=== PATIENT | female | born 1965 | race Caucasian/White ===

== ENCOUNTER 2016-10-30 08:57 | Emergency (ER) | payer OTHER ==
[~2016-10-30] VITALS: Ht 162.6 cm; Wt 91.0 kg
[~2016-10-30 08:57] MED LIST: AMT24 PO; AMT50 PO; ASPI81TA28 PO; ATOR-22 PO; BISA10SU38 PR; CHOL20007 PO; CLON0.5T3 PO; CYCL10TA6 PO; DICY20TA10 PO; ESOM20CA PO; GABA-113 PO; METF-384 PO; PANT40TA PO; POLY335025 PO; PROM25TA9 PO; QUET1TAB34 PO; SENN-65 PO; SNQ/25 PO; ZNTT/150 PO; ZOLP5TAB6 PO
[2016-10-30 09:05] VITALS: TEMP 36.6; Ht 162.6 cm; Wt 91.0 kg
[2016-10-30] MEDS ORDERED: OXYCODONE/ACETAMINOPHEN 5-325 TAB PO ONE (10:00)
--- NOTE | 2016-10-30 10:46 | EMERGENCY ROOM VISIT NOTE ---
History First contact with patient: 09:12 Chief Complaint: ANKLE PAIN Stated Complaint: L ANKLE,HIP PAIN History of Present Illness The patient is a 51 year old female who presents to the Emergency Room with complaints of left leg pain. The patient states that 1.5 months ago she fell down the steps. The patient states she saw her family doctor and had an x-ray of the ankle which was negative. The patient states she has also seen her lead carpenter. She states she has an MRI possibly of her ankle scheduled. The patient states that the pain is in the left ankle and feels a somewhat radiates to the hip. She states that it is knifelike and she rates her discomfort a 6/ 10. She states she had a hematoma to the left anterior lower extremity but that has markedly improved. She denies any low back pain. She denies any loss of bowel or bladder control. She denies any saddle anesthesia. She denies any weakness in the lower extremities. She denies any abdominal pain, nausea or vomiting. Review of Systems A 10 system review of systems was completed with positives and pertinent negatives listed in the HPI. Past Medical/Surgical History Medical Problems: (1) Anxiety disorder (2) Colonoscopy (3) Exploratory laparotomy (4) History of - hysterectomy (5) History of seizure Social History Smoking Status: Never Smoker Alcohol Use: none Drug Use: none Marital Status: Housing Status: lives with family Current/Historical Medications Scheduled Amitriptyline Hcl (Elavil), 100 MG PO HS Aspirin (Aspirin Ec), 81 MG PO DAILY Atorvastatin (Lipitor), 20 MG PO DAILY Cholecalciferol (Vitamin D3), 2,000 UNITS PO DAILY Doxepin (Sinequan), 25 MG PO HS Gabapentin (Neurontin), 300 MG PO TID Lubiprostone (Amitiza), 24 MCG PO BID Metformin Hcl (Glucophage), 1,000 MG PO BIDM Methylprednisolone (Medrol Dosepak), 1 PKT PO UD Pantoprazole (Protonix), 40 MG PO DAILY Quetiapine Fumarate (Seroquel), 100 MG PO AM & AFTERNOON Ranitidine (Zantac), 150 MG PO BID Scheduled PRN Clonazepam (Klonopin), 1 MG PO TID PRN for Anxiety Cyclobenzaprine Hcl (Flexeril), 10 MG PO BID PRN for SPASMS Dicyclomine Hcl (Dicyclomine Hcl), 20 MG PO BID PRN for ABD PAIN Oxycodone Ir (Roxicodone Ir), 1-2 TAB PO Q4H PRN for Pain Polyethylene Glycol 3350 (Miralax), 1 SCOOPS PO DIRECTED PRN for Constipation Promethazine Hcl (Phenergan), 25 MG PO Q8 PRN for Nausea Senna/Docusate Sod (Senokot S), 2 TAB PO BID PRN for Constipation Zolpidem Tartrate (Zolpidem Tartrate), 5 MG PO HS PRN for Sleep Allergies Coded Allergies: Metoclopramide (Verified Allergy, Intermediate, "NEURO COMPLICATIONS", 10/30) Ondansetron (Unverified Allergy, Unknown, HEART RACES, 10/30/16) Penicillins (Verified Allergy, Unknown, UNKNOWN, 10/30/16) Erythromycin (Verified Adverse Reaction, Unknown, NAUSEA, 10/30/16) Physical Exam Vital Signs Date Time Temp Pulse Resp B/P Pulse Ox O2 Delivery O2 Flow Rate FiO2 10/30/16 14:44 84 18 143/104 97 10/30/16 13:54 87 20 132/101 97 Room Air 10/30/16 12:00 86 18 145/111 98 Room Air 10/30/16 10:45 83 16 125/88 97 Room Air 10/30/16 09:05 36.6 89 18 142/91 97 Room Air Physical Exam VITALS: Vitals are noted on the nurse's note and reviewed by myself. Vital signs stable. GENERAL: This 51-year-old female, in no acute distress, nondiaphoretic, well- developed well-nourished. SKIN: There is a very small hematoma to the left anterior tib-fib. There is no tenting of the skin. Capillary reflex less than 2 seconds. HEAD: Normocephalic atraumatic. EARS: The external ears are normal in appearance EYES: Pupils equal round and reactive to light and accommodation. Conjunctivae without injection, sclerae without icterus. Extraocular movements intact. NOSE: Patent, turbinates without inflammation or discharge. MOUTH: Mucous membranes moist. Tonsils are not enlarged. Pharynx without erythema or exudate. Uvula midline. Airway patent. Tongue does not deviate. NECK: Supple without nuchal rigidity. No lymphadenopathy. No thyromegaly. Cervical spine is nontender. No JVD. HEART: Regular rate and rhythm without murmurs gallops or rubs. LUNGS: Clear to auscultation bilaterally without wheezes, rales or rhonchi. No retractions or accessory muscle use. ABDOMEN: Positive bowel sounds x 4. Soft, nontender, without masses or organomegaly. MUSCULOSKELETAL: No muscle atrophy, erythema, or edema noted. Full range of motion in all extremities. There is mild tenderness to palpation to the left hip. There is tenderness to palpation to the lateral aspect of the left ankle. Normal gait. Strength 5/5 throughout. NEURO: Patient was alert and oriented to person place and time. No focal neurological deficits. Medical Decision & Procedures ER Provider Diagnostic Interpretation: [~ rep ct add3]] MRI OF LUMBAR SPINE WITHOUT IV CONTRAST CLINICAL HISTORY: Low back pain. Left leg pain. Fracture suggested by x-ray. COMPARISON STUDY: Radiographs of lumbar spine dated 10/30/2016. TECHNIQUE: MRI of lumbar spine is performed utilizing various T1 and T2-weighted sequences in the axial and sagittal planes. IV contrast was not administered for this examination. FINDINGS: Lumbar spine: Vertebral body height and alignment are maintained throughout the lumbar spine. There is no MRI evidence of fracture. There is straightening of the lumbar lordosis. Marrow signal intensity is slightly heterogeneous. Small anterior osteophytes are noted throughout. Chronic degenerative endplate change is identified at L2-L3. The transverse and spinous processes are intact. No spondylolysis is seen. Minimal degenerative endplate edema is present at L5-S1. Intervertebral discs: There is mild degenerative disc desiccation throughout the lumbar spine. Loss of height is seen at L2-L3 and L5-S1. Spinal cord: The visualized spinal cord is normal in morphology and signal intensity. Conus medullaris terminates at the T12-L1 interspace. The nerve roots of the cauda equina are normal in morphology. L1-L2: Unremarkable. L2-L3: There is broad-based posterior disc bulge with annular fissure. There is no significant acquired compromise of the central canal at this level. The neural foramina are patent. L3-L4: Unremarkable. L4-L5: Minimal facet arthropathy is of no consequence. The central canal and neural foramina are widely patent. L5-S1: There is a disc herniation eccentric to the left. There is a superiorly extruded disc fragment on the left which measures up to 1.7 cm. This narrows the left aspect of the central canal where there is a minimum AP diameter of 4.5 mm. This impinges on the exiting left L5 and the transiting left sided sacral nerve roots. There is moderate subarticular stenosis on the left. Facet arthropathy is of no consequence. The neural foramina are patent. Sacrum: Visualized sacrum is normal in morphology and signal intensity. Soft tissues: The paraspinous soft tissues are normal as visualized. Partially imaged retroperitoneal structures are grossly normal but incompletely assessed. IMPRESSION: 1. There is no MRI evidence of fracture as clinically queried. 2. There is a disc herniation eccentric to the left at L5-S1 with a large superiorly extruded fragment. This impinges on the exiting left L5 and the transiting left-sided sacral nerve roots. 3. Mild spondylotic change at the remaining lumbar levels as above. See discussion for detailed level by level analysis. LEFT ANKLE 3 VIEWS CLINICAL HISTORY: Fall with left ankle pain. FINDINGS: 3 views of the left ankle are obtained. No prior studies are available for comparison at the time of dictation. The skeletal structures are well mineralized. No fracture is seen. The ankle mortise is intact. There is no ankle joint effusion. The overlying soft tissues are within normal limits. IMPRESSION: No acute bony abnormality is seen in the left ankle. LEFT FEMUR 3 VIEWS CLINICAL HISTORY: Fall with left leg pain. FINDINGS: AP, frog-leg, and lateral views of the left femur are obtained. No prior studies are available for comparison at the time of dictation. The skeletal structures are well mineralized. No left femoral fracture is seen. The visualized left hemipelvis appears intact. Mild sclerotic change is present in the left sacroiliac joint. The hip and knee joints appear preserved. The overlying soft tissues are within normal limits. A large phlebolith is noted in the pelvis. IMPRESSION: There is no radiographic evidence of left femoral fracture. L-SPINE MIN 4 VIEWS ROUTINE CLINICAL HISTORY: Fall. COMPARISON: Lumbar spine radiographs April 29, 2011. FINDINGS: There is slight loss of height of the superior endplate of L3. This is new since exam of April 29, 2011. Otherwise, vertebral body heights are maintained. There is no definite acute fracture. Mild multilevel degenerative disc disease and facet arthrosis is present. Sacroiliac joints are intact. IMPRESSION: 1. Mild loss of height of the superior endplate of L3. This is age indeterminate although favor a chronic finding. 2. Mild multilevel degenerative disc disease and facet arthrosis of the lumbar spine. PELVIS 1 OR 2 VIEW ROUTINE CLINICAL HISTORY: Fall. COMPARISON STUDY: CT of the abdomen and pelvis January 07, 2013. FINDINGS: The sacroiliac joints and symphysis pubis are intact. There is no acute fracture within the pelvis or the hips. Hip joint spaces are preserved. There is mild osteophytosis of the hips. A left pelvic calcification represents a phlebolith. IMPRESSION: No acute fracture within the pelvis or hips. Medications Administered Medications (Trade) Dose Ordered Sig/Yenny Route Start Time Stop Time Status Last Admin Dose Admin Oxycodone/ Acetaminophen (Percocet 5-325mg Tab) 1 tab NOW ONCE PO 10/30/16 10:00 10/30/16 10:01 DC 10/30/16 10:44 1 TAB Morphine Sulfate (MoRPHine SULFATE INJ) 4 mg NOW STAT IM 10/30/16 14:01 10/30/16 14:02 DC 10/30/16 14:12 4 MG ED Course The patient was seen and examined. Previous visits were reviewed. The patient is afebrile. She is nontoxic in appearance. She was initially given 1 oral Percocet. The patient complains of left leg and ankle pain after falling nearly 2 months ago. She has been evaluated by her family doctor and lead carpenter. X-rays did not reveal any significant abnormality. There was a question of a possible compression fracture at L3. The patient's symptoms seemed more likely to represent lumbar radiculopathy. She has a burning pain radiates down the lateral aspect of her left leg. However, she denies any true back pain. She has not had any loss of bowel or bladder control, saddle anesthesia, numbness, tingling or weakness in the lower extremities. I did obtain an MRI of the lumbar spine which reveals a herniated lumbar disc. I discussed the case with Dr. Desir. He recommends Toradol, gabapentin, prednisone and pain medication. He can follow the patient in the office. The patient stated that Toradol does not help her. She states she is already on gabapentin 300 mg 3 times a day for diabetic neuropathy. She did accept the Medrol Dosepak and pain medication. She should return to the emergency Department with any worsening symptoms. Otherwise, she should contact Dr. Desir's office to schedule a follow-up appointment for further evaluation and management. The case was discussed with who agrees with the assessment and treatment plan. Medical Decision DIFFERENTIAL DIAGNOSIS: Lumbar strain, degenerative disc disease, spondylolisthesis, herniated disc, spinal stenosis, osteoporosis, fracture, cauda equina syndrome, neoplasm, infection, inflammatory arthritis, extremity fracture, contusion, sprain, among others. [place] Drug Monitoring Program Search Results: patient reviewed within database, no issues identified Impression Primary Impression: Herniated lumbar intervertebral disc Additional Impression: Back pain with radiation Departure Information Dispostion Home / Self-Care Condition GOOD Prescriptions Oxycodone Ir (Roxicodone Ir) 5 Mg Tab 1-2 TAB PO Q4H Y for Pain, #36 TAB For Initial Treatment Prov: Yuni Chavez PA-C 10/30/16 Methylprednisolone (MEDROL DOSEPAK) 4 Mg Socrates 1 PKT PO UD, #1 PKT Prov: Yuni Chavez PA-C 10/30/16 Referrals Fatou Dailey M.D. (PCP) Behzad Desir, DO Patient Instructions ED Disk Intervertebral Herniated, My [facility] Additional Instructions Motrin 600 mg every 6-8 hours for moderate pain Continue your gabapentin Oxy IR 1-2 tablets every 4-6 hrs as needed for worse pain. No driving or alcohol use with Oxy IR. Contact Dr. Desir's office to schedule a follow-up appointment for further evaluation and management; [phone] Return with any fevers, worsening symptoms, loss of bowel or bladder control, numbness in the groin or generalized worsening symptoms Problem Qualifiers
--- NOTE | 2016-10-30 10:52 | DIAGNOSTIC IMAGING REPORT ---
L-SPINE MIN 4 VIEWS ROUTINE CLINICAL HISTORY: Fall. COMPARISON: Lumbar spine radiographs April 29, 2011. FINDINGS: There is slight loss of height of the superior endplate of L3. This is new since exam of April 29, 2011. Otherwise, vertebral body heights are maintained. There is no definite acute fracture. Mild multilevel degenerative disc disease and facet arthrosis is present. Sacroiliac joints are intact. IMPRESSION: 1. Mild loss of height of the superior endplate of L3. This is age indeterminate although favor a chronic finding. 2. Mild multilevel degenerative disc disease and facet arthrosis of the lumbar spine. Electronically signed by: Jhonathan Claire M.D. 10/30/2016 10:51 AM Dictated Date/Time: 10/30/2016 10:48 AM
--- NOTE | 2016-10-30 13:34 | DIAGNOSTIC IMAGING REPORT ---
MRI OF LUMBAR SPINE WITHOUT IV CONTRAST CLINICAL HISTORY: Low back pain. Left leg pain. Fracture suggested by x-ray. COMPARISON STUDY: Radiographs of lumbar spine dated 10/30/2016. TECHNIQUE: MRI of lumbar spine is performed utilizing various T1 and T2-weighted sequences in the axial and sagittal planes. IV contrast was not administered for this examination. FINDINGS: Lumbar spine: Vertebral body height and alignment are maintained throughout the lumbar spine. There is no MRI evidence of fracture. There is straightening of the lumbar lordosis. Marrow signal intensity is slightly heterogeneous. Small anterior osteophytes are noted throughout. Chronic degenerative endplate change is identified at L2-L3. The transverse and spinous processes are intact. No spondylolysis is seen. Minimal degenerative endplate edema is present at L5-S1. Intervertebral discs: There is mild degenerative disc desiccation throughout the lumbar spine. Loss of height is seen at L2-L3 and L5-S1. Spinal cord: The visualized spinal cord is normal in morphology and signal intensity. Conus medullaris terminates at the T12-L1 interspace. The nerve roots of the cauda equina are normal in morphology. L1-L2: Unremarkable. L2-L3: There is broad-based posterior disc bulge with annular fissure. There is no significant acquired compromise of the central canal at this level. The neural foramina are patent. L3-L4: Unremarkable. L4-L5: Minimal facet arthropathy is of no consequence. The central canal and neural foramina are widely patent. L5-S1: There is a disc herniation eccentric to the left. There is a superiorly extruded disc fragment on the left which measures up to 1.7 cm. This narrows the left aspect of the central canal where there is a minimum AP diameter of 4.5 mm. This impinges on the exiting left L5 and the transiting left sided sacral nerve roots. There is moderate subarticular stenosis on the left. Facet arthropathy is of no consequence. The neural foramina are patent. Sacrum: Visualized sacrum is normal in morphology and signal intensity. Soft tissues: The paraspinous soft tissues are normal as visualized. Partially imaged retroperitoneal structures are grossly normal but incompletely assessed. IMPRESSION: 1. There is no MRI evidence of fracture as clinically queried. 2. There is a disc herniation eccentric to the left at L5-S1 with a large superiorly extruded fragment. This impinges on the exiting left L5 and the transiting left-sided sacral nerve roots. 3. Mild spondylotic change at the remaining lumbar levels as above. See discussion for detailed level by level analysis. Dictated: 10/30/2016 1:07 PM Transcribed: 10/30/2016 1:33 PM [email or web address] Electronically signed by: Andre Kaiser M.D. 10/30/2016 1:45 PM Dictated Date/Time: 10/30/2016 1:07 PM
[2016-10-30] MEDS ORDERED: MoRPHine SULFATE 4 MG/ML 1 ML CARP\\VIAL IM STA (14:01)
[2016-10-30] MEDS ORDERED: OXYC1TAB3 PO (14:03)
[2016-10-30] MEDS ORDERED: METH4PAK PO (14:03)
[2016-10-30 14:44] VITALS: BP 143/104; PULSE 84; O2SAT 97
[2016-12-19] MEDS ORDERED: IBUP-1451 PO (13:37)
[2017-01-06] MEDS ORDERED: GABA400C PO (08:07)
== END 2016-10-30 14:46 | disposition home or self-care (01) ==
LOC: C.EDB 08:59
DX: M51.26 Other intervertebral disc displacement, lumbar region (principal); M54.5 Low back pain; M25.572 Pain in left ankle and joints of left foot; F41.9 Anxiety disorder, unspecified; Z90.710 Acquired absence of both cervix and uterus; Z79.82 Long term (current) use of aspirin

== ENCOUNTER → 2016-11-12 | Outpatient (CLI) | payer OTHER ==
[~2016-11-12] MED LIST changes: -BISA10SU38 PR; -ESOM20CA PO; +GABA400C PO; +IBUP-1451 PO; +OXYC1TAB3 PO
--- NOTE | 2016-11-12 11:18 | DIAGNOSTIC IMAGING REPORT ---
Venous Doppler left leg VENOUS DOPP LOWER EXT UNILAT CLINICAL HISTORY: I83.221 pain. Edema. TECHNIQUE: Venous Doppler COMPARISON STUDY: None FINDINGS: Normal study IMPRESSION: Normal study Electronically signed by: Jose L Plascencia M.D. 11/12/2016 11:17 AM Dictated Date/Time: 11/12/2016 11:16 AM
== END | disposition home or self-care (01) ==
LOC: C.ULTR 10:36
PROVIDERS: ATTEND Podiatrist
DX: I83.221 Varicose veins of left lower extremity with both ulcer of thigh and inflammation (principal)

== ENCOUNTER 2017-08-29 11:39 | Emergency (ER) | payer OTHER ==
[~2017-08-29] VITALS: Ht 157.5 cm; Wt 90.0 kg
[~2017-08-29 11:39] MED LIST changes: +CLB/200 PO; -GABA-113 PO; -OXYC1TAB3 PO; +QUET1TAB11 PO; +TRAM-10 PO
[2017-08-29 11:44] VITALS: TEMP 36.9; Ht 157.5 cm; Wt 90.0 kg
[2017-08-29] MEDS ORDERED: HYDROmorphone INJ 1 MG/ML SYR IV STA (12:24)
[2017-08-29] MEDS ORDERED: PROMETHAZINE HCL INJ 25 MG in SODIUM CHLORIDE 0.9% 50ML 50 ML IV STA (12:24)
[2017-08-29 12:36] LABS: BASO % 0.4 %; BASO ABS # 0.05 K/uL (0-0.2); COMPLETE YES; EOS % 0.6 %; HEMATOCRIT 42.6 % (37-47); IG% 0.3 %; LYMPH % 18.3 %; LYMPH ABS # 2.17 K/uL (1.2-3.4); MEAN CORPUSCULAR HEMOGLOBIN 32.3 pg (25-34); MEAN CORPUSCULAR HGB CONC 33.3 g/dl (32-36); MEAN PLATELET VOLUME 10.1 fL (7.4-10.4); MONO % 5.6 %; NEUT % 74.8 %; PLATELET COUNT 253 K/uL (130-400); RED BLOOD COUNT 4.39 M/uL (4.2-5.4); WHITE BLOOD COUNT 11.88 K/uL (4.8-10.8)
[2017-08-29 12:45] LABS: ALT/SGPT 46 U/L (12-78); AST/SGOT 29 U/L (15-37); BLOOD UREA NITROGEN 14 mg/dl (7-18); BUN/CREATININE RATIO 12.7 (10-20); CALCIUM 9.4 mg/dl (8.5-10.1); CARBON DIOXIDE 22 mmol/L (21-32); CHLORIDE 108 mmol/L (98-107); CREATININE 1.12 mg/dl (0.60-1.20); GLUCOSE 128 mg/dl (70-99); POTASSIUM 3.9 mmol/L (3.5-5.1); SODIUM 137 mmol/L (136-145)
[2017-08-29] MEDS ORDERED: OPTIRAY 320 IV PRN (12:45)
[2017-08-29 12:48] LABS: ALKALINE PHOSPHATASE 119 U/L (45-117)
--- NOTE | 2017-08-29 12:59 | EMERGENCY ROOM VISIT NOTE ---
History Report prepared by Namrata: Isabel Lion Under the Supervision of: Dr. Jose Luis Watson M.D. First contact with patient: 12:13 Chief Complaint: ABDOMINAL PAIN Stated Complaint: UPSET STOMACH Nursing Triage Summary: "very upset stomach x1 week". Nausea and vomiting, and passing out since last night. History of Present Illness The patient is a 52 year old female who presents to the Emergency Room with complaints of intermittent abdominal pain for one week [employer]. She also notes a "really bad" headache. She currently rates her pain a 5/10 in severity. She notes nausea, vomiting, and syncope since last night. She has a history of hysterectomy, adhesions, and bowel issues. Upon speaking with the patient's daughter via phone, the patient took more doses of her medication than prescribed. The daughter notes that her mother's prescription is due for a refill September 06, 2017, though she has already run out of the medication. The patient admitted to taking 1.5 doses of Seroquel last night, though denies taking amitriptyline. The patient claims that she has not been sleeping well for the past three weeks. Per the , the patient has "slept for the past four days straight, because she is high on pills." The patient notes that she is currently depressed. Source of History: patient Onset: one week [employer] Position: abdomen Symptom Intensity: 5/10 Quality: other (abdominal pain) Timing: intermittent Associated Symptoms: + headache, + nausea, + vomiting, + abdominal pain Note: She notes syncope. Review of Systems See HPI for pertinent positives & negatives. A total of 10 systems reviewed and were otherwise negative. Past Medical & Surgical Medical Problems: (1) Anxiety disorder (2) Colonoscopy (3) Exploratory laparotomy (4) History of - hysterectomy (5) History of seizure Depression Family History No pertinent family history reported. Social History Smoking Status: Never Smoker Alcohol Use: none Drug Use: none Marital Status: Housing Status: lives with family Occupation Status: unemployed Current/Historical Medications Scheduled Amitriptyline Hcl (Elavil), 100 MG PO HS Aspirin (Aspirin Ec), 81 MG PO DAILY Atorvastatin (Lipitor), 20 MG PO DAILY Celecoxib (CeleBREX), 200 MG PO DAILY Cholecalciferol (Vitamin D3), 2,000 UNITS PO DAILY Doxepin (Sinequan), 25 MG PO HS Gabapentin (Neurontin), 400 MG PO TID Lubiprostone (Amitiza), 24 MCG PO BID Metformin Hcl (Glucophage), 1,000 MG PO BIDM Pantoprazole (Protonix), 40 MG PO DAILY Quetiapine Fumarate (Seroquel), 300 MG PO DAILY Quetiapine Fumarate (Seroquel), 100 MG PO BID Ranitidine (Zantac), 150 MG PO BID Scheduled PRN Clonazepam (Klonopin), 1 MG PO TID PRN for Anxiety Cyclobenzaprine Hcl (Flexeril), 10 MG PO BID PRN for SPASMS Dicyclomine Hcl (Dicyclomine Hcl), 20 MG PO BID PRN for ABD PAIN Polyethylene Glycol 3350 (Miralax), 1 SCOOPS PO DIRECTED PRN for Constipation Promethazine Hcl (Phenergan), 25 MG PO Q8 PRN for Nausea Senna/Docusate Sod (Senokot S), 2 TAB PO BID PRN for Constipation Zolpidem Tartrate (Zolpidem Tartrate), 5 MG PO HS PRN for Sleep Allergies Coded Allergies: Metoclopramide (Verified Allergy, Intermediate, "NEURO COMPLICATIONS", 08/29/17) Ondansetron (Unverified Allergy, Unknown, HEART RACES, 08/29/17) Penicillins (Verified Allergy, Unknown, UNKNOWN, 08/29/17) Erythromycin (Verified Adverse Reaction, Unknown, NAUSEA, 08/29/17) Physical Exam Vital Signs Date Time Temp Pulse Resp B/P (MAP) Pulse Ox O2 Delivery O2 Flow Rate FiO2 08/29/17 17:28 86 18 130/86 97 Room Air 08/29/17 16:52 85 08/29/17 16:45 85 18 127/84 98 Room Air 08/29/17 14:49 85 16 145/94 98 Room Air 08/29/17 13:47 84 18 142/87 97 Room Air 08/29/17 12:50 88 08/29/17 12:46 89 18 123/95 97 Room Air 08/29/17 11:44 36.9 101 18 145/102 97 Room Air Physical Exam GENERAL: Patient is a healthy-appearing well-nourished female, crying on exam. HEAD: Normocephalic atraumatic EYES: Ocular movements intact pupils equal and react to light OROPHARYNX mucous membranes are moist no exudates present no erythema or edema present NECK: Supple no nuchal rigidity. No evidence of meningitis or encephalitis on exam. CHEST: Good equal expansion LUNGS: Clear and equal to auscultation CARDIAC: Normal S1 and S2 ABDOMEN: Soft tender RUQ no guarding BACK: No CVA tenderness EXTREMITIES: No pain upon palpation normal muscle strength in all groups no clubbing cyanosis or edema NEURO: Patient has flat affect, though is following commands and is answering questions appropriately. Alert and oriented x3 Cranial Nerves 2-12 grossly intact. Medical Decision & Procedures ER Provider Diagnostic Interpretation: Radiology results as stated below per my review and radiologist interpretation: ABDOMINAL ULTRASOUND, RIGHT UPPER QUADRANT HISTORY: Right upper quadrant abdominal pain. COMPARISON: Right upper quadrant ultrasound January 07, [address] of the abdomen and pelvis July 27, 2017 FINDINGS: Hepatic echogenicity is increased. This suggests fatty infiltration. A 1.9 cm subcapsular echogenic focus within the medial segment of the left hepatic lobe likely reflects an area of pronounced fatty infiltration or hemangioma. No additional hepatic lesions are present. There is no biliary ductal dilatation. No gallstones are identified. There is no gallbladder wall thickening. There may be minimal sludge within the gallbladder. The pancreas is obscured by overlying bowel gas. There is no right hydronephrosis. IMPRESSION: 1. No gallstones or biliary ductal dilatation. Possible minimal sludge within the gallbladder. No gallbladder wall thickening. 2. Fatty infiltration of the liver. 3. 1.9 cm subcapsular echogenic medial segment left hepatic lobe focus which favors a hemangioma. Electronically signed by: Jhonathan Claire M.D. 08/29/2017 1:41 PM Dictated Date/Time: 08/29/2017 1:[address] OF THE ABDOMEN AND PELVIS WITH CONTRAST CLINICAL HISTORY: Right upper quadrant abdominal pain. COMPARISON STUDY: CT of the abdomen and pelvis July 27, 2017. TECHNIQUE: Following IV administration of 120 mL of Optiray-320, axial images of the abdomen and pelvis were obtained from the lung bases to the proximal femurs. Images were reviewed in the axial, sagittal, and coronal planes. IV contrast was administered without complication. A dose lowering technique was utilized adhering to the principles of ALARA. Oral contrast was administered. CT DOSE: 568.09 mGy.cm FINDINGS: Fatty infiltration of the liver is noted. The spleen, adrenal glands, kidneys and pancreas are unremarkable. There is no biliary or pancreatic ductal dilatation. There is no peripancreatic or pericholecystic infiltration. There is no hydronephrosis. There is a moderate amount stool within the colon. There is no evidence for a bowel obstruction. The appendix is normal. There is no lymphadenopathy. There is no ascites. No suspicious osseous lesions are present. IMPRESSION: 1. No acute process within the abdomen or pelvis. 2. Fatty infiltration of the liver. 3. Moderate amount of stool within the colon. No bowel obstruction. Normal appendix. Electronically signed by: Jhonathan Claire M.D. 08/29/2017 3:25 PM Dictated Date/Time: 08/29/2017 3:06 PM Laboratory Results 08/29/17 12:03 Red Blood Count 4.39, Mean Corpuscular Volume 97.0, Mean Corpuscular Hemoglobin 32.3, Mean Corpuscular Hemoglobin Concent 33.3, Mean Platelet Volume 10.1, Neutrophils (%) (Auto) 74.8, Lymphocytes (%) (Auto) 18.3, Monocytes (%) (Auto) 5.6, Eosinophils (%) (Auto) 0.6, Basophils (%) (Auto) 0.4, Neutrophils # (Auto) 8.89, Lymphocytes # (Auto) 2.17, Monocytes # (Auto) 0.66, Eosinophils # (Auto) 0.07, Basophils # (Auto) 0.05 08/29/17 12:03 Test 08/29/17 12:03 08/29/17 12:45 08/29/17 16:11 08/29/17 16:12 White Blood Count 11.88 K/uL (4.8-10.8) Red Blood Count 4.39 M/uL (4.2-5.4) Hemoglobin 14.2 g/dL (12.0-16.0) Hematocrit 42.6 % (37-47) Mean Corpuscular Volume 97.0 fL (80-100) Mean Corpuscular Hemoglobin 32.3 pg (25-34) Mean Corpuscular Hemoglobin Concent 33.3 g/dl (32-36) Platelet Count 253 K/uL (130-400) Mean Platelet Volume 10.1 fL (7.4-10.4) Neutrophils (%) (Auto) 74.8 % Lymphocytes (%) (Auto) 18.3 % Monocytes (%) (Auto) 5.6 % Eosinophils (%) (Auto) 0.6 % Basophils (%) (Auto) 0.4 % Neutrophils # (Auto) 8.89 K/uL (1.4-6.5) Lymphocytes # (Auto) 2.17 K/uL (1.2-3.4) Monocytes # (Auto) 0.66 K/uL (0.11-0.59) Eosinophils # (Auto) 0.07 K/uL (0-0.5) Basophils # (Auto) 0.05 K/uL (0-0.2) RDW Standard Deviation 49.7 fL (36.4-46.3) RDW Coefficient of Variation 14.0 % (11.5-14.5) Immature Granulocyte % (Auto) 0.3 % Immature Granulocyte # (Auto) 0.04 K/uL (0.00-0.02) Anion Gap 7.0 mmol/L (3-11) Est Creatinine Clear Calc Drug Dose 60.6 ml/min Estimated GFR () 64.9 Estimated GFR (Non- 56.0 BUN/Creatinine Ratio 12.7 (10-20) Calcium Level 9.4 mg/dl (8.5-10.1) Total Bilirubin 0.3 mg/dl (0.2-1) Direct Bilirubin < 0.1 mg/dl (0-0.2) Aspartate Amino Transf (AST/SGOT) 29 U/L (15-37) Alanine Aminotransferase (ALT/SGPT) 46 U/L (12-78) Alkaline Phosphatase 119 U/L (45-117) Total Creatine Kinase 76 U/L (26-192) Creatine Kinase MB 0.5 ng/ml (0.5-3.6) Creatine Kinase MB Ratio 0.7 (0-3.0) Troponin I < 0.015 ng/ml (0-0.045) Total Protein 8.2 gm/dl (6.4-8.2) Albumin 4.2 gm/dl (3.4-5.0) Lipase 109 U/L (73-393) Urine Color YELLOW Urine Appearance CLEAR (CLEAR) Urine pH 5.0 (4.5-7.5) Urine Specific [place] 1.017 (1.000-1.030) Urine Protein NEG (NEG) Urine Glucose (UA) NEG (NEG) Urine Ketones NEG (NEG) Urine Occult Blood NEG (NEG) Urine Nitrite POS (NEG) Urine Bilirubin NEG (NEG) Urine Urobilinogen NEG (NEG) Urine Leukocyte Esterase MODERATE (NEG) Urine WBC (Auto) >30 /hpf (0-5) Urine RBC (Auto) 0-4 /hpf (0-4) Urine Hyaline Casts (Auto) 5-10 /lpf (0-5) Urine Epithelial Cells (Auto) 10-20 /lpf (0-5) Urine Bacteria (Auto) 4+ (NEG) Urine Opiates Screen POS (NEG) Urine Methadone, Qualitative NEG (NEG) Urine Barbiturates NEG (NEG) Urine Phencyclidine (PCP) Level NEG (NEG) Ur Amphetamine/Methamphetamine NEG (NEG) MDMA (Ecstasy) Screen NEG (NEG) Urine Benzodiazepines Screen NEG (NEG) Urine Cocaine Metabolite NEG (NEG) Urine Marijuana (THC) POS (NEG) Salicylates Level 5.0 mg/dl (2.8-20) Acetaminophen Level < 2 ug/ml (10-30) Ethyl Alcohol mg/dL < 3.0 mg/dl (0-3) Labs reviewed by ED physician. Medications Administered Medications (Trade) Dose Ordered Sig/Yenny Route Start Time Stop Time Status Last Admin Dose Admin Hydromorphone HCl (Dilaudid Inj) 1 mg NOW STAT IV 08/29/17 12:24 08/29/17 12:27 DC 08/29/17 12:38 1 MG Promethazine HCl 25 mg/Sodium Chloride 51 ml @ 204 mls/hr NOW STAT IV 08/29/17 12:24 08/29/17 12:38 DC 08/29/17 12:37 204 MLS/HR Ceftriaxone Sodium (Rocephin Inj) 1 gm NOW STAT IV 08/29/17 13:10 08/29/17 13:11 DC 08/29/17 13:44 1 GM Magnesium Citrate (Citrate Of Magnesia Soln) 296 ml NOW STAT PO 08/29/17 17:20 08/29/17 17:22 DC 08/29/17 17:27 296 ML ECG Rate (beats per minute): 84 Rhythm: sinus rhythm Findings: PVC, no acute ischemic change ED Course 1220: Past medical records reviewed. The patient was evaluated in room A3. A complete history and physical examination was performed. 1224: Ordered Promethazine HCl 25 mg/Sodium Chloride 51 ml@ 204 mls/hr IV, Dilaudid 1 mg IV 1310: Ordered Rocephin 1 gm IV 1352: I reassessed the patient at this time. She is resting comfortably. 1550: I reassessed the patient at this time. The patient gave me permission to speak to her daughter regarding her case. It was revealed that the patient had taken an extra dose of her prescribed medication Seroquel last night. I am reassessing the patient for possible overdose. 1555: I spoke with Farrah, case management. We discussed the patient's case. She will evaluate the patient. 1624: I spoke with Farrah case management. We discussed the patient's case. She notes the patient will not allow her to speak with her daughter. The patient denies suicidal ideation and homicidal ideation. The patient with follow up with [facility]. 1737: The patient left AMA and went home. Medical Decision Prior records/ancillary studies reviewed. Triage Nursing notes reviewed. Additional history obtained from daughter. The patient's history was concerning for abdominal pain. Differential diagnosis: Etiologies such as appendicitis, diverticulitis, PUD, biliary pathology, UTI, pancreatitis, obstruction, mesenteric ischemia, aortic pathology, infections, inflammatory bowel disease, renal colic, as well as others were entertained. The patient's history was concerning for possible psychiatric disturbance. Differential diagnosis: Etiologies such as mood disorder, infection, hypoglycemia, electrolyte abnormalities, cardiac sources, intracerebral event, toxicologic, neurologic, as well as others were entertained. The patient is a 52 year old female who presents to the ED with complaints of Right upper quadrant abd pain. That has been going on for 2 weeks. An IV was established, patient given Toradol, Dilaudid, Zofran. Repeat examination revealed improvement patient's symptoms. The patient doesn't slight elevation in her white blood count cell count however I will note is afebrile here in the emergency department. In addition she does appear to have a large amount of white blood cells in her urine and for this reason the patient was started on Rocephin. The ultrasound of the gallbladder was concerning for a large amount of sludge. I discussed my findings with the patient and using shared medical decision making both patient and I felt that she should use a CAT scan of the abdomen and pelvis as she has had episodes of adhesions previously. After the patient's CAT scan came back the patient's daughter called over concerns that the patient was misusing her medication and maybe overdosing at home. The patient herself gave me permission to speak with her daughter. I did raise these concerns that the patient who does not feel that she has been abusing her medications. She does admit to taking one and a half pills of Seroquel last evening. She denies being suicidal or homicidal. She is refusing speak with case management therefore I strongly recommended to the patient's daughter that she come in to the hospital so we could all discuss her case together. The patient is adamantly refusing to be admitted to the hospital though family myself and case management were all present for a family meeting. I again strongly recommended to the patient that she have a psychiatric evaluation. She is adamantly refusing. As she is not suicidal or homicidal she does not meet any 302 warrant criteria. The family is going to take the patient home. I recommended magnesium citrate cleanout for her abdominal pain. Impression Primary Impression: Right upper quadrant abdominal pain Scribe Attestation The scribe's documentation has been prepared under my direction and personally reviewed by me in its entirety. I confirm that the note above accurately reflects all work, treatment, procedures, and medical decision making performed by me. Departure Information Dispostion Against Medical Advice (home) Referrals Fatou Dailey M.D. (PCP) Forms Call Back Authorization, HOME CARE DOCUMENTATION FORM, IMPORTANT VISIT INFORMATION, School Instructions, Work Instructions Patient Instructions My [facility] Additional Instructions Take 1/2 bottle of Mag Citrate Repeat second half in six hours Clear liquid diet next 48 hours Return if symptoms worsen You have been examined and treated today on an emergency basis only. This is not a substitute for, or an effort to provide, complete comprehensive medical care. It is impossible to recognize and treat all injuries or illnesses in a single emergency department visit. It is therefore important that you follow up closely with Dr Dailey. Call as soon as possible for an appointment. Thank you for your time and consideration. I look forward to speaking with you again soon. Please don't hesitate to call us if you have any questions.
[2017-08-29 13:05] LABS: URINE APPEARANCE CLEAR (CLEAR); URINE BILIRUBIN NEG (NEG); URINE COLOR YELLOW; URINE NITRITE POS (NEG); URINE SPECIFIC GRAVITY 1.017 (1.000-1.030); UROBILINOGEN NEG (NEG)
[2017-08-29 13:08] LABS: MANUAL MICROSCOPIC REQUIRED? NO; REVIEW REQ? NO
[2017-08-29] MEDS ORDERED: CEFTRIAXONE SOD INJ 1 GM ADDVIAL IV STA (13:10)
--- NOTE | 2017-08-29 13:42 | DIAGNOSTIC IMAGING REPORT ---
ABDOMINAL ULTRASOUND, RIGHT UPPER QUADRANT HISTORY: Right upper quadrant abdominal pain. COMPARISON: Right upper quadrant ultrasound January 07, [address] of the abdomen and pelvis July 27, 2017 FINDINGS: Hepatic echogenicity is increased. This suggests fatty infiltration. A 1.9 cm subcapsular echogenic focus within the medial segment of the left hepatic lobe likely reflects an area of pronounced fatty infiltration or hemangioma. No additional hepatic lesions are present. There is no biliary ductal dilatation. No gallstones are identified. There is no gallbladder wall thickening. There may be minimal sludge within the gallbladder. The pancreas is obscured by overlying bowel gas. There is no right hydronephrosis. IMPRESSION: 1. No gallstones or biliary ductal dilatation. Possible minimal sludge within the gallbladder. No gallbladder wall thickening. 2. Fatty infiltration of the liver. 3. 1.9 cm subcapsular echogenic medial segment left hepatic lobe focus which favors a hemangioma. Electronically signed by: Jhonathan Claire M.D. 08/29/2017 1:41 PM Dictated Date/Time: 08/29/2017 1:37 PM
--- NOTE | 2017-08-29 15:26 | DIAGNOSTIC IMAGING REPORT ---
CT OF THE ABDOMEN AND PELVIS WITH CONTRAST CLINICAL HISTORY: Right upper quadrant abdominal pain. COMPARISON STUDY: CT of the abdomen and pelvis July 27, 2017. TECHNIQUE: Following IV administration of 120 mL of Optiray-320, axial images of the abdomen and pelvis were obtained from the lung bases to the proximal femurs. Images were reviewed in the axial, sagittal, and coronal planes. IV contrast was administered without complication. A dose lowering technique was utilized adhering to the principles of ALARA. Oral contrast was administered. CT DOSE: 568.09 mGy.cm FINDINGS: Fatty infiltration of the liver is noted. The spleen, adrenal glands, kidneys and pancreas are unremarkable. There is no biliary or pancreatic ductal dilatation. There is no peripancreatic or pericholecystic infiltration. There is no hydronephrosis. There is a moderate amount stool within the colon. There is no evidence for a bowel obstruction. The appendix is normal. There is no lymphadenopathy. There is no ascites. No suspicious osseous lesions are present. IMPRESSION: 1. No acute process within the abdomen or pelvis. 2. Fatty infiltration of the liver. 3. Moderate amount of stool within the colon. No bowel obstruction. Normal appendix. Electronically signed by: Jhonathan Claire M.D. 08/29/2017 3:25 PM Dictated Date/Time: 08/29/2017 3:06 PM
[2017-08-29 16:27] LABS: BENZODIAZEPINE, URINE NEG (NEG); COCAINE,URINE NEG (NEG); PHENCYCLIDINE, URINE NEG (NEG)
[2017-08-29 17:18] LABS: ACETAMINOPHEN < 2 ug/ml (10-30)
[2017-08-29] MEDS ORDERED: MAGNESIUM CITRATE 296 ML/BTL PO STA (17:20)
[2017-08-29 17:23] LABS: CKMB/CK RATIO 0.7 (0-3.0)
[2017-08-29 17:28] VITALS: BP 130/86; PULSE 86; O2SAT 97
[2017-08-31 23:50] LABS: COD UR NEGATIVE NG/ML (CUTOFF=50); HYDROCOD UR NEGATIVE NG/ML (CUTOFF=50); HYDROMOR UR NEGATIVE NG/ML (CUTOFF=50); MORPHINE UR NEGATIVE NG/ML (CUTOFF=50); NORHYDROCODONE CONF UR NEGATIVE NG/ML (CUTOFF=50); OXYMORPH UR NEGATIVE NG/ML (CUTOFF=50)
== END 2017-08-29 17:37 | disposition left against medical advice (07) ==
LOC: C.EDB 11:40 → C.EDA 17:37
DX: R10.11 Right upper quadrant pain (principal); R11.2 Nausea with vomiting, unspecified; R55 Syncope and collapse; F41.9 Anxiety disorder, unspecified; F32.9 Major depressive disorder, single episode, unspecified; Z90.710 Acquired absence of both cervix and uterus; Z98.890 Other specified postprocedural states; Z79.82 Long term (current) use of aspirin; Z79.899 Other long term (current) drug therapy

== ENCOUNTER 2021-08-06 21:15 | Inpatient (IN) ==
[2021-08-06 22:54] LABS: Basophils # (auto) 0.03 K/uL (0-0.2); Basophils % (auto) 0.2 %; Eosinophils # (auto) 0.04 K/uL (0-0.5); Eosinophils % (auto) 0.3 %; Hematocrit (blood only) 36.2 % (37-47); Hemoglobin 11.9 g/dL (12.0-16.0); Immature Granulocytes # (auto) 0.04 K/uL (0.00-0.02); Immature Granulocytes % (auto) 0.3 %; Lymphocytes % (auto) 13.7 %; Mean Corpuscular Hemoglobin 31.2 pg (25-34); Mean Corpuscular Hgb Conc 32.9 g/dL (32-36); Mean Platelet Volume 9.4 fL (7.4-10.4); Monocytes # (auto) 0.67 K/uL (0.11-0.59); Monocytes % (auto) 5.4 %; Neutrophils # (auto) 9.89 K/uL (1.4-6.5); Neutrophils % (auto) 80.1 %; Platelet Count 319 K/uL (130-400); RDW Coefficient of Variation 16.3 % (11.5-14.5); RDW Standard Deviation 56.7 fL (36.4-46.3); Red Blood Count 3.81 M/uL (4.2-5.4); White Blood Count 12.37 K/uL (4.8-10.8)
[2021-08-06 23:12] LABS: Albumin Level 3.1 gm/dl (3.4-5.0); BUN Creatinine Ratio 8.1 (10-20); Calcium 8.7 mg/dl (8.5-10.1); Creatinine Clr Calc Pharmacy 59.3 ml/min; Est GFR (African American) 74.2 ml/min; Potassium 3.2 mmol/L (3.5-5.1)
[2021-08-06 23:22] LABS: Albumin Globulin Ratio 0.8 (0.9-2); Bilirubin,Total 0.2 mg/dl (0.2-1); Globulin 3.7 gm/dl (2.5-4.0); Thyroid Stimulating Hormone 1.4 uIu/ml (0.300-4.500); Total Protein 6.8 gm/dl (6.4-8.2)
[2021-08-06 23:38] LABS: Acetaminophen < 2 ug/ml (10-30); Salicylate 3.9 mg/dl (2.8-20)
--- NOTE | 2021-08-06 23:41 | Emergency Department Note ---
Impression & Plan Seizure, Overdose Admission ED Provider Note HPI: The patient is a 56-year-old female who presents the emergency department with a reported Seroquel overdose. Patient reportedly took about 30 seperate 300 mg tablets at some point over the past several days. Unclear over what period of time this might have been occurring although the patient has reportedly been mor e confused over the past several days according to the patient's daughter on the phone. On arrival to the ED the patient is able to follow commands, seems to want to respond to my questions but she has an expressive aphasia. I did discuss the case with the patient's daughter, Roxanne, on the phone, she tells me that she is unsure of whether or not the patient actually took any medications. She reportedly had a recent Seroquel prescription and the bottle was now empty. States she was also concerned that there was less Ambien than usual and one of her other prescription bottles. On arrival to the ED the patient is hemodynamically stable but she does have difficulty with her speech. She answers some of my questions appropriately with one-word answers. She does not have any focal deficits. She does seem to have some expressive aphasia. Patient's daughter tells me that she does have a history of overdosing on medications but "not to harm herself". She states "I am not sure why she does this". On arrival to the ED the patient is otherwise hemodynamically stable. ROS: -General: Possible overdose -Neuro: Difficulty with speech/expressive aphasia *10 point review systems was conducted and is otherwise negative unless stated above *Outpatient medications and allergy history reviewed PE: General: Alert, NAD HEENT: Normocephalic, atraumatic, trachea midline Eyes: Extraocular eye movement is intact, no scleral erythema Pulmonary: Clear to auscultation bilaterally, no wheezing Cardio: Regular rate and rhythm GI: Abdomen is soft, nontender : No suprapubic tenderness MSK: No evidence of trauma or malformation of the extremities, no edema Skin: No evidence of rash Neuro: Alert, ambulates extremities spontaneously, symmetrical facial movements are appreciated, apparent expressive aphasia Psychiatric: Cooperative cardiac monitor: - An order was placed for continuous cardiac monitoring - Patient was noted to be in sinus rhythm with rate of 80 EKG: Indication: Possible overdose Rate: 74 Rhythm: Normal sinus rhythm Intervals: QTC 512 ms, otherwise within normal limits ST changes: No ST elevation Time: 2136 CT HEAD: No prior exam for comparison. No ICH, mass effect or edema. No evidence of acute cortical stroke. Periventricular small vessel ischemic change. Mild generalized brain atrophy. Visualized sinuses and mastoid air cells are clear. Radiologist: Mary Lux MD Medical Decision Making: Patient presented to the emergency department after possible overdose, from a neurologic standpoint she does answer some my questions appropriately on arrival with one-word answers although she exhibits a garbled speech expressive aphasia. Given this I did obtain CT imaging of the head that does not show any evidence of an acute process. I would not consider her to be a candidate for any aggressive therapy or TPA given the unclear history, possible overdose, and the fact that the timeline of these events are very unclear. Unclear why the patient might of overdose, case was discussed with poison control, magnesium was repleted in the ED, EKG does show slight QTC prolongation at 512ms. CT imaging of the head does not show any evidence of an acute intracranial pro cess, no evidence of stroke. Lab work is generally reassuring. There is a mild leukocytosis, also hypokalemia which was repleted via IV infusion. While here in the ED the patient had an apparent witnessed seizure, witnessed at the bedside by the bedside RN, had approximately 30 seconds of tonic-clonic type shaking with some twitching of the left side of the face. On my arrival at the bedside following the call from the nurse the patient appears postictal. She is alert and maintaining her airway. Patient was given IV Ativan. He was later transferred to a different room and when the admitting team evaluated her she became very acutely agitated and required restraints as well as another dose of IV Ativan. She did become more calm after this. I again discussed the case with poison control, they recommended supportive care, this agitation could secondarily be caused by a Seroquel overdose. I discussed the above findings with the on-call hospitalist for [facility] [place], Dr. Sánchez, who accepted the patient to a monitored bed for further management of expressive aphasia, possible overdose. Patient was admitted in stable condition. * Diagnosis: Possible Seroquel overdose, expressive aphasia, agitated delirium * Disposition: Admission * CRITICAL CARE TIME: 35 minutes -Time spent at the bedside for agitated delirium requiring sedation and restraints, interpretation of diagnostic studies, discussion with family, discussion with other healthcare providers and arrangement of admission, discussed with Poison Control Center Jose L Nation DO Emergency Medicine Past Med/Surg History Medical History (Updated 08/07/21 @ 03:09 by Jose L Nation DO) Flu-like symptoms Social History (Updated 11/16/18 @ 14:25 by Franny Bruner) Smoking Status: Unknown if ever smoked Preferred Language: Japanese Communication Ability: Effective Visual Impairment: No Limitations Hearing Ability: Normal Feels Safe at Home: Yes Allergies Allergies Allergy/AdvReac Type Severity Reaction Status Date / Time metoclopramide Allergy Intermediate "NEURO Verified 11/16/18 14:34 COMPLICATIONS" ondansetron Allergy Unknown HEART RACES Unverified 11/16/18 14:34 Penicillins Allergy Unknown UNKNOWN Verified 11/16/18 14:34 erythromycin base AdvReac Unknown NAUSEA Verified 11/16/18 14:34 Home Meds Home Medications Medication Instructions Recorded Confirmed amitriptyline 100 mg tablet 100 mg PO HS 11/16/18 11/16/18 aspirin 81 mg tablet,delayed 81 mg PO QAM 11/16/18 11/16/18 release atorvastatin 40 mg tablet 40 mg PO QAM 11/16/18 11/16/18 cyclobenzaprine 10 mg tablet 10 mg PO BID PRN 11/16/18 11/16/18 dicyclomine 20 mg tablet 20 mg PO BID PRN 11/16/18 11/16/18 doxepin 25 mg capsule 25 mg PO HS 11/16/18 11/16/18 [id number] 6.25 2 tab PO UD 11/16/18 11/16/18 mg-15 mg-325 mg capsule (Vicks NyQuil Cold/Flu Liquicap) gabapentin 400 mg capsule 400 mg PO TID 11/16/18 11/16/18 lubiprostone 24 mcg capsule 24 mcg PO BID 11/16/18 11/16/18 metformin 1,000 mg tablet 1,000 mg PO BIDM 11/16/18 11/16/18 naproxen sodium 220 mg tablet 440 mg PO UD 11/16/18 11/16/18 (Aleve) pantoprazole 40 mg tablet,delayed 40 mg PO QAM 11/16/18 11/16/18 release promethazine 25 mg tablet 25 mg PO Q8H PRN 11/16/18 11/16/18 quetiapine 100 mg tablet 100 mg PO BID 11/16/18 11/16/18 quetiapine 300 mg tablet 300 mg PO HS 11/16/18 11/16/18 ranitidine HCl 150 mg tablet 150 mg PO BID 11/16/18 11/16/18 zolpidem 5 mg tablet 5 mg PO HS PRN 11/16/18 11/16/18 Previous Rx's Medication Instructions Recorded promethazine 12.5 mg tablet 12.5 mg PO TID PRN #10 tab 11/16/18 Results & Data (ED) Vital Signs Vital Signs - 24 hr 08/06/21 21:05 08/06/21 21:24 08/06/21 21:27 Temperature 36.6 C Temperature Source Oral Pulse Rate 76 75 Pulse Rate [Finger] Respiratory Rate 17 18 Blood Pressure 141/85 H Blood Pressure [Left Arm] Blood Pressure Mean 103 Blood Pressure Mean [Left Arm] Pulse Oximetry 96 97 Oxygen Delivery Method Room Air Room Air Sepsis Recent Fever Within 48 Hours No Sepsis New/Unexplained Change in Mental Status N/A Sepsis Action Taken by Nursing No Action Required 08/06/21 21:30 08/06/21 21:40 08/06/21 21:50 Temperature Temperature Source Pulse Rate 74 74 76 Pulse Rate [Finger] Respiratory Rate 16 18 18 Blood Pressure Blood Pressure [Left Arm] Blood Pressure Mean Blood Pressure Mean [Left Arm] Pulse Oximetry 98 98 98 Oxygen Delivery Method Sepsis Recent Fever Within 48 Hours Sepsis New/Unexplained Change in Mental Status Sepsis Action Taken by Nursing 08/06/21 22:00 08/06/21 22:11 08/06/21 22:20 Temperature Temperature Source Pulse Rate 78 79 Pulse Rate [Finger] Respiratory Rate 18 18 Blood Pressure 144/80 H Blood Pressure [Left Arm] Blood Pressure Mean 101 Blood Pressure Mean [Left Arm] Pulse Oximetry 99 96 Oxygen Delivery Method Sepsis Recent Fever Within 48 Hours Sepsis New/Unexplained Change in Mental Status Sepsis Action Taken by Nursing 08/06/21 22:30 08/06/21 22:40 08/06/21 22:47 Temperature Temperature Source Pulse Rate 82 80 Pulse Rate [Finger] 78 Respiratory Rate 14 16 20 Blood Pressure Blood Pressure [Left Arm] 144/80 H Blood Pressure Mean Blood Pressure Mean [Left Arm] 101 Pulse Oximetry 96 97 98 Oxygen Delivery Method Sepsis Recent Fever Within 48 Hours Sepsis New/Unexplained Change in Mental Status Sepsis Action Taken by Nursing 08/06/21 22:50 08/06/21 23:00 08/06/21 23:10 Temperature Temperature Source Pulse Rate 78 78 Pulse Rate [Finger] Respiratory Rate 13 22 19 Blood Pressure Blood Pressure [Left Arm] Blood Pressure Mean Blood Pressure Mean [Left Arm] Pulse Oximetry 98 99 Oxygen Delivery Method Sepsis Recent Fever Within 48 Hours Sepsis New/Unexplained Change in Mental Status Sepsis Action Taken by Nursing 08/06/21 23:20 08/06/21 23:30 08/06/21 23:40 Temperature Temperature Source Pulse Rate 77 77 Pulse Rate [Finger] Respiratory Rate 17 19 22 Blood Pressure Blood Pressure [Left Arm] Blood Pressure Mean Blood Pressure Mean [Left Arm] Pulse Oximetry 99 97 Oxygen Delivery Method Sepsis Recent Fever Within 48 Hours Sepsis New/Unexplained Change in Mental Status Sepsis Action Taken by Nursing 08/06/21 23:56 08/07/21 00:00 08/07/21 00:10 Temperature Temperature Source Pulse Rate 81 70 80 Pulse Rate [Finger] Respiratory Rate 16 13 14 Blood Pressure Blood Pressure [Left Arm] Blood Pressure Mean Blood Pressure Mean [Left Arm] Pulse Oximetry 98 99 Oxygen Delivery Method Sepsis Recent Fever Within 48 Hours Sepsis New/Unexplained Change in Mental Status Sepsis Action Taken by Nursing 08/07/21 00:20 08/07/21 00:30 08/07/21 00:40 Temperature Temperature Source Pulse Rate 80 77 Pulse Rate [Finger] Respiratory Rate 20 19 18 Blood Pressure Blood Pressure [Left Arm] Blood Pressure Mean Blood Pressure Mean [Left Arm] Pulse Oximetry 99 99 99 Oxygen Delivery Method Sepsis Recent Fever Within 48 Hours Sepsis New/Unexplained Change in Mental Status Sepsis Action Taken by Nursing 08/07/21 00:50 08/07/21 01:00 08/07/21 01:10 Temperature Temperature Source Pulse Rate 75 80 81 Pulse Rate [Finger] Respiratory Rate 17 23 16 Blood Pressure 142/93 H Blood Pressure [Left Arm] Blood Pressure Mean 109 Blood Pressure Mean [Left Arm] Pulse Oximetry 99 97 Oxygen Delivery Method Sepsis Recent Fever Within 48 Hours Sepsis New/Unexplained Change in Mental Status Sepsis Action Taken by Nursing 08/07/21 01:20 08/07/21 01:35 08/07/21 01:40 Temperature Temperature Source Pulse Rate 78 78 86 Pulse Rate [Finger] Respiratory Rate 16 18 19 Blood Pressure Blood Pressure [Left Arm] Blood Pressure Mean Blood Pressure Mean [Left Arm] Pulse Oximetry 98 98 97 Oxygen Delivery Method Sepsis Recent Fever Within 48 Hours Sepsis New/Unexplained Change in Mental Status Sepsis Action Taken by Nursing 08/07/21 01:50 08/07/21 02:00 08/07/21 02:10 Temperature Temperature Source Pulse Rate 77 78 77 Pulse Rate [Finger] Respiratory Rate 15 20 17 Blood Pressure Blood Pressure [Left Arm] Blood Pressure Mean Blood Pressure Mean [Left Arm] Pulse Oximetry 99 99 99 Oxygen Delivery Method Sepsis Recent Fever Within 48 Hours Sepsis New/Unexplained Change in Mental Status Sepsis Action Taken by Nursing 08/07/21 02:20 08/07/21 02:30 08/07/21 02:40 Temperature Temperature Source Pulse Rate 76 77 78 Pulse Rate [Finger] Respiratory Rate 17 15 20 Blood Pressure 140/83 Blood Pressure [Left Arm] Blood Pressure Mean 102 Blood Pressure Mean [Left Arm] Pulse Oximetry 99 98 100 Oxygen Delivery Method Sepsis Recent Fever Within 48 Hours Sepsis New/Unexplained Change in Mental Status Sepsis Action Taken by Nursing 08/07/21 02:50 Temperature Temperature Source Pulse Rate 77 Pulse Rate [Finger] Respiratory Rate 15 Blood Pressure Blood Pressure [Left Arm] Blood Pressure Mean Blood Pressure Mean [Left Arm] Pulse Oximetry 98 Oxygen Delivery Method Sepsis Recent Fever Within 48 Hours Sepsis New/Unexplained Change in Mental Status Sepsis Action Taken by Nursing Laboratory Data Result diagrams: 08/07/21 07:01 08/07/21 07:01 Lab Results 08/06/21 08/06/21 08/06/21 Range/Units 21:28 21:28 21:28 WBC 12.37 H (4.8-10.8) K/uL RBC 3.81 L (4.2-5.4) M/uL Hgb 11.9 L (12.0-16.0) g/dL Hct 36.2 L (37-47) % MCV 95.0 (80-100) fL MCH 31.2 (25-34) pg MCHC 32.9 (32-36) g/dL RDW Std Deviation 56.7 H (36.4-46.3) fL RDW Coeff of [place] 16.3 H (11.5-14.5) % Plt Count 319 (130-400) K/uL MPV 9.4 (7.4-10.4) fL Immature Gran % (Auto) 0.3 % Neut % (Auto) 80.1 % Lymph % (Auto) 13.7 % [place] % (Auto) 5.4 % Eos % (Auto) 0.3 % Baso % (Auto) 0.2 % Neut # (Auto) 9.89 H (1.4-6.5) K/uL Lymph # (Auto) 1.70 (1.2-3.4) K/uL [place] # (Auto) 0.67 H (0.11-0.59) K/uL Eos # (Auto) 0.04 (0-0.5) K/uL Baso # (Auto) 0.03 (0-0.2) K/uL Immature Gran # (Auto) 0.04 H (0.00-0.02) K/uL Sodium 144 (136-145) mmol/L Potassium 3.2 L (3.5-5.1) mmol/L Chloride 115 H (98-107) mmol/L Carbon Dioxide 19 L (21-32) mmol/L Anion Gap 10.0 (3-11) BUN 8 (7-18) mg/dl Creatinine 0.98 (0.6-1.2) mg/dl Est Cr Clr Drug Dosing 59.3 ml/min Est GFR ( Amer) 74.2 ml/min Est GFR (Non-Af Amer) 64.0 ml/min BUN/Creatinine Ratio 8.1 L (10-20) Glucose 150 H (70-99) mg/dl Calcium 8.7 (8.5-10.1) mg/dl Magnesium 1.7 L (1.8-2.4) mg/dl Total Bilirubin 0.2 (0.2-1) mg/dl AST 10 L (15-37) U/L ALT 16 (12-78) U/L Alkaline Phosphatase 112 (45-117) U/L Total Protein 6.8 (6.4-8.2) gm/dl Albumin 3.1 L (3.4-5.0) gm/dl Globulin 3.7 (2.5-4.0) gm/dl Albumin/Globulin Ratio 0.8 L (0.9-2) TSH 1.400 (0.300-4.500) uIu/ml Salicylates 3.9 (2.8-20) mg/dl Acetaminophen < 2 L (10-30) ug/ml Ethyl Alcohol mg/dL (0-3) mg/dl 08/06/21 Range/Units 23:08 WBC (4.8-10.8) K/uL RBC (4.2-5.4) M/uL Hgb (12.0-16.0) g/dL Hct (37-47) % MCV (80-100) fL MCH (25-34) pg MCHC (32-36) g/dL RDW Std Deviation (36.4-46.3) fL RDW Coeff of [place] (11.5-14.5) % Plt Count (130-400) K/uL MPV (7.4-10.4) fL Immature Gran % (Auto) % Neut % (Auto) % Lymph % (Auto) % [place] % (Auto) % Eos % (Auto) % Baso % (Auto) % Neut # (Auto) (1.4-6.5) K/uL Lymph # (Auto) (1.2-3.4) K/uL [place] # (Auto) (0.11-0.59) K/uL Eos # (Auto) (0-0.5) K/uL Baso # (Auto) (0-0.2) K/uL Immature Gran # (Auto) (0.00-0.02) K/uL Sodium (136-145) mmol/L Potassium (3.5-5.1) mmol/L Chloride (98-107) mmol/L Carbon Dioxide (21-32) mmol/L Anion Gap (3-11) BUN (7-18) mg/dl Creatinine (0.6-1.2) mg/dl Est Cr Clr Drug Dosing ml/min Est GFR ( Amer) ml/min Est GFR (Non-Af Amer) ml/min BUN/Creatinine Ratio (10-20) Glucose (70-99) mg/dl Calcium (8.5-10.1) mg/dl Magnesium (1.8-2.4) mg/dl Total Bilirubin (0.2-1) mg/dl AST (15-37) U/L ALT (12-78) U/L Alkaline Phosphatase (45-117) U/L Total Protein (6.4-8.2) gm/dl Albumin (3.4-5.0) gm/dl Globulin (2.5-4.0) gm/dl Albumin/Globulin Ratio (0.9-2) TSH (0.300-4.500) uIu/ml Salicylates (2.8-20) mg/dl Acetaminophen (10-30) ug/ml Ethyl Alcohol mg/dL < 3.0 (0-3) mg/dl Administered Medications Discontinued Medications Magnesium Sulfate/Dextrose (Magnesium Sulfate / D5w) 1 gm in 100 mls @ 200 mls/hr IV Q30M AMELIA Stop: 08/07/21 01:14 Last Infusion: 08/07/21 01:40 Dose: 200 mls/hr Documented by: [id number] Admin: 08/07/21 01:00 Dose: 200 mls/hr Documented by: [id number] Infusion: 08/07/21 01:00 Dose: 200 mls/hr Documented by: [id number] Admin: 08/07/21 00:23 Dose: 200 mls/hr Documented by: [id number] Lorazepam (Ativan) 1 mg in 2 mls @ 2 mls/min IV NOW STA Stop: 08/07/21 01:12 Last Admin: 08/07/21 01:30 Dose: Not Given Documented by: [id number] Levetiracetam 1,000 mg/ Sodium (Chloride) 110 mls @ 440 mls/hr IV NOW STA Stop: 08/07/21 01:26 Last Infusion: 08/07/21 02:13 Dose: 440 mls/hr Documented by: [id number] Admin: 08/07/21 01:49 Dose: 440 mls/hr Documented by: [id number] Potassium Chloride 40 meq/ (Sodium Chloride) 1,020 mls @ 100 mls/hr IV .[id number] AMELIA Stop: 09/06/21 01:29 Last Admin: 08/07/21 02:20 Dose: 100 mls/hr Documented by: [id number] Magnesium Sulfate/Dextrose (Magnesium Sulfate / D5w) 1 gm in 100 mls @ 50 mls/hr IV ONE ONE Stop: 08/07/21 07:38 Last Admin: 08/07/21 06:59 Dose: Not Given Documented by: [id number] Lorazepam (Lorazepam 2 Mg/4 Ml Vial) Confirm Administered Dose 2 mg .ROUTE .STK- MED ONE Stop: 08/07/21 01:08 Last Increment: 08/07/21 01:09 Dose: 1 mg Documented by: [id number] Lorazepam (Lorazepam 2 Mg/4 Ml Vial) Confirm Administered Dose 2 mg .ROUTE .STK- MED ONE Stop: 08/07/21 04:59 Last Increment: 08/07/21 05:01 Dose: 1 mg Documented by: [id number] Discharge Plan Visit Data Chief Complaint: Overdose (Intentional) Stated Complaint: Overdose ED Provider: Jose L Nation Discharge Problem: Seizure, Overdose Discharge Problem: Overdose Qualifiers: Encounter type: initial encounter Injury intent: undetermined intent Qualified Code(s): T50.904A - Poisoning by unspecified drugs, medicaments and biological substances, undetermined, initial encounter
[2021-08-06 23:56] LABS: Magnesium 1.7 mg/dl (1.8-2.4)
[2021-08-07] MEDS: MAGNESIUM SULFATE / D5W 1 GM/100 ML BAG IV SCH ×2 (00:23→01:00)
[2021-08-07] MEDS ORDERED: LORazepam 2 MG/4 ML VIAL ONE ×2 (01:07→04:58)
[2021-08-07] MEDS ORDERED: LORazepam 1 MG/2 ML VIAL IV STA (01:11)
[2021-08-07] MEDS ORDERED: levETIRAcetam 1,000 MG in 0.9 % SODIUM CHLORIDE 100 ML IV STA (01:12)
[2021-08-07] MEDS ORDERED: POTASSIUM CHLORIDE 40 MEQ in SODIUM CHLORIDE 0.9% 1000ML 1,000 ML IV SCH (01:30)
[2021-08-07] MEDS ORDERED: MAGNESIUM SULFATE / D5W 1 GM/100 ML BAG IV ONE ×2 (05:39→10:05)
[2021-08-07] MEDS ORDERED: LORazepam 1.5 MG/3 ML VIAL IV PRN (05:47)
--- NOTE | 2021-08-07 05:47 | History and Physical Report ---
DATE OF ADMISSION: 08/07/2021. CHIEF COMPLAINT: Intentional drug overdose. HISTORY OF PRESENT ILLNESS: A 56-year-old female with past medical history significant for type 2 diabetes, hyperlipidemia, history of QT prolongation, history of GERD, history of slow transit constipation, nonalcoholic fatty liver disease, irritable bowel syndrome with constipation, history of TMJ, history of moderate recurrent depression, history of seizure, was brought in because of drug overdose. The patient was found acting strange and falling today at home. Patient has history of drug overdose as per daughter and when checked they found empty Seroquel bottle and also amitriptyline bottle has only few tablets, both tablets were recently filled . As per the ER, she might have taken 30 Seroquel 300mg tablets.. In the ER, she was having expressive aphasia. Imaging studies were unremarkable. Poison control was contacted and recommended supportive care. She has episode of emesis and 30 seconds of seizure in the ER and she was given 1 mg of IV Ativan and also Keppra. Currently, postictal or sedated from the Ativan and she is sleeping, drowsy, unarousable.When woken can tell her name, but she her speech is garbled. Hemodynamically stable. EKG showed QTc of 512, but she also has a history of QT prolongation. Poison control thinks the seizure could be from the Seroquel as per the ER. Could not get much history from the patient currently. ALLERGIES: REGLAN, ZOFRAN, PENICILLIN, ERYTHROMYCIN BASE. PAST MEDICAL HISTORY: As mentioned above. PAST SURGICAL HISTORY: Colonoscopy, breast biopsy, EGDs, I and D for right axillary abscess, cataract surgery, ligation of oviducts, total abdominal hysterectomy with removal of tubes. MEDICATIONS: As per [facility], the patient is on aspirin 81 mg p.o. daily, famotidine 40 mg p.o. daily, metformin 1000 mg b.i.d., promethazine 25 mg t.i.d. p.r.n., Flomax 0.4 mg p.o. daily, atorvastatin 40 mg p.o. daily, dicyclomine 20 mg b.i.d. p.r.n., Flexeril 10 mg b.i.d. p.r.n., Senokot p.r.n., Protonix 40 mg p.o. daily, Linzess 145 mcg p.o. daily, gabapentin 400 mg p.o. t.i.d., MiraLax 17 g p.o. p.r.n., vitamin B12 1000 mcg p.o. daily, Seroquel 100 mg 1 tablet in a.m. and one tablet in p.m., amitriptyline 100 mg p.o. at bedtime, doxepin 25 mg p.o. at bedtime, vitamin D 2000 units p.o. daily. FAMILY HISTORY: Significant for mother had breast cancer, colon cancer. Father had eye problems and [place]. Aunt has colon cancer. SOCIAL HISTORY: , no smoking, no alcohol, no drug use. REVIEW OF SYSTEMS: Currently unavailable as the patient is somewhat drowsy. PHYSICAL EXAMINATION: GENERAL: The patient is drowsy. Speech is garbled. VITAL SIGNS: Temperature 36.6, pulse 77, respiratory rate 15, blood pressure 140/83, oxygen 98% on room air. HEENT: Atraumatic. No facial droop. NECK: No JVD, no neck masses. CARDIOVASCULAR: S1 and S2 heard. Regular rate and rhythm. No murmur, no gallop. RESPIRATORY SYSTEM: Normal AP diameter. No accessory muscle use. No wheezing, no crackles. ABDOMEN: Soft, bowel sounds present, nontender, no distention. CENTRAL NERVOUS SYSTEM: Currently drowsy. Whenever awaken could tell her name. Speech is garbled. No facial droop. Moves extremities. EXTREMITIES: No edema, no erythema. LABORATORY DATA: WBC 12.3, hemoglobin 11.9, hematocrit 36.2, platelets 319. Sodium 144, potassium 3.2, chloride 115, CO2 19, BUN 8, creatinine 0.9, serum glucose 150, calcium 8.7, magnesium 1.7, total bilirubin 0.2, AST 10, ALT 16, alkaline phosphatase 112. TSH 1.4. Salicylate 3.9, acetaminophen less than 2, ethyl alcohol less than 3. SARS-CoV-2 PCR negative. IMAGING DATA: CT of the head, preliminary report, no acute findings. EKG: Normal sinus rhythm at a rate of 74. Nonspecific T-wave abnormality, prolonged QTc of 512. ASSESSMENT AND PLAN: This is a 56-year-old female presents with intentional drug overdose. 1. Intentional drug overdose. Seroquel empty bottle found at home and also amitriptyline ingestion.Found confused today.. Speech is somewhat garbled in the ER. CT of the head is okay and she had episode of seizures in the ER. received a dose of keppra and n Ativan. Currently drowsy. Poison control recommended supportive care. Seizure could be from Seroquel overdose.. We will admit to the tele floor. We will keep her n.p.o., IV fluids.IV ativan prn for seizures or agitation We will get an EEG and consult Neurology. If speech is not improving, may need MRI scan. 2. Drug overdose, intentional. Psychiatric consult when stable, one-on-one. 3. History of diabetes. Hold home metformin, placed on insulin sliding scale. 4. Depression: Currently holding all home medications, once stable management as per Psychiatry. 5. Hyperlipidemia: On statin. 6. Gastroesophageal reflux disease: On Protonix. Currently, holding all oral medications. 7. History of prolonged QTc as per EPIC. The patient is on Seroquel at home, Presents with Seroquel overdose. Holding Seroquel and qt prolonging drugs. Follow the repeat ekg. 8. History of irritable bowel syndrome, constipation. Currently, holding her home medications and restart when the patient is stable. 9.. Deep venous thrombosis prophylaxis: Sequential compression devices. DISPOSITION: Closely monitor in tele floor. Level 1 full code. Job ID: [id number] MTDD
[2021-08-07] MEDS ORDERED: LORazepam 1 MG/2 ML VIAL IV PRN (05:48)
[2021-08-07 06:05] LABS: Appearance Urine Clear (Clear); Bacteria Urine Automated Negative (Negative); Bilirubin Urine Negative (Negative); Blood Urine Negative (Negative); Color Urine Yellow; Glucose Urine UA Negative (Negative); Ketones Urine 1+ (Negative); Leukocyte Esterase Urine Negative (Negative); Nitrite Urine Negative (Negative); Protein Urine Trace (Negative); RBC Urine Automated 0-4 /hpf (0-4); Urobilinogen Urine Negative (Negative)
[2021-08-07 06:25] LABS: Amphetamines+Metham, Urine Neg (Neg); Barbiturates, Urine Neg (Neg); Benzodiazepine, Urine Neg (Neg); Cocaine, Urine Neg (Neg); MDMA (Ecstacy), Urine Neg (Neg); Methadone, Urine Neg (Neg); Opiate, Urine Pos (Neg); Phencyclidine, Urine Neg (Neg)
[2021-08-07] MEDS ORDERED: ACETAMINOPHEN 325 MG TAB PO PRN (06:42)
[2021-08-07] MEDS ORDERED: NITROGLYCERIN SL 0.4 MG/TAB TAB SL PRN (06:42)
[2021-08-07 07:09] LABS: Basophils # (auto) 0.03 K/uL (0-0.2); Basophils % (auto) 0.2 %; Eosinophils # (auto) 0.02 K/uL (0-0.5); Eosinophils % (auto) 0.1 %; Hemoglobin 11.9 g/dL (12.0-16.0); Immature Granulocytes # (auto) 0.04 K/uL (0.00-0.02); Immature Granulocytes % (auto) 0.3 %; Lymphocytes # (auto) 2.73 K/uL (1.2-3.4); Lymphocytes % (auto) 19.6 %; Mean Corpuscular Hemoglobin 30.7 pg (25-34); Mean Corpuscular Hgb Conc 32.2 g/dL (32-36); Mean Corpuscular Volume 95.4 fL (80-100); Mean Platelet Volume 9.2 fL (7.4-10.4); Monocytes # (auto) 1.15 K/uL (0.11-0.59); Monocytes % (auto) 8.3 %; Neutrophils # (auto) 9.94 K/uL (1.4-6.5); Neutrophils % (auto) 71.5 %; Platelet Count 340 K/uL (130-400); RDW Coefficient of Variation 16.3 % (11.5-14.5); RDW Standard Deviation 56.7 fL (36.4-46.3); Red Blood Count 3.88 M/uL (4.2-5.4); White Blood Count 13.91 K/uL (4.8-10.8)
[2021-08-07 07:27] LABS: Calcium 8.9 mg/dl (8.5-10.1); Creatinine Clr Calc Pharmacy 56.4 ml/min; Est GFR (African American) 69.9 ml/min; Est GFR (Non-African American) 60.3 ml/min; Magnesium 2.4 mg/dl (1.8-2.4); Potassium 2.9 mmol/L (3.5-5.1)
--- NOTE | 2021-08-07 08:05 | Electrocardiogram Report ---
Test Reason : Blood Pressure : / mmHG Vent. Rate : 074 BPM Atrial Rate : 074 BPM P-R Int : 172 ms QRS Dur : 092 ms QT Int : 462 ms P-R-T Axes : 051 047 057 degrees QTc Int : 512 ms Normal sinus rhythm Diffuse Minor Nonspecific T wave abnormality Prolonged QT Abnormal ECG When compared with ECG of 29-AUG-2017 16:06, Premature ventricular complexes are no longer Present Questionable change in QRS axis Nonspecific T wave abnormality now evident in Anterior leads Confirmed by Hugo Hoff ([id number]) on 08/07/2021 8:04:35 AM Referred By: REFERRED SELF Confirmed By:Hugo Hoff
--- NOTE | 2021-08-07 08:15 | Electrocardiogram Report ---
Test Reason : Blood Pressure : / mmHG Vent. Rate : 080 BPM Atrial Rate : 080 BPM P-R Int : 164 ms QRS Dur : 086 ms QT Int : 554 ms P-R-T Axes : 068 049 072 degrees QTc Int : 638 ms Normal sinus rhythm Diffuse Nonspecific T wave abnormality Abnormal ECG When compared with ECG of 06-AUG-2021 21:37, No significant change Confirmed by Hugo Hoff ([id number]) on 08/07/2021 8:15:35 AM Referred By: REFERRED SELF Confirmed By:Hugo Hoff
--- NOTE | 2021-08-07 08:18 | CT Scan Report ---
CT head/brain wo con CLINICAL HISTORY: abnormal speech Technique: Contiguous axial CT images of the head were acquired from the base of the skull to the rufino anjum without intravenous contrast administration. Images were viewed in brain, subdural and bone [facility]. Automated dose lowering techniques and/or adjustment according to patient size were utilized for this exam. Comparison: Comparison is made to CT head 02/08/2007 Findings: The ventricles, basal cisterns, and cerebral sulci are normal. There is no acute intracranial hemorrh age or evidence of acute territorial infarction. Neither mass effect, shift of the midline structures , nor abnormal extra-axial fluid collections are shown. Imaged portions of the paranasal sinuses and mastoid air cells are clear. The orbits appear normal. There are no acute fractures of the calvaria or scalp swelling. Impression: No acute intracranial hemorrhage, no evidence of acute territorial infarction or other acute intracra nial disease process. ACT 112: Negative or not required by law. Electronically signed by: Clyde Bright M.D. 08/07/2021 8:17 AM
[2021-08-07] MEDS ORDERED: POTASSIUM CHLORIDE 20 MEQ/15 ML UDC PO STA (08:45)
[2021-08-07] MEDS ORDERED: ATORVASTATIN 40 MG TAB PO SCH (09:00)
[2021-08-07] MEDS ORDERED: ASPIRIN 81 MG ECTAB PO SCH (09:00)
[2021-08-07] MEDS: POTASSIUM CHLORIDE / WTR 10 MEQ/100 ML PLCT IV SCH ×6 (09:57→16:02)
[2021-08-07] MEDS: NSS + 20MEQ KCL 20 MEQ/1,000 ML BAG IV SCH ×2 (10:08→19:16)
[2021-08-07 11:33] LABS: Alanine Aminotransferase 17 U/L (12-78); Albumin Level 2.8 gm/dl (3.4-5.0); Aspartate Aminotransferase 14 U/L (15-37); BUN Creatinine Ratio 9.3 (10-20); Bilirubin Direct < 0.1 mg/dl (0-0.2); Blood Urea Nitrogen 8 mg/dl (7-18); Calcium 8.5 mg/dl (8.5-10.1); Carbon Dioxide 16 mmol/L (21-32); Chloride 117 mmol/L (98-107); Creatinine Clr Calc Pharmacy 69.2 ml/min; Est GFR (African American) 89.4 ml/min; Est GFR (Non-African American) 77.2 ml/min; Glucose 80 mg/dl (70-99); Potassium 3.6 mmol/L (3.5-5.1); Sodium 142 mmol/L (136-145)
[2021-08-07 11:41] LABS: Alkaline Phosphatase 110 U/L (45-117); Bilirubin,Total 0.3 mg/dl (0.2-1); Creatine Kinase 300 U/L (26-192); Total Protein 6.5 gm/dl (6.4-8.2)
[2021-08-07] MEDS: INSULIN ASPART 100 UNITS/ML 3 ML PEN SC SCH ×3 (11:44→20:43)
--- NOTE | 2021-08-07 11:44 | Neurology Consultation ---
Date of Consultation August 07, 2021 Assessment & Plan (1) Seizure: 1. MRI brain with seizure protocol- when less agitated and more cooperative 2. EEG brain - r/o seizure focus 3. would not hold gabapentin if she was taking 400 mg TID - will cause withdrawal symptoms 4. continue Keppra 500 mg twice daily for now 5. psychiatry for medication management 6. no driving for 6 months from last seizure date, no heights, no bathing or swimming alone (2) Overdose: 1. unclear what she took but is clearly confused Supervising Physician Co-Signing Physician Notes I have seen and discussed above patient with Dr Madhavi Zayas, neurology. pt seen and examined, hx reviewed and includes prior sz. CT nonfocal. labs notable for pos tox screen THC and opiates. Presumed OD with Seroquel and amitriptyline. Pt has no complaints. there is a paucity of spontaneously speech. Pt is perservative, mildly sleepy Repeatedly says Quietapine within her sentences. Unable to hx of present illness or prior illness. Naming, reps, commands normal. Pupils post surgical, nml motility, isaac, facial symm. No dysarthria. Motor 5/5. no tremor, drift or myoclonus noted. symm reflexes, downgoing toes. Imp Suspected OD of seroquel and amitriptyline. Brief witnessed sz, hx of prior sz.Pt mildly encephalopathic. Agree with Max at present. needs mri brain, EEG. Will need to explore prior hx of sz when pt more cooperative. I agree there is a dysphasic quality to her speech. exam is otherwise nonfocal. Supportive care per Poison Control.Will follow with you. AVA Zayas MD History of Present Illness Reason for Consultation: seizure garbled speech overdose Requesting Physician: Sandor Bagley MD Attending Physician: Sandor Bagley MD History of Present Illness Lorrie is a 56 year old female with PMH- DM2, HLD, QT prolongation, history of GERD, slow transit constipation, nonalcoholic fatty liver disease, IBS with constipation, TMJ, depression, seizure, was brought to [facility] ED 08/07/2021 because of drug overdose. She was found acting strange and falling today at home.She has history of drug overdose and daughter found empty Seroquel bottle and also amitriptyline bottle has only few tablets, both tablets were recently filled . She might have taken 30 Seroquel 300mg tablets.. She was having expressive aphasia. Imaging studies were unremarkable. Poison control was contacted and recommended supportive care. She has episode of emesis and 30 seconds of seizure in the ER and she was given 1 mg of IV Ativan and also Keppra.She was then, postictal or sedated from the Ativan and she is sleeping, drowsy, unarousable.When woken can tell her name, but she her speech is garbled. Poison control thinks the seizure could be from the Seroquel as per the ER. . Currently she is awake and moaning. when she tries to answer some questions her speech is garbled. She hurts all over and points to multiple bruises on her arms and legs. denies CP, SOB ,abdominal pain, N, V. Allergies Allergy/AdvReac Type Severity Reaction Status Date / Time metoclopramide Allergy Intermediate "NEURO Verified 11/16/18 14:34 COMPLICATIONS" ondansetron Allergy Unknown HEART RACES Unverified 11/16/18 14:34 Penicillins Allergy Unknown UNKNOWN Verified 11/16/18 14:34 erythromycin base AdvReac Unknown NAUSEA Verified 11/16/18 14:34 Home Medications Medication Instructions Recorded Confirmed Type amitriptyline 100 mg tablet 100 mg PO HS 11/16/18 11/16/18 History aspirin 81 mg tablet,delayed 81 mg PO QAM 11/16/18 11/16/18 History release atorvastatin 40 mg tablet 40 mg PO QAM 11/16/18 11/16/18 History cyclobenzaprine 10 mg tablet 10 mg PO BID PRN 11/16/18 11/16/18 History dicyclomine 20 mg tablet 20 mg PO BID PRN 11/16/18 11/16/18 History doxepin 25 mg capsule 25 mg PO HS 11/16/18 11/16/18 History [id number] 6.25 2 tab PO UD 11/16/18 11/16/18 History mg-15 mg-325 mg capsule (Vicks NyQuil Cold/Flu Liquicap) gabapentin 400 mg capsule 400 mg PO TID 11/16/18 11/16/18 History lubiprostone 24 mcg capsule 24 mcg PO BID 11/16/18 11/16/18 History metformin 1,000 mg tablet 1,000 mg PO BIDM 11/16/18 11/16/18 History naproxen sodium 220 mg tablet 440 mg PO UD 11/16/18 11/16/18 History (Aleve) pantoprazole 40 mg tablet,delayed 40 mg PO QAM 11/16/18 11/16/18 History release promethazine 12.5 mg tablet 12.5 mg PO TID PRN #10 tab 11/16/18 Rx promethazine 25 mg tablet 25 mg PO Q8H PRN 11/16/18 11/16/18 History quetiapine 100 mg tablet 100 mg PO BID 11/16/18 11/16/18 History quetiapine 300 mg tablet 300 mg PO HS 11/16/18 11/16/18 History ranitidine HCl 150 mg tablet 150 mg PO BID 11/16/18 11/16/18 History zolpidem 5 mg tablet 5 mg PO HS PRN 11/16/18 11/16/18 History Patient History Medical History Flu-like symptoms Social History Smoking Status: Never smoker Hx Substance Use: Yes Preferred Language: Angolan Communication Ability: Unable Visual Impairment: No Limitations Hearing Ability: Normal Sound Effects Manager Required: No Beliefs That Will Affect Care: None Current Living Situation: Spouse Feels Safe at Home: Yes Assistive Devices: None Review of Systems Review of Systems: All systems reviewed & are unremarkable except as noted in HPI & below Physical Exam Physical Exam: Physical Exam: Constitutional appearance nourished Ears, Nose, Mouth and Throat: mucous membranes moist, no injection and skin normal, eyes normal Cardiovascular: normal S-1 and S-2 and regular rate and rhythm Respiratory: course breath sounds Musculoskeletal: no peripheral edema and good distal pulses Skin: no stigmata of neurocutaneous disease noted and normal and intact Eyes: extraocular muscles intact (EOMI) and pupils equal, round and reactive to light (PERRL), dilated equally bilaterally NEUROLOGIC EXAMINATION: Mental status: Alert and interactive Oriented to hospital but not to date year, president Oriented to person Speech clear at times then garbled with complex ideas using wrong words Cranial Nerves smile eye brow raise symmetric Reflexes: Deep tendon reflexes were symmetrical and decreased throughout, down going toes Sensory: intact to light touch and vibration Coordination: finger to nose Gait/Stance: Posture lying in bed Strength: biceps triceps hand machine tack puller 5/5 bilaterally hip flex plantar flex ext 5/5 Results & Data ([facility]) Vital Signs (Past 12 Hours) Vital Signs Pulse Resp BP Pulse Ox 08/07/21 10:03 77 18 99 08/07/21 02:50 77 15 98 08/07/21 02:40 78 20 100 08/07/21 02:30 77 15 140/83 98 08/07/21 02:20 76 17 99 08/07/21 02:10 77 17 99 08/07/21 02:00 78 20 99 08/07/21 01:50 77 15 99 08/07/21 01:40 86 19 97 08/07/21 01:35 78 18 98 08/07/21 01:20 78 16 98 08/07/21 01:10 81 16 97 08/07/21 01:00 80 23 142/93 H 08/07/21 00:50 75 17 99 08/07/21 00:40 77 18 99 08/07/21 00:30 80 19 99 08/07/21 00:20 20 99 08/07/21 00:10 80 14 99 08/07/21 00:00 70 13 98 08/06/21 23:56 81 16 08/06/21 23:40 22 Laboratory Results Abnormal lab results 08/06/21 08/06/21 08/06/21 Range/Units 21:28 21:28 21:28 WBC 12.37 H (4.8-10.8) K/uL RBC 3.81 L (4.2-5.4) M/uL Hgb 11.9 L (12.0-16.0) g/dL Hct 36.2 L (37-47) % RDW Std Deviation 56.7 H (36.4-46.3) fL RDW Coeff of Austen 16.3 H (11.5-14.5) % Neut # (Auto) 9.89 H (1.4-6.5) K/uL [place] # (Auto) 0.67 H (0.11-0.59) K/uL Immature Gran # (Auto) 0.04 H (0.00-0.02) K/uL Potassium 3.2 L (3.5-5.1) mmol/L Chloride 115 H (98-107) mmol/L Carbon Dioxide 19 L (21-32) mmol/L BUN/Creatinine Ratio 8.1 L (10-20) Glucose 150 H (70-99) mg/dl Magnesium 1.7 L (1.8-2.4) mg/dl AST 10 L (15-37) U/L Total Creatine Kinase (26-192) U/L Albumin 3.1 L (3.4-5.0) gm/dl Albumin/Globulin Ratio 0.8 L (0.9-2) Urine Protein (Negative) Urine Ketones (Negative) U Epithel Cells (Auto) (0-5) /lpf Urine Opiates Screen (Neg) Acetaminophen < 2 L (10-30) ug/ml U Marijuana (THC) Screen (Neg) 08/07/21 08/07/21 08/07/21 Range/Units 05:10 05:10 07:01 WBC 13.91 H (4.8-10.8) K/uL RBC 3.88 L (4.2-5.4) M/uL Hgb 11.9 L (12.0-16.0) g/dL Hct (37-47) % RDW Std Deviation 56.7 H (36.4-46.3) fL RDW Coeff of Austen 16.3 H (11.5-14.5) % Neut # (Auto) 9.94 H (1.4-6.5) K/uL [place] # (Auto) 1.15 H (0.11-0.59) K/uL Immature Gran # (Auto) 0.04 H (0.00-0.02) K/uL Potassium (3.5-5.1) mmol/L Chloride (98-107) mmol/L Carbon Dioxide (21-32) mmol/L BUN/Creatinine Ratio (10-20) Glucose (70-99) mg/dl Magnesium (1.8-2.4) mg/dl AST (15-37) U/L Total Creatine Kinase (26-192) U/L Albumin (3.4-5.0) gm/dl Albumin/Globulin Ratio (0.9-2) Urine Protein Trace H (Negative) Urine Ketones 1+ H (Negative) U Epithel Cells (Auto) 10-20 H (0-5) /lpf Urine Opiates Screen Pos H (Neg) Acetaminophen (10-30) ug/ml U Marijuana (THC) Screen Pos H (Neg) 08/07/21 08/07/21 Range/Units 07:01 10:59 WBC (4.8-10.8) K/uL RBC (4.2-5.4) M/uL Hgb (12.0-16.0) g/dL Hct (37-47) % RDW Std Deviation (36.4-46.3) fL RDW Coeff of Austen (11.5-14.5) % Neut # (Auto) (1.4-6.5) K/uL [place] # (Auto) (0.11-0.59) K/uL Immature Gran # (Auto) (0.00-0.02) K/uL Potassium 2.9 L (3.5-5.1) mmol/L Chloride 115 H 117 H (98-107) mmol/L Carbon Dioxide 19 L 16 L (21-32) mmol/L BUN/Creatinine Ratio 8.0 L 9.3 L (10-20) Glucose (70-99) mg/dl Magnesium (1.8-2.4) mg/dl AST 14 L (15-37) U/L Total Creatine Kinase 300 H (26-192) U/L Albumin 2.8 L (3.4-5.0) gm/dl Albumin/Globulin Ratio (0.9-2) Urine Protein (Negative) Urine Ketones (Negative) U Epithel Cells (Auto) (0-5) /lpf Urine Opiates Screen (Neg) Acetaminophen (10-30) ug/ml U Marijuana (THC) Screen (Neg) Diagnostic Findings CT head-No acute intracranial hemorrhage, no evidence of acute territorial infarction or other acute intracranial disease process. (1) Overdose Encounter type: initial encounter Injury intent: undetermined intent Qualified Code(s): T50.904A - Poisoning by unspecified drugs, medicaments and biological substances, undetermined, initial encounter
--- NOTE | 2021-08-07 12:16 | Cardiology Consultation ---
Date of Consultation August 07, 2021 Assessment & Plan (1) Prolonged QT interval: (2) Overdose: (3) Seizure: Patient is a 56-year-old female admitted with mental status changes and obtundation in association with multiple drug overdose. Records reflect suspected Seroquel overdose as well as possible amitriptyline. Patient with initial QT prolongation on first EKG with marked QT prolongation this morning in association with hypokalemia. QTc is shortening after repletion of electrolyte abnormalities but remained prolonged. Records reflect prior QT prolongation with Zofran Recommendations: Maintain telemetry. No arrhythmias currently and patient hemodynamically stable. Serial EKG should continue including later today and a.m. Given possibility of amitriptyline overdose would consider adding sodium bicarb to IV infusion Continue supportive care, avoid further QT prolonging medications History of Present Illness Reason for Consultation: Prolonged QTc interval after multidrug ingestion Requesting Physician: Dr Bagley Attending Physician: Sandor Bagley MD History of Present Illness Patient is a 56-year-old female evaluated in the emergency room. Currently nonconversant with information gained via review of records in chart. Patient brought to the emergency room this admission altered mental status and falls. Daughter and records reflect probable multi drug overdose including Seroquel and amitriptyline. Seizure while in the emergency room Initial QTC 512 with normal sinus rhythm. QT C further prolongation this morn ing at 638. Repeat study 1100 this morning after repletion of electrolyte abnormalities QTC corrected to 519 Patient has been hemodynamically stable without hypotension or arrhythmia Still agitated and confused Underlying medical issues include per outpatient record 1. Type 2 diabetes mellitus 2. Prior seizure disorder 3. History of prolonged QTC with Zofran 4. ANDREWS 5. Hyperlipidemia 6. Depression with prior history of prescription drug overdose Patient is noted a non-smoker nondrinker Allergies Allergy/AdvReac Type Severity Reaction Status Date / Time metoclopramide Allergy Intermediate "NEURO Verified 11/16/18 14:34 COMPLICATIONS" ondansetron Allergy Unknown HEART RACES Unverified 11/16/18 14:34 Penicillins Allergy Unknown UNKNOWN Verified 11/16/18 14:34 erythromycin base AdvReac Unknown NAUSEA Verified 11/16/18 14:34 Home Medications Medication Instructions Recorded Confirmed Type amitriptyline 100 mg tablet 100 mg PO HS 11/16/18 11/16/18 History aspirin 81 mg tablet,delayed 81 mg PO QAM 11/16/18 11/16/18 History release atorvastatin 40 mg tablet 40 mg PO QAM 11/16/18 11/16/18 History cyclobenzaprine 10 mg tablet 10 mg PO BID PRN 11/16/18 11/16/18 History dicyclomine 20 mg tablet 20 mg PO BID PRN 11/16/18 11/16/18 History doxepin 25 mg capsule 25 mg PO HS 11/16/18 11/16/18 History ditozcdzcw-YV-kfdwxlydayvoo 6.25 2 tab PO UD 11/16/18 11/16/18 History mg-15 mg-325 mg capsule (Vicks NyQuil Cold/Flu Liquicap) gabapentin 400 mg capsule 400 mg PO TID 11/16/18 11/16/18 History lubiprostone 24 mcg capsule 24 mcg PO BID 11/16/18 11/16/18 History metformin 1,000 mg tablet 1,000 mg PO BIDM 11/16/18 11/16/18 History naproxen sodium 220 mg tablet 440 mg PO UD 11/16/18 11/16/18 History (Aleve) pantoprazole 40 mg tablet,delayed 40 mg PO QAM 11/16/18 11/16/18 History release promethazine 12.5 mg tablet 12.5 mg PO TID PRN #10 tab 11/16/18 Rx promethazine 25 mg tablet 25 mg PO Q8H PRN 11/16/18 11/16/18 History quetiapine 100 mg tablet 100 mg PO BID 11/16/18 11/16/18 History quetiapine 300 mg tablet 300 mg PO HS 11/16/18 11/16/18 History ranitidine HCl 150 mg tablet 150 mg PO BID 11/16/18 11/16/18 History zolpidem 5 mg tablet 5 mg PO HS PRN 11/16/18 11/16/18 History Patient History Medical History Flu-like symptoms Social History Smoking Status: Unknown if ever smoked Preferred Language: Kittitian Communication Ability: Effective Visual Impairment: No Limitations Hearing Ability: Normal Feels Safe at Home: Yes Physical Exam Constitutional: Agitated and confused age-appropriate female ENMT: Mouth: + malodorous breath and + dentition abnormality Neck: trachea midline, no thyromegaly Respiratory: no labored breathing Cardiovascular: Rate/Rhythm: regular rate and regular rhythm Heart Sounds: normal S1 and normal S2 Vessels: femoral pulses present and radial pulses present; no JVD Extremities: no edema Gastrointestinal (Abdomen): normal bowel sounds, soft, nontender, no hepatosplenomegaly Musculoskeletal: Head/Neck/Chest: normocephalic and head atraumatic Neurologic: + confused Results & Data ([facility]) Vital Signs (Past 12 Hours) Vital Signs Pulse Resp BP Pulse Ox 08/07/21 10:03 77 18 99 08/07/21 02:50 77 15 98 08/07/21 02:40 78 20 100 08/07/21 02:30 77 15 140/83 98 08/07/21 02:20 76 17 99 08/07/21 02:10 77 17 99 08/07/21 02:00 78 20 99 08/07/21 01:50 77 15 99 08/07/21 01:40 86 19 97 08/07/21 01:35 78 18 98 08/07/21 01:20 78 16 98 08/07/21 01:10 81 16 97 08/07/21 01:00 80 23 142/93 H 08/07/21 00:50 75 17 99 08/07/21 00:40 77 18 99 08/07/21 00:30 80 19 99 08/07/21 00:20 20 99 Laboratory Results Laboratory Results - last 24 hr 08/06/21 08/06/21 08/06/21 21:28 21:28 21:28 WBC 12.37 H RBC 3.81 L Hgb 11.9 L Hct 36.2 L MCV 95.0 MCH 31.2 MCHC 32.9 RDW Std Deviation 56.7 H RDW Coeff of [place] 16.3 H Plt Count 319 MPV 9.4 Immature Gran % (Auto) 0.3 Neut % (Auto) 80.1 Lymph % (Auto) 13.7 [place] % (Auto) 5.4 Eos % (Auto) 0.3 Baso % (Auto) 0.2 Neut # (Auto) 9.89 H Lymph # (Auto) 1.70 [place] # (Auto) 0.67 H Eos # (Auto) 0.04 Baso # (Auto) 0.03 Immature Gran # (Auto) 0.04 H Sodium 144 Potassium 3.2 L Chloride 115 H Carbon Dioxide 19 L Anion Gap 10.0 BUN 8 Creatinine 0.98 Est Cr Clr Drug Dosing 59.3 Est GFR ( Amer) 74.2 Est GFR (Non-Af Amer) 64.0 BUN/Creatinine Ratio 8.1 L Glucose 150 H POC Glucose Calcium 8.7 Magnesium 1.7 L Total Bilirubin 0.2 Direct Bilirubin AST 10 L ALT 16 Alkaline Phosphatase 112 Total Creatine Kinase Total Protein 6.8 Albumin 3.1 L Globulin 3.7 Albumin/Globulin Ratio 0.8 L TSH 1.400 Urine Color Urine Appearance Urine pH Ur Specific Declo Urine Protein Urine Glucose (UA) Urine Ketones Urine Blood Urine Nitrite Urine Bilirubin Urine Urobilinogen Ur Leukocyte Esterase Urine WBC (Auto) Urine RBC (Auto) U Hyaline Cast (Auto) U Epithel Cells (Auto) Urine Bacteria (Auto) Salicylates 3.9 Urine Opiates Screen U Codeine Confrm GC/MS Ur Morphine (GC/MS) Ur Hydrocodone (GC/MS) Ur Norhydrocodone Ur Noroxycodone Urine Oxycodone (GC/MS) U Oxymorphone GC/MS Ur Methadone, Qual Ur Hydromorphone (GC/MS) Acetaminophen < 2 L Urine Barbiturates Ur Phencyclidine (PCP) U Amphetamin/Meth Scrn MDMA (Ecstasy) Screen U Benzodiazepines Scrn Ur Cocaine Metabolite U Marijuana (THC) Screen U Marijuana THC Carboxy Drug Screen Comment Ethyl Alcohol mg/dL COVID-19 Eval Order SARS-CoV-2 (PCR) 08/06/21 08/07/21 08/07/21 23:08 05:10 05:10 WBC RBC Hgb Hct MCV MCH MCHC RDW Std Deviation RDW Coeff of [place] Plt Count MPV Immature Gran % (Auto) Neut % (Auto) Lymph % (Auto) [place] % (Auto) Eos % (Auto) Baso % (Auto) Neut # (Auto) Lymph # (Auto) [place] # (Auto) Eos # (Auto) Baso # (Auto) Immature Gran # (Auto) Sodium Potassium Chloride Carbon Dioxide Anion Gap BUN Creatinine Est Cr Clr Drug Dosing Est GFR ( Amer) Est GFR (Non-Af Amer) BUN/Creatinine Ratio Glucose POC Glucose Calcium Magnesium Total Bilirubin Direct Bilirubin AST ALT Alkaline Phosphatase Total Creatine Kinase Total Protein Albumin Globulin Albumin/Globulin Ratio TSH Urine Color Yellow Urine Appearance Clear Urine pH 6.0 Ur Specific Declo 1.020 Urine Protein Trace H Urine Glucose (UA) Negative Urine Ketones 1+ H Urine Blood Negative Urine Nitrite Negative Urine Bilirubin Negative Urine Urobilinogen Negative Ur Leukocyte Esterase Negative Urine WBC (Auto) 1-5 Urine RBC (Auto) 0-4 U Hyaline Cast (Auto) 1-5 U Epithel Cells (Auto) 10-20 H Urine Bacteria (Auto) Negative Salicylates Urine Opiates Screen Pos H U Codeine Confrm GC/MS Ur Morphine (GC/MS) Ur Hydrocodone (GC/MS) Ur Norhydrocodone Ur Noroxycodone Urine Oxycodone (GC/MS) U Oxymorphone GC/MS Ur Methadone, Qual Neg Ur Hydromorphone (GC/MS) Acetaminophen Urine Barbiturates Neg Ur Phencyclidine (PCP) Neg U Amphetamin/Meth Scrn Neg MDMA (Ecstasy) Screen Neg U Benzodiazepines Scrn Neg Ur Cocaine Metabolite Neg U Marijuana (THC) Screen Pos H U Marijuana THC Carboxy Drug Screen Comment Ethyl Alcohol mg/dL < 3.0 COVID-19 Eval Order SARS-CoV-2 (PCR) 08/07/21 08/07/21 08/07/21 05:10 07:01 07:01 WBC 13.91 H RBC 3.88 L Hgb 11.9 L Hct 37.0 MCV 95.4 MCH 30.7 MCHC 32.2 RDW Std Deviation 56.7 H RDW Coeff of [place] 16.3 H Plt Count 340 MPV 9.2 Immature Gran % (Auto) 0.3 Neut % (Auto) 71.5 Lymph % (Auto) 19.6 [place] % (Auto) 8.3 Eos % (Auto) 0.1 Baso % (Auto) 0.2 Neut # (Auto) 9.94 H Lymph # (Auto) 2.73 [place] # (Auto) 1.15 H Eos # (Auto) 0.02 Baso # (Auto) 0.03 Immature Gran # (Auto) 0.04 H Sodium 143 Potassium 2.9 L Chloride 115 H Carbon Dioxide 19 L Anion Gap 9.0 BUN 8 Creatinine 1.03 Est Cr Clr Drug Dosing 56.4 Est GFR ( Amer) 69.9 Est GFR (Non-Af Amer) 60.3 BUN/Creatinine Ratio 8.0 L Glucose 91 POC Glucose Calcium 8.9 Magnesium 2.4 Total Bilirubin Direct Bilirubin AST ALT Alkaline Phosphatase Total Creatine Kinase Total Protein Albumin Globulin Albumin/Globulin Ratio TSH Urine Color Urine Appearance Urine pH Ur Specific Declo Urine Protein Urine Glucose (UA) Urine Ketones Urine Blood Urine Nitrite Urine Bilirubin Urine Urobilinogen Ur Leukocyte Esterase Urine WBC (Auto) Urine RBC (Auto) U Hyaline Cast (Auto) U Epithel Cells (Auto) Urine Bacteria (Auto) Salicylates Urine Opiates Screen U Codeine Confrm GC/MS Pending Ur Morphine (GC/MS) Pending Ur Hydrocodone (GC/MS) Pending Ur Norhydrocodone Pending Ur Noroxycodone Pending Urine Oxycodone (GC/MS) Pending U Oxymorphone GC/MS Pending Ur Methadone, Qual Ur Hydromorphone (GC/MS) Pending Acetaminophen Urine Barbiturates Ur Phencyclidine (PCP) U Amphetamin/Meth Scrn MDMA (Ecstasy) Screen U Benzodiazepines Scrn Ur Cocaine Metabolite U Marijuana (THC) Screen U Marijuana THC Carboxy Pending Drug Screen Comment Pending Ethyl Alcohol mg/dL COVID-19 Eval Order SARS-CoV-2 (PCR) 08/07/21 08/07/21 08/07/21 10:59 11:14 Unknown WBC RBC Hgb Hct MCV MCH MCHC RDW Std Deviation RDW Coeff of [place] Plt Count MPV Immature Gran % (Auto) Neut % (Auto) Lymph % (Auto) [place] % (Auto) Eos % (Auto) Baso % (Auto) Neut # (Auto) Lymph # (Auto) [place] # (Auto) Eos # (Auto) Baso # (Auto) Immature Gran # (Auto) Sodium 142 Potassium 3.6 D Chloride 117 H Carbon Dioxide 16 L Anion Gap 9.0 BUN 8 Creatinine 0.84 Est Cr Clr Drug Dosing 69.2 Est GFR ( Amer) 89.4 Est GFR (Non-Af Amer) 77.2 BUN/Creatinine Ratio 9.3 L Glucose 80 POC Glucose 94 Calcium 8.5 Magnesium Total Bilirubin 0.3 Direct Bilirubin < 0.1 AST 14 L ALT 17 Alkaline Phosphatase 110 Total Creatine Kinase 300 H Total Protein 6.5 Albumin 2.8 L Globulin Albumin/Globulin Ratio TSH Urine Color Urine Appearance Urine pH Ur Specific Declo Urine Protein Urine Glucose (UA) Urine Ketones Urine Blood Urine Nitrite Urine Bilirubin Urine Urobilinogen Ur Leukocyte Esterase Urine WBC (Auto) Urine RBC (Auto) U Hyaline Cast (Auto) U Epithel Cells (Auto) Urine Bacteria (Auto) Salicylates Urine Opiates Screen U Codeine Confrm GC/MS Ur Morphine (GC/MS) Ur Hydrocodone (GC/MS) Ur Norhydrocodone Ur Noroxycodone Urine Oxycodone (GC/MS) U Oxymorphone GC/MS Ur Methadone, Qual Ur Hydromorphone (GC/MS) Acetaminophen Urine Barbiturates Ur Phencyclidine (PCP) U Amphetamin/Meth Scrn MDMA (Ecstasy) Screen U Benzodiazepines Scrn Ur Cocaine Metabolite U Marijuana (THC) Screen U Marijuana THC Carboxy Drug Screen Comment Ethyl Alcohol mg/dL COVID-19 Eval Order Covid19 at [facility] SARS-CoV-2 (PCR) 08/07/21 Unknown WBC RBC Hgb Hct MCV MCH MCHC RDW Std Deviation RDW Coeff of [place] Plt Count MPV Immature Gran % (Auto) Neut % (Auto) Lymph % (Auto) [place] % (Auto) Eos % (Auto) Baso % (Auto) Neut # (Auto) Lymph # (Auto) [place] # (Auto) Eos # (Auto) Baso # (Auto) Immature Gran # (Auto) Sodium Potassium Chloride Carbon Dioxide Anion Gap BUN Creatinine Est Cr Clr Drug Dosing Est GFR ( Amer) Est GFR (Non-Af Amer) BUN/Creatinine Ratio Glucose POC Glucose Calcium Magnesium Total Bilirubin Direct Bilirubin AST ALT Alkaline Phosphatase Total Creatine Kinase Total Protein Albumin Globulin Albumin/Globulin Ratio TSH Urine Color Urine Appearance Urine pH Ur Specific Declo Urine Protein Urine Glucose (UA) Urine Ketones Urine Blood Urine Nitrite Urine Bilirubin Urine Urobilinogen Ur Leukocyte Esterase Urine WBC (Auto) Urine RBC (Auto) U Hyaline Cast (Auto) U Epithel Cells (Auto) Urine Bacteria (Auto) Salicylates Urine Opiates Screen U Codeine Confrm GC/MS Ur Morphine (GC/MS) Ur Hydrocodone (GC/MS) Ur Norhydrocodone Ur Noroxycodone Urine Oxycodone (GC/MS) U Oxymorphone GC/MS Ur Methadone, Qual Ur Hydromorphone (GC/MS) Acetaminophen Urine Barbiturates Ur Phencyclidine (PCP) U Amphetamin/Meth Scrn MDMA (Ecstasy) Screen U Benzodiazepines Scrn Ur Cocaine Metabolite U Marijuana (THC) Screen U Marijuana THC Carboxy Drug Screen Comment Ethyl Alcohol mg/dL COVID-19 Eval Order SARS-CoV-2 (PCR) NEGATIVE (1) Overdose Encounter type: initial encounter Injury intent: undetermined intent Qualified Code(s): T50.904A - Poisoning by unspecified drugs, medicaments and biological substances, undetermined, initial encounter
--- NOTE | 2021-08-07 12:30 | Electrocardiogram Report ---
Test Reason : Blood Pressure : / mmHG Vent. Rate : 076 BPM Atrial Rate : 076 BPM P-R Int : 172 ms QRS Dur : 092 ms QT Int : 462 ms P-R-T Axes : 069 031 067 degrees QTc Int : 519 ms Normal sinus rhythm Diffuse Nonspecific T wave abnormality Abnormal ECG When compared with ECG of 07-AUG-2021 05:46, No significant change Confirmed by Hugo Hoff ([id number]) on 08/07/2021 12:29:53 PM Referred By: REFERRED SELF Confirmed By:Hugo Hoff
--- NOTE | 2021-08-07 12:57 | Communication Note ---
Date of Service: August 07, 2021 Psychiatric liason attempted to see patient but initial assessment unable to occur due to patient's level of somnolence from recent overdose. Plan: -psych liason will attempt to see her again this evening with official psych consult to occur once she is able to participate with interview -currently given acuity of suicide attempt with lethal potential continue 1:1 observation, patient may not leave AMA without clearance from psychiatry, hold prior to admission psych medications in setting of overdose and prolonged QTc
[2021-08-07] MEDS ORDERED: FLUARIX QUADRIVALENT 0.5 ML SYR IM ONE (13:55)
--- NOTE | 2021-08-07 14:04 | Hospitalist Progress Note ---
Date of Service August 07, 2021 Assessment & Plan (1) Seizure: (2) Overdose: (3) Prolonged QT interval: Plan: ASSESSMENT AND PLAN: This is a 56-year-old female presents with intentional drug overdose. 1. Intentional drug overdose. Seizure episode at the ER, history of seizure Prolonged QT Hypokalemia, hypomagnesemia Per Dr. Sánchez's notes: Seroquel empty bottle found at home and also amitriptyline ingestion.Found confused today. Speech is somewhat garbled in the ER. CT of the head is okay and she had episode of seizures in the ER. received a dose of keppra and n Ativan. 08/07/2021 Urine drug screen also showing opioid and marijuana so far, rest of urine drug screen results pending Patient still confused, drowsy Repeat EKG showing prolonged QT corrected of 638, increased from 512 Potassium 2.9, magnesium 2.4 Sixpacks of K riders ordered, 1 mg of IV magnesium also ordered Poison Control Center notified, agree with above management, recommend recheck LFTs, [employer] Industrial Economist Dr. Jin consulted for prolonged QT Continue supportive management Repeat BMP at 3 PM as well as EKG Has received IV Keppra and Ativan at the ER No recurrence of seizure Awaiting neurology service recommendations 2. Drug overdose, intentional. Psychiatry service consulted Would continue one-to-one observation 3. History of diabetes. Hold home metformin, placed on insulin sliding scale. 4. Depression: Currently holding all home medications, once stable management as per Psychiatry. 5. Hyperlipidemia: On statin. 6. Gastroesophageal reflux disease: On Protonix. Currently, holding all oral medications. 7. History of prolonged QTc as per EPIC. Management per #1 8. History of irritable bowel syndrome, constipation. Currently, holding her home medications and restart when the patient is stable. 9.. Deep venous thrombosis prophylaxis: Sequential compression devices. Admission and Anticipated Discharge Date Admission Date: August 07, 2021 Subjective Follow-up for Seroquel overdose, seizure episode in the ER, etc. Seen with FOOD SPECIALIST and RN at the bedside throughout whole encounter Patient sleeping but easily awakened, able to state her name, otherwise patient is confused Seems to be calm, cooperative on my exam Denies shortness of breath, chest pain, pain Full review of systems difficult to assess due to patient's cognitive status Per staff, patient has been confused as well this morning No recurrence of seizures, nausea or vomiting, signs of chest pain, respiratory distress Review of Systems Review of Systems: all noted and negative except for above Physical Exam Physical Exam: General- General- oriented to self otherwise very confused not in distress, speaks in sentences with no effort or accessory muscle use Head- atraumatic Eyes- PERRL, EOMI, anicteric ENT- oropharynx clear Dry oral mucosa Neck- supple, no JVD, no adenopathy, no thyromegaly; carotids +2/2, no bruits appreciated Lungs- clear to auscultation bilaterally, no rales/wheezes Heart- normal rate, regular rhythm; no murmur, no gallop, no rub appreciated Abdomen- normal bowel sounds, nondistended, soft, nontender, no masses or hepatosplenomegaly Extremities- no pretibial edema, no calf tenderness; peripheral pulses intact Neuro- alert, oriented x 2 self; confused, on the drowsy side, CN 2-12 grossly intact; moves all extremities equally Skin- warm & dry Psych-patient is currently confused, somewhat drowsy Results & Data Results & Data ([facility]) Vital Signs (Past 12 Hours) Vital Signs Pulse Pulse Resp BP BP Pulse Ox 08/07/21 13:48 79 18 116/77 97 08/07/21 10:03 77 18 99 08/07/21 02:50 77 15 98 08/07/21 02:40 78 20 100 08/07/21 02:30 77 15 140/83 98 08/07/21 02:20 76 17 99 08/07/21 02:10 77 17 99 all noted and reviewed including below (1) Overdose Encounter type: initial encounter Injury intent: undetermined intent Qualified Code(s): T50.904A - Poisoning by unspecified drugs, medicaments and biological substances, undetermined, initial encounter
[2021-08-07 15:19] LABS: BUN Creatinine Ratio 9.2 (10-20); Calcium 8.6 mg/dl (8.5-10.1); Est GFR (African American) 90.7 ml/min; Est GFR (Non-African American) 78.3 ml/min
[2021-08-07] MEDS: SODIUM CHLORIDE 0.9% 1000ML 1,000 ML IV SCH (19:14)
[2021-08-07 21:57] LABS: BUN Creatinine Ratio 8.3 (10-20); Calcium 8.2 mg/dl (8.5-10.1); Creatinine Clr Calc Pharmacy 75.5 ml/min; Est GFR (African American) 99.3 ml/min; Est GFR (Non-African American) 85.7 ml/min; Potassium 3.9 mmol/L (3.5-5.1)
[2021-08-08] MEDS: SODIUM CHLORIDE 0.9% 1000ML 1,000 ML IV SCH (03:14)
[2021-08-08 04:45] LABS: BUN Creatinine Ratio 8.1 (10-20); Calcium 8.1 mg/dl (8.5-10.1); Creatinine Clr Calc Pharmacy 78.5 ml/min; Est GFR (African American) 104.2 ml/min; Est GFR (Non-African American) 89.9 ml/min; Magnesium 1.9 mg/dl (1.8-2.4); Potassium 3.9 mmol/L (3.5-5.1)
[2021-08-08] MEDS ORDERED: GLUCOSE 40% GEL 15 GM TUBE PO PRN (05:00)
[2021-08-08] MEDS ORDERED: GLUCAGON FOR INJ 1 MG VIAL IM PRN (05:00)
[2021-08-08] MEDS ORDERED: DEXTROSE 50% 50 ML SYRINGE IV PRN (05:00)
[2021-08-08] MEDS ORDERED: CARBOHYDRATES FOR HYPOGLYCEMIA PO PRN (05:00)
[2021-08-08] MEDS ORDERED: GLUCOSE 10 TABS/TUBE PO PRN (05:00)
[2021-08-08] MEDS: D5W AND NSS 1,000 ML IV SCH ×2 (05:27→13:32)
[2021-08-08] MEDS: INSULIN ASPART 100 UNITS/ML 3 ML PEN SC SCH ×4 (08:35→20:23)
--- NOTE | 2021-08-08 08:51 | Electrocardiogram Report ---
Test Reason : Blood Pressure : / mmHG Vent. Rate : 081 BPM Atrial Rate : 081 BPM P-R Int : 166 ms QRS Dur : 086 ms QT Int : 428 ms P-R-T Axes : 059 013 055 degrees QTc Int : 497 ms Normal sinus rhythm Prolonged QT Diffuse Nonspecific T wave abnormality Abnormal ECG When compared with ECG of 07-AUG-2021 12:01, No significant change was found Confirmed by Hugo Hoff ([id number]) on 08/08/2021 8:51:26 AM Referred By: REFERRED SELF Confirmed By:Hugo Hoff
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
--- NOTE | 2021-08-08 15:28 | Electroencephalogram ---
EEG Procedure Note Date of Service August 07, 2021 Start / End Times Start Time: 11:13 End Time: 11:33 Referring Physician Mary Jo Sánchez MD History A 56-year-old woman with altered mental status / possible seizure. EEG performed for evaluation epileptiform activity. Home Medication List Medication Instructions Recorded Confirmed Type amitriptyline 100 mg tablet 100 mg PO HS 11/16/18 11/16/18 History aspirin 81 mg tablet,delayed 81 mg PO QAM 11/16/18 11/16/18 History release atorvastatin 40 mg tablet 40 mg PO QAM 11/16/18 11/16/18 History cyclobenzaprine 10 mg tablet 10 mg PO BID PRN 11/16/18 11/16/18 History dicyclomine 20 mg tablet 20 mg PO BID PRN 11/16/18 11/16/18 History doxepin 25 mg capsule 25 mg PO HS 11/16/18 11/16/18 History clwmpijkqr-LP-lkgxmwbpubiyk 6.25 2 tab PO UD 11/16/18 11/16/18 History mg-15 mg-325 mg capsule (Vicks NyQuil Cold/Flu Liquicap) gabapentin 400 mg capsule 400 mg PO TID 11/16/18 11/16/18 History lubiprostone 24 mcg capsule 24 mcg PO BID 11/16/18 11/16/18 History metformin 1,000 mg tablet 1,000 mg PO BIDM 11/16/18 11/16/18 History naproxen sodium 220 mg tablet 440 mg PO UD 11/16/18 11/16/18 History (Aleve) pantoprazole 40 mg tablet,delayed 40 mg PO QAM 11/16/18 11/16/18 History release promethazine 12.5 mg tablet 12.5 mg PO TID PRN #10 tab 11/16/18 Rx promethazine 25 mg tablet 25 mg PO Q8H PRN 11/16/18 11/16/18 History quetiapine 100 mg tablet 100 mg PO BID 11/16/18 11/16/18 History quetiapine 300 mg tablet 300 mg PO HS 11/16/18 11/16/18 History ranitidine HCl 150 mg tablet 150 mg PO BID 11/16/18 11/16/18 History zolpidem 5 mg tablet 5 mg PO HS PRN 11/16/18 11/16/18 History Inpatient Medication List Dextrose (Dextrose 50% 50 Ml Syringe) 25 - 50 ml IV UD PRN; Protocol PRN Reason: Hypoglycemia Protocol Stop: 09/07/21 04:59 Last Admin: 08/08/21 05:03 Dose: 25 ml Documented by: [id number] Lorazepam (Ativan) 1.5 mg in 3 mls @ 3 mls/min IV Q2H PRN PRN Reason: Breakthrough Seizures Stop: 09/06/21 05:46 Last Admin: 08/07/21 16:10 Dose: 3 mls/min Documented by: [id number] Dextrose/Sodium Chloride (D5w And Nss) 1,000 mls @ 125 mls/hr IV .Q8H AMELIA Stop: 09/07/21 05:14 Last Infusion: 08/08/21 13:42 Dose: 0 mls/hr Documented by: [id number] Admin: 08/08/21 13:32 Dose: 125 mls/hr Documented by: [id number] Infusion: 08/08/21 13:27 Dose: 125 mls/hr Documented by: [id number] Admin: 08/08/21 05:27 Dose: 125 mls/hr Documented by: [id number] Insulin Aspart (Insulin Aspart 100 Units/Ml 3 Ml Pen) 0 units SC ACHS [facility] Stop: 09/06/21 11:29 Last Admin: 08/08/21 12:10 Dose: Not Given Documented by: [id number] Admin: 08/08/21 08:35 Dose: Not Given Documented by: [id number] Cosigned by: [id number] Admin: 08/07/21 20:43 Dose: Not Given Documented by: [id number] Cosigned by: [id number] Admin: 08/07/21 16:02 Dose: Not Given Documented by: [id number] Admin: 08/07/21 11:44 Dose: Not Given Documented by: [id number] Discontinued Medications Aspirin (Aspirin 81 Mg Ectab) [facility] Stop: 09/06/21 08:59 Last Admin: 08/07/21 11:03 Dose: Not Given Documented by: [id number] Atorvastatin Calcium (Atorvastatin 40 Mg Tab) 40 mg PO QAM [facility] Stop: 09/06/21 08:59 Last Admin: 08/07/21 11:03 Dose: Not Given Documented by: [id number] Magnesium Sulfate/Dextrose (Magnesium Sulfate / D5w) 1 gm in 100 mls @ 200 mls/hr IV Q30M AMELIA Stop: 08/07/21 01:14 Last Infusion: 08/07/21 01:40 Dose: 200 mls/hr Documented by: [id number] Admin: 08/07/21 01:00 Dose: 200 mls/hr Documented by: [id number] Infusion: 08/07/21 01:00 Dose: 200 mls/hr Documented by: [id number] Admin: 08/07/21 00:23 Dose: 200 mls/hr Documented by: [id number] Lorazepam (Ativan) 1 mg in 2 mls @ 2 mls/min IV NOW STA Stop: 08/07/21 01:12 Last Admin: 08/07/21 01:30 Dose: Not Given Documented by: [id number] Levetiracetam 1,000 mg/ Sodium (Chloride) 110 mls @ 440 mls/hr IV NOW STA Stop: 08/07/21 01:26 Last Infusion: 08/07/21 02:13 Dose: 440 mls/hr Documented by: [id number] Admin: 08/07/21 01:49 Dose: 440 mls/hr Documented by: [id number] Potassium Chloride 40 meq/ (Sodium Chloride) 1,020 mls @ 100 mls/hr IV .[id number] AMELIA Stop: 09/06/21 01:29 Last Infusion: 08/07/21 12:17 Dose: 0 mls/hr Documented by: [id number] Admin: 08/07/21 02:20 Dose: 100 mls/hr Documented by: [id number] Magnesium Sulfate/Dextrose (Magnesium Sulfate / D5w) 1 gm in 100 mls @ 50 mls /hr IV ONE ONE Stop: 08/07/21 07:38 Last Admin: 08/07/21 06:59 Dose: Not Given Documented by: [id number] Potassium Chloride/Sodium Chloride (Normal Saline W/20 Meq Kcl) 20 meq in 1,000 mls @ 125 mls/hr IV .Q8H [facility] Stop: 09/06/21 06:14 Last Admin: 08/07/21 19:16 Dose: Not Given Documented by: [id number] Infusion: 08/07/21 19:15 Dose: 0 mls/hr Documented by: [id number] Admin: 08/07/21 10:08 Dose: 125 mls/hr Documented by: [id number] Potassium Chloride (K Jesus / Wtr) 10 meq in 100 mls @ 100 mls/hr IV Q1H AMELIA Stop: 08/07/21 14:21 Last Infusion: 08/07/21 19:14 Dose: 0 mls/hr Documented by: [id number] Admin: 08/07/21 16:02 Dose: 100 mls/hr Documented by: [id number] Infusion: 08/07/21 16:00 Dose: 100 mls/hr Documented by: [id number] Admin: 08/07/21 15:00 Dose: 100 mls/hr Documented by: [id number] Infusion: 08/07/21 14:38 Dose: 100 mls/hr Documented by: [id number] Admin: 08/07/21 13:38 Dose: 100 mls/hr Documented by: [id number] Infusion: 08/07/21 13:16 Dose: 100 mls/hr Documented by: [id number] Admin: 08/07/21 12:16 Dose: 100 mls/hr Documented by: [id number] Infusion: 08/07/21 12:08 Dose: 100 mls/hr Documented by: [id number] Admin: 08/07/21 11:08 Dose: 100 mls/hr Documented by: [id number] Infusion: 08/07/21 10:57 Dose: 100 mls/hr Documented by: [id number] Admin: 08/07/21 09:57 Dose: 100 mls/hr Documented by: [id number] Magnesium Sulfate/Dextrose (Magnesium Sulfate / D5w) 1 gm in 100 mls @ 50 mls/hr IV ONE ONE Stop: 08/07/21 12:04 Last Infusion: 08/07/21 13:30 Dose: 0 mls/hr Documented by: [id number] Admin: 08/07/21 11:08 Dose: 50 mls/hr Documented by: [id number] Sodium Chloride (Nss 1000ml) 1,000 mls @ 125 mls/hr IV .Q8H AMELIA Stop: 09/06/21 18:59 Last Infusion: 08/08/21 05:09 Dose: 0 mls/hr Documented by: [id number] Admin: 08/08/21 03:14 Dose: 125 mls/hr Documented by: [id number] Infusion: 08/08/21 03:14 Dose: 125 mls/hr Documented by: [id number] Admin: 08/07/21 19:14 Dose: 125 mls/hr Documented by: [id number] Lorazepam (Lorazepam 2 Mg/4 Ml Vial) Confirm Administered Dose 2 mg .ROUTE .STK- MED ONE Stop: 08/07/21 01:08 Last Increment: 08/07/21 01:09 Dose: 1 mg Documented by: [id number] Lorazepam (Lorazepam 2 Mg/4 Ml Vial) Confirm Administered Dose 2 mg .ROUTE .STK- MED ONE Stop: 08/07/21 04:59 Last Increment: 08/07/21 05:01 Dose: 1 mg Documented by: [id number] Potassium Chloride (Potassium Chloride 20 Meq/15 Ml Udc) 40 meq PO NOW STA Stop: 08/07/21 08:46 Last Admin: 08/07/21 12:17 Dose: Not Given Documented by: [id number] Description This is a 21 electrode EEG with a single channel dedicated to limited EKG. The electrodes were placed in accordance with the International 10-20 system. REPORT: At the onset of the EEG the patient is awake. The background is symmetric and appears disorganized. The posterior dominant rhythm is not well seen.There is a loss of the normal anterior to posterior gradient. The background predominantly consists of 5-7 hertz theta activity with intermixed faster frequencies. There is a large amount of electrode and myogenic artifact due to patient head motion. No stage 2 sleep transients are seen. Photic stimulation is performed and does not induce any additional abnormalities. Interpretation This is an abnormal awake routine EEG in a patient with altered mentation due to generalized background slowing suggestive of a nonspecific encephalopathy. Large portions of this recording are obscured by electrode and myogenic artifact from patient motion. No epileptiform discharges or electrographic seizures are seen.
--- NOTE | 2021-08-08 23:52 | Hospitalist Progress Note ---
Date of Service August 08, 2021 Assessment & Plan (1) Seizure: (2) Overdose: (3) Prolonged QT interval: Plan: Intentional drug overdose. Present on admission after found confused an drowsiness at home Patient most have taken a handful of Seroquel and amitriptyline (Seroquel and amitriptyline empty bottles found at home) Urine drug screen also showing opioid and marijuana so far Poison control was contacted recommended to monitor electrolytes and serial EKG for QT prolonged Psych on board Continue one-to-one observation Can not leave AMA without psych clearance Clinically improved QTC prolongation EKG showing prolonged QT corrected of 638, increased from 512 Repeat EKG this morning showed QT interval decrease to 490s Cardiology on board Continue monitor electrolytes Seizure As documented patient had an episode of seizure in the ER Received IV Keppra and Ativan in the ER Neuro on board Continue Keppra 500 mg twice daily MRI of the brain ordered Consider to discontinue Keppra if MRI negative Continue Ativan as needed and seizure precaution no driving for 6 months from last seizure date, no heights, no bathing or swimming alone Will resume gabapentin as per neuro recommendation Electrolyte abnormality Electrolytes stable with potassium 3.9 and magnesium 1.9 Continue monitor electrolytes History of diabetes. Continue to hold hold home metformin placed on insulin sliding scale. Depression: Currently holding all home medications, once stable management as per Psychiatry. Hyperlipidemia: On statin. Gastroesophageal reflux disease: On Protonix. Currently, holding all oral medications. History of irritable bowel syndrome, constipation. Currently, holding her home medications and restart when the patient is stable. Deep venous thrombosis prophylaxis: Sequential compression devices. Admission and Anticipated Discharge Date Admission Date: August 07, 2021 Subjective Patient was seen and examined for follow-up of lethargy and drowsiness due to Seroquel overdose Lying in bed with no acute distress with one-to-one sitter Patient is very anxious to go home today She denies any chest pain, palpitation, dizziness, hallucination, and suicidal ideation Review of Systems Review of Systems: All systems reviewed & are unremarkable except as noted in Subjective Physical Exam Physical Exam: General- No acute distress Head- atraumatic Eyes- PERRL, EOMI, ENT- oropharynx clear Neck- supple, no JVD Lungs- clear to auscultation Heart- regular rhythm; no murmur Abdomen- normal bowel sounds, soft, nontender Extremities- no calf tenderness Neuro- alert, oriented x 3; PERRL, EOMI; no facial palsy; no dysarthria Skin- warm & dry Results & Data Results & Data ([facility]) Vital Signs (Past 12 Hours) Vital Signs Temp Pulse Pulse Resp BP BP Pulse Ox 08/08/21 20:04 36.7 C 80 18 141/79 H 99 08/08/21 16:27 36.7 C 91 H 20 128/79 98 08/08/21 16:06 86 08/08/21 15:00 Pulse Ox 08/08/21 20:04 08/08/21 16:27 08/08/21 16:06 08/08/21 15:00 98 (1) Overdose Encounter type: initial encounter Injury intent: undetermined intent Qualified Code(s): T50.904A - Poisoning by unspecified drugs, medicaments and biological substances, undetermined, initial encounter
[2021-08-09 07:57] LABS: Codeine Urine NEGATIVE ng/mL (<50); Hydrocodone Urine NEGATIVE ng/mL (<50); Hydromor Urine NEGATIVE ng/mL (<50); Marijuana Quant, GCMS Urine 409 ng/mL (<5); Morphine Urine NEGATIVE ng/mL (<50); Norhydrocodone Conf Ur NEGATIVE ng/mL (<50); Noroxycodone Urine NEGATIVE ng/mL (<50); Oxycodone Urine NEGATIVE ng/mL (<50); Oxymorph Urine NEGATIVE ng/mL (<50)
[2021-08-09] MEDS: INSULIN ASPART 100 UNITS/ML 3 ML PEN SC SCH ×3 (08:04→17:15)
[2021-08-09] MEDS: GABAPENTIN 400 MG CAP PO SCH ×2 (08:04→13:55)
--- NOTE | 2021-08-09 08:45 | Electrocardiogram Report ---
Test Reason : Blood Pressure : / mmHG Vent. Rate : 076 BPM Atrial Rate : 076 BPM P-R Int : 170 ms QRS Dur : 086 ms QT Int : 418 ms P-R-T Axes : 061 029 075 degrees QTc Int : 470 ms Normal sinus rhythm Diffuse Nonspecific T wave abnormality Abnormal ECG When compared with ECG of 08-AUG-2021 06:00, No significant change was found Confirmed by Hugo Hoff ([id number]) on 08/09/2021 8:45:26 AM Referred By: REFERRED SELF Confirmed By:Hugo Hoff
[2021-08-09] MEDS ORDERED: GADOBUTROL 65ML VIAL IV ONE (08:51)
--- NOTE | 2021-08-09 11:04 | Psychiatric Progress Note ---
Date of Service August 09, 2021 Impression / Recommendations Impression 56 yo woman with a history of depression, misuse of prescription medications, frequent falls, ?TBI, seizures, T2DM, HLD, QTc prolongation was admitted after presenting with AMS and seizure with empty prescription bottles of seroquel and amitriptyline. Psychiatry was consulted for risk assessment. Diagnostically most consistent with MDD vs seasonal affective disorder as well as possible TBI, history of kleptomania and substance use disorder. Unclear what her cognitive baseline looks like. From a risk standpoint she adamantly denies that her ingestion was a suicide attempt and collateral from her daughter supports this as does statements she made to others since admission. Review of past records from [facility] as well as outpatients records from her psychiatry appointments with Dr. Strong confirm no recent concern for SI, no history of self-harm and no other prior psychiatric diagnoses except depression, anxiety and kleptomania. Her lack of impulse control, likely from prior TBI, in combination with marijauna use may have lead her to overuse her prescription medication, especially as this is pattern that has occurred in the past. She had a previous inpatient admission in December 2011 where she took too many pills of aspirin and similarly admantanly denied SI or intent to but rather ultimately admitted that she misused the aspirin intentionally with the goal of additional pain relief for medical symptoms. At this point I do not suspect that this was a suicide attempt and she denies most risk factors (no prior hx of attempts, no hx of SI, no access to guns) with the exception of suspected substance use and endorses significant reasons to live. Additionally, review of her outpatient psychiatry notes and historical visits are also reassuring. She is not deemed to be at high imminent risk of harm to self. Chronic risk remains moderate given periods of depression as well as impulsivity and hx of TBI with potential for unintentional self-harm via medication misuse. Ideally family can be in charge of her dispensing her medication and use a weekly pill box with remaining medication secured. She was offered option for inpatient psychiatric treatment or substance use treatment both of which she declines at this time. She does not meet criteria for involuntary psychiatric treatment. She did agree to start outpatient therapy so will work on setting this up, she states she can get transportation to appointments from her mother or children. (1) Delirium: (2) Overdose: (3) Depression, unspecified: -can discontinue 1:1 -hold home psych medications for 2 more days, can restart on 08/11/21 if QTc improves -has outpatient psychiatry with follow-up scheduled with Dr. Strong at [facility] -psych liason working on therapy referral for additional outpatient support and ideally insight-oriented therapy and strategies to manage impulsivity to reduce long-term risk of intentional or unintentional harm to self Risk Factors Assessment : Yes Do You Have Access To A Gun?: No Mental Health Diagnoses: Yes Substance Use Disorders: Yes Previous Attempt: No Family History of Suicide: No Previous Psychiatric Hospitalization: Yes Hopelessness: No Protective Factors Assessment : Yes Responsible for Young Children: Yes (watches grandchildren ages 2.5-10.5) Stable Relationships: Yes Supportive Family: Yes Good Rapport with Provider: Yes Interval History Identifying Information 56 yo woman with a history of depression, misuse of prescription medications, frequent falls, ?TBI, seizures, T2DM, HLD, QTc prolongation was admitted after presenting with AMS and seizure with empty prescription bottles of seroquel and amitriptyline. Psychiatry was consulted for risk assessment. Chief Complaint "I'm feeling better today". Review of Systems Notes Reports stable sleep and appetite. Subjective Subjective Patient was seen & assessed and interval progress. Today she reports starting to feel better both physically and in terms of her mood. Denies any depression symptoms today. Becomes tearful discussing calls from her family and grandchildren who were worried about her after the severity of this overdose. She continues to state she has no recollection of having taken tons of seroquel but today reports that she likely did take "more than her prescribed amount" wh ich she thinks would have been to get more sleep. She again adamantly and sincerely denies multiple times that this was a suicide attempt and continues to deny any SI. Today is fully oriented though continues to mix up past events, today denying any previous psychiatric hospitalization. She again denies any substance use but when we discuss the results of her UDS she acknowledges use of marijuana for many years of smoking every night. States that sometimes she does things, like too many of her medications, after smoking marijuana and states this could potentially be what lead her to have an overdose of seroquel. Opioid confirmatory testing was negative. She states her mood tends to worsen seasonally every fall. Denies any history of angela or psychosis. Per collateral sounds like she can become quite decompensated when depression becomes severe to the point of requiring family's help with basic ADLs. Discussed potential treatment options at length. Physical Exam Psychiatric Orientation: alert, oriented to person, oriented to place and oriented to time Apperance: appropriately dressed and + disheveled Eye Contact: good eye contact Motor Behavior: no abnormal motor movements Speech: normal rate/rhythm/volume of speech Affect: + tearful affect (at times when discussing talking with family) Mood: + depressed mood; no anxious mood Thought Process: + looseness of associations Thought Content: reality based without delusions Suicidal Thoughts: denies suicidal thoughts Homicidal Thoughts: denies homicidal thoughts Hallucinations: no auditory hallucinations and no visual hallucinations Cognition: remote memory grossly intact, attention grossly intact and language grossly intact; + recent memory not intact Insight: + impaired insight Judgement: + impaired judgement Vital Signs (Past 24 Hours) Last Vital Signs Temp 36.7 C 08/09/21 07:55 Pulse 80 08/09/21 07:55 Resp 20 08/09/21 07:55 BP 129/89 08/09/21 07:55 Pulse Ox 97 08/09/21 07:55 Results & Data ([facility]) Laboratory Results Laboratory Results - last 24 hr 08/07/21 08/08/21 08/08/21 05:10 11:48 20:08 POC Glucose 123 H 100 H U Codeine Confrm GC/MS NEGATIVE Ur Morphine (GC/MS) NEGATIVE Ur Hydrocodone (GC/MS) NEGATIVE Ur Norhydrocodone NEGATIVE Ur Noroxycodone NEGATIVE Urine Oxycodone (GC/MS) NEGATIVE U Oxymorphone GC/MS NEGATIVE Ur Hydromorphone (GC/MS) NEGATIVE U Marijuana THC Carboxy 409 H Drug Screen Comment SEE NOTE 08/09/21 07:52 POC Glucose 104 H U Codeine Confrm GC/MS Ur Morphine (GC/MS) Ur Hydrocodone (GC/MS) Ur Norhydrocodone Ur Noroxycodone Urine Oxycodone (GC/MS) U Oxymorphone GC/MS Ur Hydromorphone (GC/MS) U Marijuana THC Carboxy Drug Screen Comment Current Inpatient Medications Current Inpatient Medications: Current Inpatient Medications Acetaminophen (Acetaminophen 325 Mg Tab) 650 mg PO Q4H PRN PRN Reason: Pain or Fever Stop: 09/06/21 06:41 Dextrose (Dextrose 50% 50 Ml Syringe) 25 - 50 ml IV UD PRN; Protocol PRN Reason: Hypoglycemia Protocol Stop: 09/07/21 04:59 Last Admin: 08/08/21 05:03 Dose: 25 ml Documented by: Gabapentin (Gabapentin 400 Mg Cap) 400 mg PO TID [facility] Stop: 09/08/21 08:59 Last Admin: 08/09/21 08:04 Dose: 400 mg Documented by: Glucagon (Glucagon For Inj 1 Mg Vial) 1 mg IM UD PRN; Protocol PRN Reason: Hypoglycemia Protocol Stop: 09/07/21 04:59 Glucose (Glucose 40% Gel 15 Gm Tube) 15 - 30 gm PO UD PRN; Protocol PRN Reason: Hypoglycemia Protocol Stop: 09/07/21 04:59 Glucose (Glucose 10 Tabs/Tube) 4 - 8 tabs PO UD PRN; Protocol PRN Reason: Hypoglycemia Protocol Stop: 09/07/21 04:59 Lorazepam (Ativan) 1.5 mg in 3 mls @ 3 mls/min IV Q2H PRN PRN Reason: Breakthrough Seizures Stop: 09/06/21 05:46 Last Admin: 08/07/21 16:10 Dose: 3 mls/min Documented by: Lorazepam (Ativan) 1 mg in 2 mls @ 2 mls/min IV Q4H PRN PRN Reason: Agitation Stop: 09/06/21 05:47 Insulin Aspart (Insulin Aspart 100 Units/Ml 3 Ml Pen) 0 units SC ACHS [facility] Stop: 09/06/21 11:29 Last Admin: 08/09/21 08:04 Dose: Not Given Documented by: Miscellaneous (Carbohydrates For Hypoglycemia ) 15 - 30 gm PO UD PRN PRN Reason: Hypoglycemia Treatment Stop: 09/07/21 04:59 Nitroglycerin (Nitroglycerin Sl 0.4 Mg/Tab Tab) 0.4 mg SL UD PRN PRN Reason: Chest Pain Stop: 09/06/21 06:41 (1) Overdose Encounter type: initial encounter Injury intent: undetermined intent Qualified Code(s): T50.904A - Poisoning by unspecified drugs, medicaments and biological substances, undetermined, initial encounter
--- NOTE | 2021-08-09 11:56 | Magnetic Resonance Report ---
Brain MRI WITH AND WITHOUT CONTRAST HISTORY: Drug overdose. Seizure. TECHNIQUE: Multiplanar multisequence MRI of the brain was performed both before and after the intrave nous administration of contrast. COMPARISON STUDY: Head CT 08/06/2021. FINDINGS: There are no areas of restricted diffusion to suggest acute infarction. Incidental note is made of a partially empty sella. The remaining midline structures are intact. The paranasal sinuses a re clear. A few opacified left inferior mastoid air cells. The right mastoid air cells are clear. Nona dence for prior bilateral lens removal. There are few scattered punctate foci of T2 hyperintensity se en within the periventricular and subcortical white matter of the supratentorial brain. These are non specific but favor mild microvascular ischemic change. Migraines or less likely a demyelinating disea se could also have a similar appearance.. There are mild atrophic changes within the brain. There is no mass, hematoma, midline shift. The major vascular flow-voids at the skull base are well maintained . Postcontrast sequences show no areas of abnormal enhancement. The temporal lobes are symmetric. IMPRESSION: 1. No acute infarct or intracranial hemorrhage. 2. Mild atrophy and presumed mild microvascular ischemic change. ACT 112: Negative or not required by law. Electronically signed by: Michelet Bernabe M.D. 08/09/2021 11:55 AM
--- NOTE | 2021-08-09 14:53 | Hospitalist Progress Note ---
Date of Service August 09, 2021 Assessment & Plan (1) Seizure: (2) Overdose: (3) Prolonged QT interval: Plan: Intentional drug overdose. Present on admission after found confused an drowsiness at home Patient most have taken a handful of Seroquel and amitriptyline (Seroquel and amitriptyline empty bottles found at home) Urine drug screen also showing opioid and marijuana so far Poison control was contacted recommended to monitor electrolytes and serial EKG for QT prolonged EKG today with QTC 470 I reviewed her EKG back in 2016, her QTC was always above 470 Psych on board Will discontinue one-to-one observation as per psych Case discussed with psych that recommended to resume Amitriptyline and Seroquel on Friday OK from psych standpoint to discharge home Will need outpatient follow up with psych QTC prolongation EKG showing prolonged QT corrected of 638, increased from 512 Repeat EKG this morning showed QT interval decrease to 490s Cardiology on board Continue monitor electrolytes Seizure As documented patient had an episode of seizure in the ER Received IV Keppra and Ativan in the ER Neuro on board Continue Keppra 500 mg twice daily MRI of the brain showed No acute infarct or intracranial hemorrhage. Mild atroph y and presumed mild microvascular ischemic change. Will discontinue Keppra since MRI negative as per my discussion with neuro Continue Ativan as needed and seizure precaution no driving for 6 months from last seizure date, no heights, no bathing or swimming alone Continue gabapentin as per neuro recommendation Electrolyte abnormality Electrolytes stable with potassium 3.9 and magnesium 1.9 Continue monitor electrolytes History of diabetes. Continue to hold hold home metformin placed on insulin sliding scale. Depression: Currently holding all home medications, once stable management as per Psychiatry. Hyperlipidemia: On statin. Gastroesophageal reflux disease: On Protonix. Currently, holding all oral medications. History of irritable bowel syndrome, constipation. Currently, holding her home medications and restart when the patient is stable. Deep venous thrombosis prophylaxis: Sequential compression devices. Disposition Will discharge home today Admission and Anticipated Discharge Date Admission Date: August 07, 2021 Subjective Patient was seen and examined for follow-up of lethargy and drowsiness due to Seroquel overdose Lying in bed with no acute distress with one-to-one sitter She said that she feels fine She was very happy when she found out that she is going home today She denies any chest pain, palpitation, dizziness, hallucination, and suicidal ideation Review of Systems Review of Systems: All systems reviewed & are unremarkable except as noted in Subjective Physical Exam Physical Exam: General- No acute distress Head- atraumatic Eyes- PERRL, EOMI, ENT- oropharynx clear Neck- supple, no JVD Lungs- clear to auscultation Heart- regular rhythm; no murmur Abdomen- normal bowel sounds, soft, nontender Extremities- no calf tenderness Neuro- alert, oriented x 3; PERRL, EOMI; no facial palsy; no dysarthria Skin- warm & dry Results & Data Results & Data ([facility]) Vital Signs (Past 12 Hours) Vital Signs Temp Pulse Pulse Resp BP Pulse Ox 08/09/21 12:17 36.7 C 82 18 143/91 H 99 08/09/21 07:55 36.7 C 80 20 129/89 97 08/09/21 04:02 77 08/09/21 04:00 36.6 C 75 20 136/86 96 (1) Overdose Encounter type: initial encounter Injury intent: undetermined intent Qualified Code(s): T50.904A - Poisoning by unspecified drugs, medicaments and biological substances, undetermined, initial encounter
--- NOTE | 2021-08-20 23:01 | Discharge Summary ---
Date of Service August 09, 2021 Admission HPI Per Admitting Provider CHIEF COMPLAINT: Intentional drug overdose. HISTORY OF PRESENT ILLNESS: A 56-year-old female with past medical history significant for type 2 diabetes, hyperlipidemia, history of QT prolongation, history of GERD, history of slow transit constipation, nonalcoholic fatty liver disease, irritable bowel syndrome with constipation, history of TMJ, history of moderate recurrent depression, history of seizure, was brought in because of drug overdose. The patient was found acting strange and falling today at home. Patient has history of drug overdose as per daughter and when checked they found empty Seroquel bottle and also amitriptyline bottle has only few tablets, both tablets were recently filled . As per the ER, she might have taken 30 Seroquel 300mg tablets.. In the ER, she was having expressive aphasia. Imaging studies were unremarkable. Poison control was contacted and recommended supportive care. She has episode of emesis and 30 seconds of seizure in the ER and she was given 1 mg of IV Ativan and also Keppra. Currently, postictal or sedated from the Ativan and she is sleeping, drowsy, unarousable.When woken can tell her name, but she her speech is garbled. Hemodynamically stable. EKG showed QTc of 512, but she also has a history of QT prolongation. Poison control thinks the seizure could be from the Seroquel as per the ER. Could not get much history from the patient currently. Admission Exam Per Admitting Provider GENERAL: The patient is drowsy. Speech is garbled. VITAL SIGNS: Temperature 36.6, pulse 77, respiratory rate 15, blood pressure 140/83, oxygen 98% on room air. HEENT: Atraumatic. No facial droop. NECK: No JVD, no neck masses. CARDIOVASCULAR: S1 and S2 heard. Regular rate and rhythm. No murmur, no gallop. RESPIRATORY SYSTEM: Normal AP diameter. No accessory muscle use. No wheezing, no crackles. ABDOMEN: Soft, bowel sounds present, nontender, no distention. CENTRAL NERVOUS SYSTEM: Currently drowsy. Whenever awaken could tell her name. Speech is garbled. No facial droop. Moves extremities. EXTREMITIES: No edema, no erythema. Principal Diagnosis Seizure: Overdose: Prolonged QT interval: Intentional drug overdose. QTC prolongation Seizure Electrolyte abnormality Depression: Hyperlipidemia Gastroesophageal reflux disease Discharge Exam General- No acute distress Head- atraumatic Eyes- PERRL, EOMI, ENT- oropharynx clear Neck- supple, no JVD Lungs- clear to auscultation Heart- regular rhythm; no murmur Abdomen- normal bowel sounds, soft, nontender Extremities- no calf tenderness Neuro- alert, oriented x 3; PERRL, EOMI; no facial palsy; no dysarthria Skin- warm & dry Discharge Data Allergies Allergy/AdvReac Type Severity Reaction Status Date / Time metoclopramide Allergy Intermediate "NEURO Verified 11/16/18 14:34 COMPLICATIONS" ondansetron Allergy Unknown HEART RACES Verified 08/08/21 20:06 Penicillins Allergy Unknown UNKNOWN Verified 11/16/18 14:34 erythromycin base AdvReac Unknown NAUSEA Verified 11/16/18 14:34 Consultations 08/07/21 01:26 ED Decision to Admit Stat 08/07/21 08:00 Consult Neurology Routine Consult Psychiatry Routine 08/07/21 10:05 Consult Cardiology Routine Ordered Studies 08/06/21 23:40 CT head/brain wo con Urgent 08/09/21 00:00 MR brain wo/w con Routine Brain MRI WITH AND WITHOUT CONTRAST HISTORY: Drug overdose. Seizure. TECHNIQUE: Multiplanar multisequence MRI of the brain was performed both before and after the intravenous administration of contrast. COMPARISON STUDY: Head CT 08/06/2021. FINDINGS: There are no areas of restricted diffusion to suggest acute infarction. Incidental note is made of a partially empty sella. The remaining midline structures are intact. The paranasal sinuses are clear. A few opacified left inferior mastoid air cells. The right mastoid air cells are clear. Evidence for prior bilateral lens removal. There are few scattered punctate foci of T2 hyperintensity seen within the periventricular and subcortical white matter of the supratentorial brain. These are nonspecific but favor mild microvascular ischemic change. Migraines or less likely a demyelinating disease could also have a similar appearance.. There are mild atrophic changes within the brain. There is no mass, hematoma, midline shift. The major vascular flow-voids at the skull base are well maintained. Postcontrast sequences show no areas of abnormal enhancement. The temporal lobes are symmetric. IMPRESSION: 1. No acute infarct or intracranial hemorrhage. 2. Mild atrophy and presumed mild microvascular ischemic change. ACT 112: Negative or not required by law. Electronically signed by: Michelet Bernabe M.D. 08/09/2021 11:55 AM Dictated:08/09/21 1147 Transcribed: 08/09/[address] head/brain wo con CLINICAL HISTORY: abnormal speech Technique: Contiguous axial CT images of the head were acquired from the base of the skull to the vertex without intravenous contrast administration. Images were viewed in brain, subdural and bone windows. Automated dose lowering techniques and/or adjustment according to patient size were utilized for this exam. Comparison: Comparison is made to CT head 02/08/2007 Findings: The ventricles, basal cisterns, and cerebral sulci are normal. There is no acute intracranial hemorrhage or evidence of acute territorial infarction. Neither mass effect, shift of the midline structures, nor abnormal extra-axial fluid collections are shown. Imaged portions of the paranasal sinuses and mastoid air cells are clear. The orbits appear normal. There are no acute fractures of the calvaria or scalp swelling. Impression: No acute intracranial hemorrhage, no evidence of acute territorial infarction or other acute intracranial disease process. ACT 112: Negative or not required by law. Electronically signed by: Clyde Bright M.D. 08/07/2021 8:17 AM Dictated:08/07/21810 Transcribed: 08/07/21810 Hospital Course (1) Seizure: (2) Overdose: (3) Prolonged QT interval: Intentional drug overdose. Present on admission after found confused an drowsiness at home Patient most have taken a handful of Seroquel and amitriptyline (Seroquel and amitriptyline empty bottles found at home) Urine drug screen also showing opioid and marijuana so far Poison control was contacted recommended to monitor electrolytes and serial EKG for QT prolonged EKG today with QTC 470 I reviewed her EKG back in 2016, her QTC was always above 470 Psych on board Will discontinue one-to-one observation as per psych Case discussed with psych that recommended to resume Amitriptyline and Seroquel on Friday OK from psych standpoint to discharge home Will need outpatient follow up with psych QTC prolongation EKG showing prolonged QT corrected of 638, increased from 512 Repeat EKG this morning showed QT interval decrease to 490s Cardiology on board Continue monitor electrolytes Seizure As documented patient had an episode of seizure in the ER Received IV Keppra and Ativan in the ER Neuro on board Continue Keppra 500 mg twice daily MRI of the brain showed No acute infarct or intracranial hemorrhage. Mild atrophy and presumed mild microvascular ischemic change. Will discontinue Keppra since MRI negative as per my discussion with neuro Continue Ativan as needed and seizure precaution no driving for 6 months from last seizure date, no heights, no bathing or swimming alone Continue gabapentin as per neuro recommendation Electrolyte abnormality Electrolytes stable with potassium 3.9 and magnesium 1.9 Continue monitor electrolytes History of diabetes. Continue to hold hold home metformin placed on insulin sliding scale. Depression: Currently holding all home medications, once stable management as per Psychcorinna carter. Hyperlipidemia: On statin. Gastroesophageal reflux disease: On Protonix. Currently, holding all oral medications. History of irritable bowel syndrome, constipation. Currently, holding her home medications and restart when the patient is stable. Deep venous thrombosis prophylaxis: Sequential compression devices. Disposition Will discharge home today Total Time Total Time Spent Total Time Spent (In Minutes): 35 minutes Discharge Plan Discharge Items Patient Disposition: Home - Self-Care Reason For Visit: Overdose Discharge Diagnosis: Seizure: Overdose: Prolonged QT interval: Intentional drug overdose. QTC prolongation Seizure Electrolyte abnormality Depression: Hyperlipidemia Gastroesophageal reflux disease: Activity: Resume your previous activity Non-emergency contact: Primary Care Provider Call non-emergency contact if: you have any medication questions Follow-up/Referrals: Fatou Dailey MD [Primary Care Provider] - (Date & Time 08/13/2021 11:00 AM Provider Fatou Dailey MD Department General Internal Medicine [facility] ) Katja Hurtado MD [Outside Practitioners] - 09/04/21 10:00 am Diet: Heart Healthy Addtl Attending Provider Instructions: Follow up with your primary care provider Dr. Dailey on 08/13/2021 at 11:00 AM at the General Internal Medicine [facility] Follow up with Psychiatry Dr. Hurtado on 09/04/21 on 10AM Follow up with the psych therapist on 08/23 @ 11:30 am No driving, no heights, no bathing or swimming alone for 6 months from last seizure date Fall and seizure precaution Ok to resume your Seroquel and Amitriptyline on Friday Seek medical attention if your symptoms reoccur Pending Studies at Discharge: No Stand-Alone Forms: My [facility] Answerology, Smoking Cessation Medications and DC Order Prescriptions: Continued cyclobenzaprine 10 mg tablet 10 mg PO BID PRN (Reason: Muscle Spasm) RF: 0 atorvastatin 40 mg tablet 40 mg PO QAM RF: 0 quetiapine 300 mg tablet 300 mg PO HS RF: 0 doxepin 25 mg capsule 25 mg PO HS RF: 0 gabapentin 400 mg capsule 400 mg PO TID RF: 0 aspirin 81 mg Tablet,Delayed Release (Dr/Ec) 81 mg PO QAM RF: 0 quetiapine 100 mg tablet 100 mg PO BID RF: 0 dicyclomine 20 mg tablet 20 mg PO BID PRN (Reason: ibs) RF: 0 pantoprazole 40 mg tablet,delayed release (DR/EC) 40 mg PO QAM RF: 0 metformin 1,000 mg tablet 1,000 mg PO BIDM RF: 0 ranitidine HCl 150 mg tablet 150 mg PO BID RF: 0 naproxen sodium [Aleve] 220 mg Tablet 440 mg PO UD RF: 0 promethazine 25 mg tablet 25 mg PO Q8H PRN (Reason: Nausea And Vomiting) RF: 0 zolpidem 5 mg tablet 5 mg PO HS PRN (Reason: Sleep) RF: 0 amitriptyline 100 mg tablet 100 mg PO HS RF: 0 lubiprostone 24 mcg capsule 24 mcg PO BID RF: 0 Vicks NyQuil Cold/Flu Liquicap 6.25-15-325 mg Capsule 2 tab PO UD RF: 0 promethazine 12.5 mg tablet 12.5 mg PO TID PRN (Reason: nausea) Qty: 10 RF: 0 Discharge Orders: Discharge Order (Routine); Ordered 08/09/21 Ordered By: Rosa Elena Oliveira/Other Patient Handouts: ED Seizure New Onset Unknown ... Admission Data Admit Date/Time: 08/07/21 03:11 Attending Provider: Rosa Elena Banda Admit Provider: Giovanni Sánchez Primary Care Provider: Fatou Dailey Other Providers: Giovanni Sánchez ; Madhavi Zayas ; Jes Ellison ; Wendi Moe ; Kamini Hector ; Jovan Connor ; Bhavesh Jin ; Sandor Bagley Other Interventions: Discharge Summary Assessment (RN) Last Done: 08/09/21 16:24
== END 2021-08-09 18:36 | disposition home or self-care (01) | DRG 918 ==
LOC: ED 21:15 → SUATTDRO 08-07 03:11 → EDINP 08-07 03:11 → 2S 08-07 10:03

== ENCOUNTER 2023-08-14 17:52 | Observation (INO) ==
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
--- OUTSIDE RECORDS SUMMARY | 2023-08-14 17:59 | External Medical Summary | Summary of Care ---
Author Name Unknown Organization [facility] Address [address] [facility] [place] [address] Phone [phone] Care Team Providers Care Endorsement Clerk Name Role Phone Fatou Dailey MD Primary Care Provider [phone] Reason for Visit * Reason Comments Outpatient Testing Encounter Details Date Type Department Care Team Description 05/29/2023 Laboratory Laboratory [address] [place] [id number] [place] [address] DM type 2, not at goal (HCC); [...] Additional Information Patient not taking.Reported on 01/06/2023 Antenna Delica Lancets 30GIndications:Type 2 diabetes mellitus with [...] before bedtime. 270 Capsule 3 11/07/2022 Active Antenna Verio w/Device Kit Use up to 2 times a day E11.9 1 Kit 0 11/25/2022 Active Antenna Verio In Vitro Strip (Glucose Blood)Indications:Type 2 [...] mRNA, LNP-s, No Pre serve, 2-Dose Series ([employer]) 02/07/2021,01/17/2021 Covid-19, Mrna, Lnp-s, Pf, B ivalent, 30 Mcg, IM, 12 yrs and above (Pfizer) 07/11/2022 Hepatitis B, 20+ yrs 06/20/2015,01/12/2015,11/21 Pneumococcal Conjugate Vacci ne, 20-valent ([id number]) 09/02/2022 Pneumococcal Polysaccharide PPV23 (Pneumovax) 12/13/2011 Seasonal [...] Madhavi Jones PA-C [address] [place] [address] 07/10/2023 Office Visit Internal Medicine Fatou Dailey MD 200 [facility] [place] [address] Pending Results Name Type Priority Associated Diagnoses Date /Time CBC WITH WBC DIFFERENTIAL Lab Routine DM type 2, not at goal (HCC) Dyslipidemia, goal LDL below 160 Malaise and fatigue Vitamin D deficiency 05/29/2023 2:53 PM EDT COMPREHENSIVE METABOLIC PANEL Lab Routine DM type 2, not at goal ([facility]) Dyslipidemia, goal LDL below 160 Malaise and fatigue Vitamin D deficiency 05/29/2023 2:53 PM EDT LIPID PANEL WITH DIRECT LDL IF TG IS HIGH Lab Routine DM type 2, not at goal ([facility]) Dyslipidemia, goal LDL below 160 Malaise and fatigue Vitamin D deficiency 05/29/2023 2:53 PM EDT TSH Lab Routine DM type 2, not at goal ([facility]) Dyslipidemia, goal LDL below 160 Malaise and fatigue Vitamin D deficiency 05/29/2023 2:53 PM EDT T4, FREE Lab Routine DM type 2, not at goal ([facility]) Dyslipidemia, goal LDL below 160 Malaise and fatigue Vitamin D deficiency 05/29/2023 2:53 PM EDT HEMOGLOBIN A1C Lab Routine DM type 2, not at goal ([facility]) Dyslipidemia, goal LDL below 160 Malaise and [...] deficiency documented in this encounter Care Teams Endorsement Clerk Relationship Specialty Start Date End Date Fatou Dailey MD [address] [place] [address] PCP - General Internal Medicine 10/22/13 documented as of this encounter
--- OUTSIDE RECORDS SUMMARY | 2023-08-14 17:59 | External Medical Summary | Summary of Care ---
Author Name Unknown Organization [facility] Address [address] [place] [address] Phone [phone] Care Team Providers Care Process Cheese Cooker Name Role Phone Fatou Dailey MD Primary Care Provider [phone] Reason for Visit * Reason Onset Date Comments Advice 07/11/2023 Applying for dis ability? Encounter Details Date Type Department Care Team (Late st Contact Info) Description 07/11/2023 Telephone Neurology [facility] [address] [place], [place] [id number] Services, Scheduling [address] [place] [address] Advice (Applying for disability?) Allergies Active Allergy Reactions Criticality Noted Date [...] mRNA, LNP-s, No Pre serve, 2-Dose Series ([employer]) 02/07/2021,01/17/2021 Covid-19, Mrna, Lnp-s, Pf, B ivalent, 30 Mcg, IM, 12 yrs and above ([employer]) 07/11/2022 Hepatitis B, 20+ yrs 06/20/2015,01/12/2015,11/21 Pneumococcal Conjugate Vacci ne, 20-valent ([id number]) 09/02/2022 Pneumococcal Polysaccharide PPV23 (Pneumovax) 12/13/2011 SEASONAL [...] encounter Miscellaneous Notes * Telephone Encounter - KRISTY Harris - 07/11/2023 12:36 PM EDT Spoke to pt and made her aware that we do not do much with disability or people applying that is upto the patient. If she has paper work that needs completed she can bring it to the office and we can review them/fill out. Pt appreciated the call. * Telephone Encounter - LAILA Iyer - 07/11/2023 9:07 AM EDT Patient is calling to see if she can apply for disability. Can someone help with this? Thank you. documented in this encounter Plan of Treatment Upcoming Encounters Date Type Department Care Team (Late st Contact Info) Description 01/12/2024 1:40 PM EDT Office Visit General Internal Medicine [place] [address] [place] [address] Fatou Dailey MD [address] [facility] [place] [address] Health Maintenance Due Date Last Done Comments [...] Not on filedocumented as of this encounter Care Teams Process Cheese Cooker Relationship Specialty Start Date End Date Fatou Dailey MD [address] [place] [address], [place] [address] PCP - General Internal Medicine 10/22/13 documented as of this encounter
--- OUTSIDE RECORDS SUMMARY | 2023-08-14 17:59 | External Medical Summary ---
Author Name Unknown Address Unknown Organization : Laboratory Report Ordering Provider Test Date Status SOY TRISTAN 05/29/2023 14:53:54 Final Observation Date Value Abnormality Reference (Units ) Status 1,25-Dihydroxyvitamin D [Mass/volume] in Serum or Plasma 05/29/2023 14:53:54 31 18-72 (pg/mL) Final Calcitriol [Mass/volume] in Serum or Plasma 05/29/2023 14:53:54 31 (pg/mL) Final 1,25-Dihydroxyvitamin D2 [Mass/volume] in Serum or Plasma 05/29/2023 14:53:54 <8 (pg/mL) Final Vitamin D3, 1,25(OH)2 indica talya both endogenous
production and supplementation. Vitamin D2, 1,25(OH)2
is an indicator of exogenous sources, such as diet or
supplementation. Interpretation and therapy are based
on measurement of Vitamin D,1,25(OH)2, Total.
This test was developed and its analytical
performance characteristics have been determined
by [facility], [place], [place].
It has not been cleared or approved by the FDA. This
assay has been validated pursuant to the CLIA
regulations and is used for clinical purposes.

Test Performed at:
[facility]
[id number] [facility]
[place], [place]
Michelet Griffin M.D., Ph.D.,Director of Laboratories Performing Location
--- OUTSIDE RECORDS SUMMARY | 2023-08-14 17:59 | External Medical Summary ---
Author Name Unknown Address Unknown Organization : Laboratory Report Ordering Provider Test Date Status DAVE BEARD 07/10/2023 14:38:42 Final Observation Date Value Abnormality Reference (Units ) Status Gabapentin (Neurontin) level 07/10/2023 14:38:42 8.0 (mcg/mL) Final Reference ranges for Gabapen tin:
2.7-4.1 mcg/mL (peak) following a single dose of
900-1800 mg/day.
4.0-8.5 mcg/mL (peak) following a multiple dose of
900-1800 mg/day administration.
The reference range is evolving. Seizure control
has been observed at levels in excess of 4 mcg/mL.
This test was developed and its analytical performance
characteristics have been determined by [facility] [place], [place]. It has
not been cleared or approved by the U.S. Food and Drug
Administration. This assay has been validated pursuant
to the CLIA regulations and is used for clinical
purposes.

Test Performed at:
[facility]
[address] [facility]
[place] [address]
Michelet Griffin M.D., Ph.D.,Director of Laboratories Performing Location
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
--- OUTSIDE RECORDS SUMMARY | 2023-08-14 17:59 | External Medical Summary | Summary of Care ---
Author Name Unknown Organization [facility] Address [address] [facility] [place] [address] Phone [phone] Care Team Providers Care Loan Servicing Specialist Name Role Phone Fatou Dailey MD Primary Care Provider [phone] Reason for Visit * Reason Onset Date Comments Follow Up 6 month. Medication Administration 07/10/2023 Flu an d/or Pneumo Inj Encounter Details Date Type Department Care Team Description 07/10/2023 Office Visit General Internal Medicine [facility] [address] [facility] [place] [id number] Barry Edwards PA-C [address] [place] [address] Bandemia*; Type 2 diabetes mellitus with hemoglobin A1c goal of less than 7.0% ([facility]); DM type 2 with diabetic peripheral neuropathy ([facility]); Statin intolerance; Hyperlipidemia with target LDL less than 100; Gastroesophageal reflux disease without esophagitis; Irritable bowel syndrome with constipation; Nonalcoholic fatty liver disease; Empty sella syndrome ([facility]); Seizure disorder ([facility]); Severe episode of recurrent major depressive disorder, without psychotic features (HCC); Need for prophylactic vaccination and inoculation against influenza Allergies Active Allergy Reactions Severity Noted Date [...] E 11.9 100 Strip 5 3 Active Dicyclomine HCl 20 MG Oral Tablet (Bentyl)Indications:I rritable bowel syndrome with constipation TAKE 1 TABLET BY MOUTH TWICE A DAY FOR ABDOMINAL PAIN STRENGTH: 20 MG 180 Tablet 1 3 Active metFORMIN HCl 1000 MG Oral [...] hemoglobin A1c goal of less than 7.0% ([facility]),Hyperlipidemia with target LDL less than 100 TAKE 1 TABLET BY MOUTH EVERY DAY WITH FOOD 90 Tablet 0 3 Active Cyclobenzaprine HCl 10 MG Oral Tablet (Flexeril)Indications :TMJ (sprain of temporomandibular joint), subsequent encounter TAKE 1 TABLET BY MOUTH TWICE A DAY NEEDED FOR MUSCLE SPASM 60 Tablet 5 3 Active B-12 1000 MCG Oral TabletIndications:Vit lizarraga B 12 deficiency Take by mouth 1,000 mcg daily . 90 Tablet 3 2 07/10/20 23 Discontinued documented as of this encounter [...] mRNA, LNP-s, No Pre serve, 2-Dose Series (Pfizer) 02/07/2021,01/17/2021 Covid-19, Mrna, Lnp-s, Pf, B ivalent, 30 Mcg, IM, 12 yrs and above (Pfizer) 07/11/2022 Hepatitis B, 20+ yrs 06/20/2015,01/12/2015,11/21 Pneumococcal Conjugate Vacci ne, 20-valent ([id number]) 09/02/2022 Pneumococcal Polysaccharide PPV23 (Pneumovax) 12/13/2011 SEASONAL [...] Time Taken Comments Blood Pressure 98/62 07/10/2023 2:08 PM EDT Pulse 81 07/10/2023 2:08 PM EDT Temperature 37.3 C (99.1 F) 07/10/2023 2:08 PM ED T Respiratory Rate - - Oxygen Saturation 99% 07/10/2023 2:08 PM EDT Inhaled Oxygen Concentration - - Weight 75 kg (165 lb 6.4 oz) 07/10/2023 2:08 PM EDT Height 162.6 cm (5' 4") 07/10/2023 2:08 PM EDT Body Mass Index 28.39 07/10/2023 2:08 PM EDT documented in this [...] as of this encounter Progress Notes * Barry Edwards PA-C - 07/10/2023 2:32 PM EDT Subjective: Lorrie Handy is a 58 year old female. Chief Complaint Patient presents with Follow Up 6 month. Medication Administration Flu and/or Pneumo Inj HPI: 58 y/o female with depression, seizure disorder, GERD, headaches, fatty liver, hyperlipidemia with statin intolerance, seizure disorder, empty sella syndrome seen today for follow up. Increased depression recently secondary to having to put her dog down two weeks ago. Has been struggling somewhat with this process. No suicidal plans. Denies chest pain, SOB, STAR[place]. Some non-specific dizziness which seems to be terminal clerk. Bad illness two weeks ago that resolved and feeling better now PMH: Patient Active Problem List Diagnosis Code Severe episode of recurrent major depressive disorder, without psychotic features ([facility]) F33.2 Gastroesophageal reflux disease without esophagitis K21.9 BMI 24.0-24.9, adult Z68.24 Slow transit constipation K59.01 QT prolongation R94.31 TMJ (sprain of temporomandibular joint) S03.40XA Tension headache G44.209 Type 2 diabetes mellitus with hemoglobin A1c goal of less than 7.0% ([facility]) E11.9 Nonalcoholic fatty liver disease K76.0 Hyperlipidemia with target LDL less than 100 E78.5 DM type 2 with diabetic peripheral neuropathy ([facility]) E11.42 Irritable bowel syndrome with constipation K58.1 Lipoma of right upper extremity D17.21 Empty sella syndrome ([facility]) E23.6 Statin intolerance Z78.9 Seizure disorder ([facility]) G40.909 Current Outpatient Medications Medication Sig Dispense Refill ONETOUCH ULTRASOFT LANCETS MIS Use as directed 3 times a day. [...] Neuro complications (Please comment) Involuntary muscle twitches All other review of systems reviewed and negative other than mentioned in HPI. Objective: BP 98/62 | Pulse 81 | Temp 37.3 C (99.1 F) | Ht 1.626 m (5' 4") | Wt 75 kg (165 lb 6.4 oz) | LMP 07/12/2016 | SpO2 99% | BMI 28.39 kg/m | BSA 1.84 m Results for orders placed or performed in visit on 05/29/23 COMPREHENSIVE METABOLIC PANEL Result Value Ref Range BUN 14 6 - 20 mg/dL Creatinine 1.1 (H) 0.5 - 1.0 mg/dL Estimated Glomerular Filtration Rate 56 (L) >=60 mL/min Sodium 141 135 - 146 mmol/L Potassium 4.4 3.5 - 5.1 mmol/L Chloride 107 98 - 107 mmol/L CO2 21 (L) 22 - 32 mmol/L Anion Gap 13 7 - 15 mmol/L Glucose 103 70 - 120 mg/dL Albumin 4.6 3.8 - 5.0 g/dL AST 19 10 - 35 U/L Alkaline Phosphatase 101 35 - 130 U/L Bilirubin, Total 0.2 <=1.2 mg/dL Calcium 9.5 8.4 - 10.2 mg/dL Protein 7.0 6.0 - 8.3 g/dL ALT 11 10 - 35 U/L LIPID PANEL WITH DIRECT LDL IF TG IS HIGH Result Value Ref Range Triglycerides 143 <=174 mg/dL Cholesterol 216 (H) <200 mg/dL HDL Cholesterol 55 >49 mg/dL Non-HDL Cholesterol 161 (H) <=159 mg/dL LDL Cholesterol 132 (H) <=129 mg/dL TSH Result Value Ref Range TSH 2.20 0.27 - 4.20 uIU/mL T4, FREE Result Value Ref Range T4, Free 0.9 0.9 - 1.7 ng/dL HEMOGLOBIN A1C Result Value Ref Range Hemoglobin A1C 5.9 (H) 4.0 - 5.6 % Estimated Average Glucose 123 <126 mg/dL 1,25-DIHYDROXY VITAMIN D Result Value Ref Range Vitamin D,1,25 (OH)2,Total 31 18 - 72 pg/mL Vitamin D3,1,25 (OH)2 31 pg/mL Vitamin D2,1,25 (OH)2 <8 pg/mL CBC Result Value Ref Range WBC 11.30 (H) 4.00 - 10.80 K/uL RBC 4.24 3.85 - 5.15 M/uL HGB 13.4 12.0 - 15.3 g/dL HCT 43.4 36.0 - 45.2 % MCV 102.4 81.5 - 97.5 fL MCH 31.6 27.0 - 34.0 pg MCHC 30.9 32.0 - 36.0 g/dL RDW 14.6 11.5 - 15.5 % PLT 291 140 - 400 K/uL MPV 9.6 6.6 - 11.1 fL nRBCs 0 <=0 /100 WBCs DIFFERENTIAL, AUTOMATED Result Value Ref Range WBC 11.30 (H) 4.00 - 10.80 K/uL Neutrophils % 65.1 40.0 - 75.0 % Lymphocytes % 28.5 18.0 - 42.0 % Monocytes % 4.4 1.0 - 11.0 % Eosinophils % 1.1 0.0 - 6.0 % Basophils % 0.6 0.0 - 2.0 % Immature Granulocytes % 0.3 0.0 - 2.0 % Absolute Neutrophils 7.36 1.80 - 7.70 K/uL Absolute Lymphocytes 3.22 1.00 - 4.80 K/ul Absolute Monocytes 0.50 0.00 - 1.10 K/uL Absolute Eosinophils 0.12 0.00 - 0.70 K/uL Absolute Basophils 0.07 0.00 - 0.20 K/uL Absolute Immature Granulocytes 0.03 0.00 - 0.20 K/uL *Note: Due to a large number of results and/or encounters for the requested time period, some results have not been displayed. A complete set of results can be found in Results Review. Physical Exam Constitutional: General: She is not in acute distress. Appearance: Normal appearance. She is normal weight. She is not ill-appearing or toxic-appearing. HENT: Head: Normocephalic and atraumatic. Right Ear: Tympanic membrane normal. Left Ear: Tympanic membrane normal. Mouth/Throat: Mouth: Mucous membranes are moist. Pharynx: Oropharynx is clear. No oropharyngeal exudate or posterior oropharyngeal erythema. Eyes: Extraocular Movements: Extraocular movements intact. Conjunctiva/sclera: Conjunctivae normal. Pupils: Pupils are equal, round, and reactive to light. Neck: Vascular: No carotid bruit. Cardiovascular: Rate and Rhythm: Normal rate and regular rhythm. Heart sounds: Normal heart sounds. No murmur heard. No friction rub. No gallop. Pulmonary: Effort: Pulmonary effort is normal. Breath sounds: Normal breath sounds. No wheezing, rhonchi or rales. Abdominal: General: Bowel sounds are normal. There is no distension. Palpations: Abdomen is soft. There is no mass. Tenderness: There is no abdominal tenderness. There is no guarding or rebound. Lymphadenopathy: Cervical: No cervical adenopathy. Neurological: Mental Status: She is alert. ASSESSMENT: Bandemia (Primary) - CBC; Future; Expected date: 07/10/2023 Repeat. Most likely elevated secondary to illness. Type 2 diabetes mellitus with hemoglobin A1c goal of less than 7.0% (HCC) At goal. Just had eye exam a couple weeks ago. Continue aspirin and metformin DM type 2 with diabetic peripheral neuropathy (HCC) Gabapentin and elavil. Statin intolerance Discussed mediterranean style diet. Declined zetia. Hyperlipidemia with target LDL less than 100 As above. Gastroesophageal reflux disease without esophagitis Irritable bowel syndrome with constipation Nonalcoholic fatty liver disease LFT good. Diet as above. Empty sella syndrome (HCC) Stable on previous imaging. Seeing neurology. Seizure disorder (HCC) Following with neurology Severe episode of recurrent major depressive disorder, without psychotic features (HCC) Grieving currently. Offered psychiatry services, but decline.s Need for prophylactic vaccination and inoculation against influenza - INFLUENZA VACC, QUAD, PF, 6 MONTHS & UP, 0.5 ML, IM Follow Up: Return in about 6 months (around 01/09/2024), or if symptoms worsen or fail to improve, for Return with Physician. | For: Return with Physician Barry Edwards PA-C * Tequila Delarosa LPN - 07/10/2023 2:09 PM EDT PRE - ADMINISTRATION DOCUMENTATION Are you experiencing any cold symptoms or fever? No Have you had Guillain-Girard Syndrome (an illness that causes paralysis) within the last 6 weeks? No Have you had the flu shot in the past? YES Have you ever had a reaction to the flu shot? No Tequila Delarosa LPN, 07/10/2023 2:09 PM Immunization Administration Documentation Time Out Procedure Performed: Yes Patient Identified (Ask Name/Date of ): Yes Does the patient have a fever greater than 101 degrees today? No Patient allergic to latex? No VFC Stock: No Immunization(s) verified: Yes, Immunization Name: Flu, VIS Sheet(s) given: Yes Verified Side and Site: Yes Verified Shot(s) with Parent(s)/Patient: Yes documented in this encounter Nursing Notes * Tequila Delarosa LPN - 07/10/2023 2:07 PM EDT Chief Complaint Patient presents with Follow Up 6 month. documented in this encounter Plan of Treatment Upcoming Encounters Date Type Specialty Care Team Description 01/12/2024 Office Visit Internal Medicine Fatou Dailey MD [address] [facility], [place] [address] Health Maintenance Due Date Last Done Comments Depression, Most Recent Score >= 10 (will fire each visit until score < 10) 01/01/2022 12/31/2021 COVID-19 Vaccine (4 - 2023-24 season) 2023 07/11/2022, 02/07/2021, 01/17/2021 DIABETES-EYE EXAM [...] Not on filedocumented as of this encounter Results * CBC (07/10/2023 2:38 PM EDT) WBC 9.55 4.00 - 10.80 K/uL 07/10/2023 2:49 PM EDT [facility] 56-02 RBC 3.97 3.85 - 5.15 M/uL 07/10/2023 2:49 PM EDT [facility] 56-02 HGB 12.5 12.0 - 15.3 g/dL 07/10/2023 2:49 PM EDT [facility] 56- HCT 40.7 36.0 - 45.2 % 07/10/2023 2:49 PM EDT [facility] 56- MCV 102.5 81.5 - 97.5 fL 07/10/2023 2:49 PM EDT [facility] 56- MCH 31.5 27.0 - 34.0 pg 07/10/2023 2:49 PM EDT [facility] 56 MCHC 30.7 32.0 - 36.0 g/dL 07/10/2023 2:49 PM EDT [facility] 56- RDW 15.0 11.5 - 15.5 % 07/10/2023 2:49 PM EDT [facility] 56-02 PLT 285 140 - 400 K/uL 07/10/2023 2:49 PM EDT [facility] 56-02 MPV 8.9 6.6 - 11.1 fL 07/10/2023 2:49 PM EDT [facility] 56-02 Blood Venous blood specimen / Unknown Venipuncture / Unknown 07/10/2023 2:38 PM EDT 07/10/2023 2:38 PM EDT Barry Edwards PA-C LAB BLOOD ORDERABL ES [facility] 56- [address] [place] [address] documented in this encounter Visit Diagnoses Diagnosis Bandemia- Primary Type 2 diabetes mellitus with hemoglobin A1c goal of less than 7.0% (HCC) DM type 2 with diabetic peripheral neuropathy (HCC) Type II or unspecified type diabetes mellitus with neurological manifestations, not stated as uncontrolled Statin intolerance Other drug allergy Hyperlipidemia with target LDL less than 100 Other and unspecified hyperlipidemia Gastroesophageal reflux disease without esophagitis Esophageal reflux Irritable bowel syndrome with constipation Irritable bowel syndrome Nonalcoholic fatty liver disease Other chronic nonalcoholic liver disease Empty sella syndrome (HCC) 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
--- OUTSIDE RECORDS SUMMARY | 2023-08-14 17:59 | External Medical Summary ---
Author Name Unknown Address Unknown Organization [id number]:LABORATORY [facility] - [address] [facility] [place] [address] Laboratory Report Ordering Provider Test Date Status SOY TRISTAN 05/29/2023 14:53:54 Final Observation Date Value Abnormality Reference (Units ) Status SYNC LEUKOCYTES IN BLOOD BY AUTOMATED COUNT 05/29/2023 14:53:54 11.30 Above high normal 4.00-10.80 (K/uL) Final Segs 05/29/2023 14:53:54 65.1 40.0-75.0 (%) Final Lymphs % 05/29/2023 14:53:54 28.5 18.0-42.0 (%) Final Monos 05/29/2023 14:53:54 4.4 1.0-11.0 (%) Final Eosinophils 05/29/2023 14:53:54 1.1 0.0-6.0 (%) Final Basos 05/29/2023 14:53:54 0.6 0.0-2.0 (%) Final Immature Granulocyte, Percent 05/29/2023 14:53:54 0.3 0.0-2.0 (%) Final Absolute Segs 05/29/2023 14:53:54 7.36 1.80-7.70 (K/uL) Final Lymphs, absolute 05/29/2023 14:53:54 3.22 1.00-4.80 (K/ul) Final Monos, Abs 05/29/2023 14:53:54 0.50 0.00-1.10 (K/uL) Final Eos, Abs 05/29/2023 14:53:54 0.12 0.00-0.70 (K/uL) Final Basos, Abs 05/29/2023 14:53:54 0.07 0.00-0.20 (K/uL) Final Immature Granulocytes, Number 05/29/2023 14:53:54 0.03 0.00-0.20 (K/uL) Final Performing Location LABORATORY [facility] - [facility] [place] [address]
--- OUTSIDE RECORDS SUMMARY | 2023-08-14 18:00 | External Medical Summary ---
Author Name Unknown Address Unknown Organization K01:LABORATORY [facility] - [address] [place] [address] Laboratory Report Ordering Provider Test Date Status SOY TRISTAN 05/29/2023 14:53:54 Final Observation Date Value Abnormality Reference (Units ) Status T4, Free 05/29/2023 14:53:54 0.9 0.9-1.7 (n g/dL) Final Performing Location LABORATORY [facility] - [address] [place] [address]
--- OUTSIDE RECORDS SUMMARY | 2023-08-14 18:00 | External Medical Summary ---
Author Name Unknown Address Unknown Organization K01:[place] [facility] [place] [address] [facility] [place] [address] Laboratory Report Ordering Provider Test Date Status SOY TRISTAN 05/29/2023 14:53:54 Final Observation Date Value Abnormality Reference (Units ) Status BUN 05/29/2023 14:53:54 14 6-20 (mg/dL) Final Creatinine 05/29/2023 14:53:54 1.1 Above high normal 0.5-1.0 (mg/dL) Final Glomerular filtration rate/1.73 sq M.predicted [Volume Rate/Area] in Serum, Plasma or Blood by Creatinine-based formula (CKD-EPI) 05/29/2023 14:53:54 56 Below low normal >=60 (mL/min) Final eGFR is calculated based on the CKD-EPI 2020 equation SODIUM 05/29/2023 14:53:54 141 135-146 (m mol/L) Final Potassium 05/29/2023 14:53:54 4.4 3.5-5.1 (m mol/L) Final Cl 05/29/2023 14:53:54 107 98-107 (mm ol/L) Final CO2 05/29/2023 14:53:54 21 Below low normal 22- 32 (mmol/L) Final Anion gap 05/29/2023 14:53:54 13 7-15 (mmol /L) Final Glucose 05/29/2023 14:53:54 103 70-120 (mg /dL) Final Albumin 05/29/2023 14:53:54 4.6 3.8-5.0 (g /dL) Final AST (Aspartate aminotransferase) 05/29/2023 14:53:54 19 10-35 (U/L) Fin al Alk Phos 05/29/2023 14:53:54 101 35-130 (U/ L) Final Bilirubin, Total 05/29/2023 14:53:54 0.2 <=1 .2 (mg/dL) Final Calcium 05/29/2023 14:53:54 9.5 8.4-10.2 ( mg/dL) Final Protein 05/29/2023 14:53:54 7.0 6.0-8.3 (g /dL) Final ALT (Alanine aminotransferase) 05/29/2023 14:53:54 11 10-35 (U/L) Aldair jeffers Performing Location [facility] [place] [address] [facility] [address]
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
--- OUTSIDE RECORDS SUMMARY | 2023-08-14 18:00 | External Medical Summary ---
Author Name Unknown Address Unknown Organization K01:[facility]ORY [facility] [place] - [address] [facility] [address] [facility] [address] Laboratory Report Ordering Provider Test Date Status SOY TRISTAN 05/29/2023 14:53:54 Final Observation Date Value Abnormality Reference (Units ) Status WBC, Total 05/29/2023 14:53:54 11.30 Above high normal 4.00-10.80 (K/uL) Final RBC 05/29/2023 14:53:54 4.24 3.85-5.15 (M/uL) Final Hemoglobin 05/29/2023 14:53:54 13.4 12.0-15.3 (g/dL) Final HCT 05/29/2023 14:53:54 43.4 36.0-45.2 (%) Final MCV 05/29/2023 14:53:54 102.4 81.5-97.5 (fL) Final MCH 05/29/2023 14:53:54 31.6 27.0-34.0 (pg) Final MCHC 05/29/2023 14:53:54 30.9 32.0-36.0 (g/dL) Final RDW 05/29/2023 14:53:54 14.6 11.5-15.5 (%) Final Platelets 05/29/2023 14:53:54 291 140-400 (K/uL) Final MPV 05/29/2023 14:53:54 9.6 6.6-11.1 (fL) Final Nucleated erythrocytes/100 leukocytes [Ratio] in Blood by Automated count 05/29/2023 14:53:54 0 <=0 (/100 WBCs) Final Performing Location [facility]ORY [facility] [place] - [address] [place] [address]
--- OUTSIDE RECORDS SUMMARY | 2023-08-14 18:00 | External Medical Summary ---
Author Name Unknown Address Unknown Organization K01[place] [facility] [place] [address] [place] [address] Laboratory Report Ordering Provider Test Date Status SOY TRISTAN 05/29/2023 14:53:54 Final Observation Date Value Abnormality Reference (Units ) Status TSH 05/29/2023 14:53:54 2.20 0.27-4.20 (uIU/mL) Final Performing Location LABORATORY [facility] - [address] [place] [address]
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
--- OUTSIDE RECORDS SUMMARY | 2023-08-14 18:00 | External Medical Summary ---
Author Name Unknown Address Unknown Organization K01:[facility] [address] [facility] [place] [address] Laboratory Report Ordering Provider Test Date Status SOY TRISTAN 05/29/2023 14:53:54 Final Observation Date Value Abnormality Reference (Units ) Status Triglyceride 05/29/2023 14:53:54 143 <=174 ( mg/dL) Final Triglyceride Reference Range s (mg/dL):
<150 Acceptable
150-174 Borderline high
175-499 High
>=500 Very high Cholesterol 05/29/2023 14:53:54 216 Above high normal <200 (mg/dL) Final Total Cholesterol Reference Ranges (mg/dL):
<200 Desirable
200-239 Borderline high
>=240 High HDL 05/29/2023 14:53:54 55 >49 (mg/dL ) Final HDL Cholesterol Reference Ra nges (mg/dL):
>=60 High (Desirable)
<50 Low (Undesirable) For Females
<40 Low (Undesirable) For Males NON-HDL CHOLESTEROL 05/29/2023 14:53:54 161 Above high normal <=159 (mg/dL) Final Non-HDL Cholesterol Referenc e Range (mg/dL):
<100 Target level for high risk ASCVD patient
<130 Optimal for general population
130-159 Near optimal for general population
160-189 Borderline High
190-219 High
>=220 Very High LDL, (calculated) 05/29/2023 14:53:54 132 Above high n ormal <=129 (mg/dL) Final LDL Cholesterol Reference Ra nges (mg/dL):
<70 Target level for high risk ASCVD patient
<100 Optimal for general population
100-129 Near optimal for general population
130-159 Borderline high
160-189 High
>=190 Very high Performing Location LAB[facility]ATORY [facility] [place] - [address] [facility] [address]
--- OUTSIDE RECORDS SUMMARY | 2023-08-14 18:00 | External Medical Summary ---
Author Name Unknown Address Unknown Organization K01:[facility] [place] - [address] [place] [address] Laboratory Report Ordering Provider Test Date Status SOY TRISTAN 05/29/2023 14:53:54 Final Observation Date Value Abnormality Reference (Units ) Status HbA1C 05/29/2023 14:53:54 5.9 Above high normal 4. 0-5.6 (%) Final The use of HbA1c to monitor glycemic status is based on normal hemoglobin and HbA composition. This test should not be used in patients with abnormal hemoglobin that affects the half life of the red blood cell or the in vivo glycation rates. Glucose, estimated average 05/29/2023 14:53:54 123 <126 (mg/dL) Final Performing Location [facility] [place] - [address] [place] [address]
--- NOTE | 2023-08-14 18:05 | Emergency Department Note ---
Impression & Plan AMS (altered mental status), High serum chloride ED Provider Note NAME: BENEDICT LARSEN AGE: 58 SEX: F : 1965 ARRIVES VIA: Ambulance INFORMANT: Patient ED PROVIDER(S): Mina Marin DO CHIEF COMPLAINT: seizure HPI: Patient is a 58-year-old female who presents to the ER brought in by EMS for for witnessed tonic-clonic seizures. Patient notes that she feels very tired and rundown. She is not too sure if she has a seizures disorder and/or what happened today. She still is confused. She denies any headache or change in vision. No chest pain or shortness of breath. No nausea, vomiting, or diarrhea. ADDITIONAL HISTORY OBTAINED: Per HPI Chronic Medical/Social Conditions Affecting Care: Per HPI PAST MEDICAL HISTORY:See Below PAST SURGICAL HISTORY:See Below FAMILY HISTORY:See Below SOCIAL HISTORY:See Below HOME MEDICATIONS:See Below ALLERGIES:See Below VITALS:See Below PHYSICAL EXAMINATION: GENERAL: Sitting up in bed, alert, well appearing, well nourished, no distress, non-toxic EYE EXAM: normal conjunctiva. PERRL and EOM's intact. OROPHARYNX: no exudate, no erythema, lips, buccal mucosa, and tongue normal and mucous membranes are moist NECK: supple, no nuchal rigidity, no adenopathy, non-tender LUNGS: Clear to auscultation. Normal chest wall mechanics HEART: no murmurs, S1 normal and S2 normal ABDOMEN: abdomen soft, non-tender, normo-active bowel sounds, no masses, no rebound or guarding. BACK: Back is symmetrical on inspection and there is no deformity, no midline tenderness, no CVA tenderness. SKIN: no rashes and no bruising UPPER EXTREMITIES: upper extremities are grossly normal. LOWER EXTREMITIES: No pitting edema. NEURO EXAM: Oriented to person but not place or year, cranial nerves II-XII intact, normal speech, no weakness of arms, no weakness of legs. No drift. Finger to nose intact. Gross sensation intact. MEDICAL DECISION MAKING: Patient is a 58-year-old female who presents the ER confused brought in by EMS. IV was established blood work was obtained. There is report that she had 4 seizures. Labs show no significant leukocytosis or anemia. BMP with slightly elevated chloride. LFTs bilirubin and lipase was unremarkable. UA was contaminated. Tox was positive for marijuana. Alcohol negative. Patient's confusion did improve but she was still confused. CT head was negative. She did admit to smoking marijuana. Discussed with the hospitalist for further evaluation management treatment. External Records Reviewed: Patient was admitted to the hospital 08/07/2021 for seizure and drug abuse Consults/Care Managements Discussions: Per [facility] Triage Nursing notes reviewed. Limited review of prior medical records performed Vital Signs: reviewed and remarkable for no significant abnormalities Differential diagnosis: Differential diagnoses includes but is not limited to gastritis, peptic ulcer disease, GERD, gallbladder disease, pancreatitis, small bowel obstruction, appendicitis, diverticulitis, hernia, urinary tract infection, torsion, /ectopic (if female), perforation, trauma, infectious. ER treatment provided: See below Diagnostics interpreted by me include EKG and cardiac monitoring as listed below: -Cardiac Monitoring: An order was placed for continuous cardiac monitoring. The monitor shows a rate of 110 with sinus rhythm. -ECG: none -Laboratory studies:Interpreted by me as stated above in MDM and shown below. Imaging studies: Xrays: As interpreted by me: Portable AP upright 1 view of the chest shows no focal infiltrate CTs show: CT head was negative Procedures:none Critical Care: None Past Med/Surg History Medical History Depression, unspecified Flu-like symptoms Overdose Social History Smoking Status: Unknown if ever smoked Hx Substance Use: Yes Preferred Language: Hebrew Communication Ability: Impaired Visual Impairment: No Limitations Hearing Ability: Normal Telesales Consultant Required: No Beliefs That Will Affect Care: None marital status: Current Living Situation: Spouse How many Children do You have: 3 Feels Safe at Home: Yes Assistive Devices: None Allergies Allergies Allergy/AdvReac Type Severity Reaction Status Date / Time Penicillins Allergy Unknown UNKNOWN Verified 05/26/22 23:32 ondansetron AdvReac Severe Tachycardia Verified 05/26/22 23:32 erythromycin base AdvReac Intermediate NAUSEA Verified 05/26/22 23:32 metoclopramide AdvReac Intermediate "NEURO Verified 05/26/22 23:32 COMPLICATIONS"-INVOLUNTARY MUSCLE TWITCHES sitagliptin [From Januvia] AdvReac Intermediate FACIAL & Verified 05/26/22 23:32 ARM NUMBNESS Home Meds Home Medications Medication Instructions Recorded Confirmed amitriptyline 100 mg tablet 100 mg PO HS 11/16/18 05/26/22 aspirin 81 mg tablet,delayed 81 mg PO QAM 11/16/18 05/26/22 release doxepin 25 mg capsule 25 mg PO HS 11/16/18 05/26/22 metformin 1,000 mg tablet 1,000 mg PO BIDM 11/16/18 05/26/22 quetiapine 300 mg tablet 300 mg PO HS 11/16/18 05/26/22 sennosides 8.6 mg-docusate sodium 2 tab PO BID 08/26/21 05/26/22 50 mg tablet (Senexon-S) cholecalciferol (vitamin D3) 50 50 mcg PO DAILY 05/26/22 05/26/22 mcg (2,000 unit) capsule (Vitamin D3) cyanocobalamin (vitamin B-12) 1,000 mcg PO DAILY 05/26/22 05/26/22 1,000 mcg tablet (Vitamin B-12) diclofenac sodium 50 mg 50 mg PO BID PRN Pain 05/26/22 05/26/22 tablet,delayed release dicyclomine 20 mg tablet 20 mg PO BID PRN ABD PAIN 05/26/22 05/26/22 gabapentin 400 mg capsule 400 mg PO BID 05/26/22 05/26/22 polyethylene glycol 3350 17 17 g PO DAILY PRN Constipation 05/26/22 05/26/22 gram/dose oral powder (Miralax) topiramate 50 mg tablet 50 mg PO BID 05/26/22 05/26/22 Previous Rx's Medication Instructions Recorded quetiapine 100 mg tablet 100 mg PO BID #60 tabs 08/27/21 Results & Data (ED) Vital Signs Vital Signs - 24 hr 08/14/23 18:08 08/14/23 18:08 08/14/23 18:08 Temperature 36.9 C 36.9 C Temperature Source Oral Oral Pulse Rate 84 Pulse Rate [Apical] 84 Pulse Rhythm [Apical] Regular Respiratory Rate 17 17 Respiratory Effort / Characteristics Non-Labored Spontaneous Non-Labored Spontaneous Respiratory Depth Normal Normal Respiratory Pattern Regular Blood Pressure 147/81 H Blood Pressure [Right Arm] 147/81 H Blood Pressure Mean 103 Blood Pressure Mean [Right Arm] 103 Blood Pressure Position Lying Blood Pressure Position [Right Arm] Lying Pulse Oximetry 96 96 96 Oxygen Delivery Method Room Air Room Air Room Air Sepsis Recent Fever Within 48 Hours No Sepsis New/Unexplained Change in Mental Status N/A Sepsis Action Taken by Nursing No Action Required 08/14/23 18:08 08/14/23 18:33 Temperature Temperature Source Pulse Rate 84 112 H Pulse Rate [Apical] Pulse Rhythm [Apical] Respiratory Rate 17 Respiratory Effort / Characteristics Respiratory Depth Respiratory Pattern Blood Pressure Blood Pressure [Right Arm] Blood Pressure Mean Blood Pressure Mean [Right Arm] Blood Pressure Position Blood Pressure Position [Right Arm] Pulse Oximetry 96 Oxygen Delivery Method Room Air Sepsis Recent Fever Within 48 Hours Sepsis New/Unexplained Change in Mental Status Sepsis Action Taken by Nursing Laboratory Data 08/14/23 18:55 08/14/23 18:55 Lab Results 08/14/23 08/14/23 08/14/23 Range/Units 18:49 18:55 20:27 WBC 8.74 (4.8-10.8) K/ul RBC 4.09 L (4.20-5.40) M/uL Hgb 12.9 (12.0-16.0) g/dl Hct 39.5 (37.0-47.0) % MCV 96.6 (80.0-100.0) fL MCH 31.5 (25.0-34.0) pg MCHC 32.7 (32.0-36.0) g/dL RDW Std Deviation 49.6 H (36.4-46.3) fL RDW Coeff of [place] 13.8 (11.5-14.5) % Plt Count 284 (130-400) K/uL MPV 9.1 L (9.4-12.4) fL Immature Gran % (Auto) 0.7 % Neut % (Auto) 68.6 % Lymph % (Auto) 26.1 % Howard % (Auto) 3.1 % Eos % (Auto) 0.6 % Baso % (Auto) 0.9 % Neut # (Auto) 6.00 (1.40-6.50) K/uL Lymph # (Auto) 2.28 (1.20-3.40) K/uL Howard # (Auto) 0.27 (0.11-0.59) K/uL Eos # (Auto) 0.05 (0.00-0.50) K/uL Baso # (Auto) 0.08 (0.00-0.20) K/uL Immature Gran # (Auto) 0.06 (0.01-0.20) K/uL Sodium 141 (136-145) mmol/L Potassium 3.9 (3.5-5.1) mmol/L Chloride 110 H (98-107) mmol/L Carbon Dioxide 22 (21-32) mmol/L Anion Gap 9 (3-11) BUN 13 (6-23) mg/dl Creatinine 0.79 (0.6-1.2) mg/dl Est Cr Clr Drug Dosing Not Reportable Est GFR ( Amer) 95.0 ml/min Est GFR (Non-Af Amer) 81.9 ml/min BUN/Creatinine Ratio 16.5 (10-20) Glucose 154 H (70-99(Fasting)) mg/dl Calcium 9.2 (8.6-10.3) mg/dl Total Bilirubin 0.2 (0.2-1.0) mg/dl AST 17 (13-39) U/L ALT 11 (7-52) U/L Alkaline Phosphatase 82 (34-104) U/L Troponin I High Sens 3.1 (0-14) pg/ml Total Protein 7.0 (6.0-8.3) gm/dl Albumin 4.1 (3.4-5.0) gm/dl Globulin 2.9 (2.5-4.0) gm/dl Albumin/Globulin Ratio 1.4 (0.9-2) Lipase 33 (11-82) U/L Urine Color Yellow Urine Appearance Clear (Clear) Urine pH 6.5 (4.5-7.5) Ur Specific [place] 1.016 (1.000-1.030) Urine Protein Negative (Negative) Urine Glucose (UA) Negative (Negative) Urine Ketones Negative (Negative) Urine Blood Negative (Negative) Urine Nitrite Negative (Negative) Urine Bilirubin Negative (Negative) Urine Urobilinogen Negative (Negative) Ur Leukocyte Esterase 1+ H (Negative) Urine WBC (Auto) 5-10 H (0-5) /hpf Urine RBC (Auto) 0-4 (0-4) /hpf U Hyaline Cast (Auto) 0 (0-5) /lpf U Epithel Cells (Auto) >30 H (0-5) /lpf Urine Bacteria (Auto) Negative (Negative) Urine Opiates Screen Neg (Neg) Ur Methadone, Qual Neg (Neg) Urine Barbiturates Neg (Neg) Ur Phencyclidine (PCP) Neg (Neg) U Amphetamin/Meth Scrn Neg (Neg) MDMA (Ecstasy) Screen Neg (Neg) U Benzodiazepines Scrn Neg (Neg) Ur Cocaine Metabolite Neg (Neg) U Marijuana (THC) Screen Pos H (Neg) Ethyl Alcohol mg/dL < 10.0 (<10.0) mg/dl Administered Medications Discontinued Medications Levetiracetam 2,000 mg/ Sodium (Chloride) 270 mls @ 999 mls/hr IV NOW STA Stop: 08/14/23 18:14 Last Admin: 08/14/23 19:28 Dose: 999 mls/hr Documented By: JODY Ceftriaxone Sodium (Rocephin) 2,000 mg in 50 mls @ 100 mls/hr IV NOW STA Stop: 08/14/23 20:45 Last Admin: 08/14/23 20:44 Dose: 100 mls/hr Documented By: JODY Imaging Data Radiologist's Impression: Head CT 08/14/23 17:58 CT head/brain wo con CLINICAL HISTORY: seizure Technique: Contiguous axial CT images of the head were acquired from the base of the skull to the vertex without intravenous contrast administration. Images were viewed in brain, subdural and bone windows. Automated dose lowering techniques and/or adjustment according to patient size were utilized for this exam. Comparison: Comparison is made to CT head 05/27/2022 Findings: The ventricles, basal cisterns, and cerebral sulci are normal. There is no acute intracranial hemorrhage or evidence of acute territorial infarction. Neither mass effect, shift of the midline structures, nor abnormal extra-axial fluid collections are shown. Imaged portions of the paranasal sinuses and mastoid air cells are clear. The orbits appear normal. There are no acute fractures of the calvaria or scalp swelling. Impression: No acute intracranial hemorrhage, no evidence of acute territorial infarction or other acute intracranial disease process. ACT 112: Negative or not required by law. Electronically signed by: Clyde Bright M.D. 08/14/2023 7:11 PM Chest X-Ray 08/14/23 17:59 XR chest 1V portable CLINICAL HISTORY: Chest pain, nonspecific TECHNIQUE: Single frontal radiograph of the chest was obtained. Comparison: Comparison is made to chest radiograph 05/26/2022 FINDINGS: No lines and tubes are seen. The cardiomediastinal silhouette is normal. Atelectasis is in the left lung base. No evidence of pleural effusion or pneumothorax. IMPRESSION: No acute chest disease. ACT 112: Negative or not required by law. Electronically signed by: Clyde Bright M.D. 08/14/2023 7:19 PM Discharge Plan Visit Data Chief Complaint: Seizure ED Provider: Mina Marin Discharge Problem: AMS (altered mental status), High serum chloride Forms Stand Alone Forms: [facility] Prescriptions Prescriptions: No Action quetiapine 300 mg tablet 300 mg PO HS Rx Instructions: LAST FILLED 11/11/21 FOR 27 TABS. ON [facility] MED LIST doxepin 25 mg capsule 25 mg PO HS aspirin 81 mg Tablet,Delayed Release (Dr/Ec) 81 mg PO QAM metformin 1,000 mg tablet 1,000 mg PO BIDM amitriptyline 100 mg tablet 100 mg PO HS sennosides-docusate sodium [Senexon-S] 8.6-50 mg tablet 2 tab PO BID quetiapine 100 mg tablet 100 mg PO BID Qty: 60 0RF gabapentin 400 mg capsule 400 mg PO BID cyanocobalamin (vitamin B-12) [Vitamin B-12] 1,000 mcg Tablet 1,000 mcg PO DAILY dicyclomine 20 mg tablet 20 mg PO BID PRN (Reason: ABD PAIN) diclofenac sodium [Voltaren] 50 mg Tablet,Delayed Release (Dr/Ec) 50 mg PO BID PRN (Reason: Pain) polyethylene glycol 3350 [Miralax] 17 gram/dose Powder 17 g PO DAILY PRN (Reason: Constipation) topiramate 50 mg tablet 50 mg PO BID Rx Instructions: LAST FILLED 12/04/21 FOR 60 TABS/30 DAYS, ON [facility] MED LIST. cholecalciferol (vitamin D3) [Vitamin D3] 50 mcg (2,000 unit) Capsule 50 mcg PO DAILY Referrals Referrals: Fatou Dailey MD [Primary Care Provider] - Discharge Problem: AMS (altered mental status) Qualifiers: Altered mental status type: unspecified Qualified Code(s): R41.82 - Altered mental status, unspecified
[2023-08-14 19:14] LABS: Basophils # (auto) 0.08 K/uL (0.00-0.20); Basophils % (auto) 0.9 %; Eosinophils # (auto) 0.05 K/uL (0.00-0.50); Eosinophils % (auto) 0.6 %; Hematocrit (blood only) 39.5 % (37.0-47.0); Hemoglobin 12.9 g/dl (12.0-16.0); Immature Granulocytes # (auto) 0.06 K/uL (0.01-0.20); Immature Granulocytes % (auto) 0.7 %; Lymphocytes # (auto) 2.28 K/uL (1.20-3.40); Lymphocytes % (auto) 26.1 %; Mean Corpuscular Hemoglobin 31.5 pg (25.0-34.0); Mean Corpuscular Hgb Conc 32.7 g/dL (32.0-36.0); Mean Corpuscular Volume 96.6 fL (80.0-100.0); Mean Platelet Volume 9.1 fL (9.4-12.4); Monocytes # (auto) 0.27 K/uL (0.11-0.59); Monocytes % (auto) 3.1 %; Neutrophils % (auto) 68.6 %; Platelet Count 284 K/uL (130-400); RDW Coefficient of Variation 13.8 % (11.5-14.5); RDW Standard Deviation 49.6 fL (36.4-46.3); Red Blood Count 4.09 M/uL (4.20-5.40); White Blood Count 8.74 K/ul (4.8-10.8)
--- NOTE | 2023-08-14 19:14 | CT Scan Report ---
CT head/brain wo con CLINICAL HISTORY: seizure Technique: Contiguous axial CT images of the head were acquired from the base of the skull to the rufino anjum without intravenous contrast administration. Images were viewed in brain, subdural and bone [facility]. Automated dose lowering techniques and/or adjustment according to patient size were utilized for this exam. Comparison: Comparison is made to CT head 05/27/2022 Findings: The ventricles, basal cisterns, and cerebral sulci are normal. There is no acute intracranial hemorrh age or evidence of acute territorial infarction. Neither mass effect, shift of the midline structures , nor abnormal extra-axial fluid collections are shown. Imaged portions of the paranasal sinuses and mastoid air cells are clear. The orbits appear normal. There are no acute fractures of the calvaria or scalp swelling. Impression: No acute intracranial hemorrhage, no evidence of acute territorial infarction or other acute intracra nial disease process. ACT 112: Negative or not required by law. Electronically signed by: Clyde Bright M.D. 08/14/2023 7:11 PM
--- NOTE | 2023-08-14 19:21 | XRay Report ---
XR chest 1V portable CLINICAL HISTORY: Chest pain, nonspecific TECHNIQUE: Single frontal radiograph of the chest was obtained. Comparison: Comparison is made to chest radiograph 05/26/2022 FINDINGS: No lines and tubes are seen. The cardiomediastinal silhouette is normal. Atelectasis is in the left l prince base. No evidence of pleural effusion or pneumothorax. IMPRESSION: No acute chest disease. ACT 112: Negative or not required by law. Electronically signed by: Clyde Bright M.D. 08/14/2023 7:19 PM
[2023-08-14 19:30] LABS: Albumin Level 4.1 gm/dl (3.4-5.0); Anion Gap 9 (3-11); Bilirubin,Total 0.2 mg/dl (0.2-1.0); Calcium 9.2 mg/dl (8.6-10.3); Carbon Dioxide 22 mmol/L (21-32); Chloride 110 mmol/L (98-107); Potassium 3.9 mmol/L (3.5-5.1); Sodium 141 mmol/L (136-145)
[2023-08-14 19:36] LABS: Alanine Aminotransferase 11 U/L (7-52); Albumin Globulin Ratio 1.4 (0.9-2); Alkaline Phosphatase 82 U/L (34-104); Aspartate Aminotransferase 17 U/L (13-39); BUN Creatinine Ratio 16.5 (10-20); Blood Urea Nitrogen 13 mg/dl (6-23); Est GFR (Non-African American) 81.9 ml/min; Globulin 2.9 gm/dl (2.5-4.0); Glucose 154 mg/dl (70-99(Fasting)); Lipase 33 U/L (11-82)
[2023-08-14 19:42] LABS: Troponin I High Sensitivity 3.1 pg/ml (0-14)
[2023-08-14 19:45] LABS: Amphetamines+Metham, Urine Neg (Neg); Barbiturates, Urine Neg (Neg); Benzodiazepine, Urine Neg (Neg); Cocaine, Urine Neg (Neg); MDMA (Ecstacy), Urine Neg (Neg); Marijuana, Urine Pos (Neg); Methadone, Urine Neg (Neg); Opiate, Urine Neg (Neg); Phencyclidine, Urine Neg (Neg)
[2023-08-14] MEDS ORDERED: cefTRIAXone SODIUM 2,000 MG/50 ML BAG IV STA (20:16)
[2023-08-14 20:39] LABS: Appearance Urine Clear (Clear); Bacteria Urine Automated Negative (Negative); Bilirubin Urine Negative (Negative); Blood Urine Negative (Negative); Cast Urine Automated 0 /lpf (0-5); Color Urine Yellow; Epithelial Cell Urine Auto >30 /lpf (0-5); Glucose Urine UA Negative (Negative); Ketones Urine Negative (Negative); Leukocyte Esterase Urine 1+ (Negative); Nitrite Urine Negative (Negative); Protein Urine Negative (Negative); RBC Urine Automated 0-4 /hpf (0-4); Specific Gravity Urine 1.016 (1.000-1.030); Urobilinogen Urine Negative (Negative); pH Urine 6.5 (4.5-7.5)
[2023-08-14] MEDS ORDERED: NITROGLYCERIN SL 0.4 MG/TAB TAB SL PRN (23:33)
[2023-08-14] MEDS ORDERED: LORazepam 2 MG in SYRINGE 1 ML IV PRN (23:33)
[2023-08-14] MEDS: SODIUM CHLORIDE 0.9% 1,000 ML IV SCH (23:59)
--- NOTE | 2023-08-15 05:56 | History & Physical Report ---
Date of Service August 14, 2023 Assessment & Plan (1) Seizure: Plan: 58-year-old female with past medical history significant for type 2 diabetes, diabetic peripheral neuropathy, hyperlipidemia, obstructive lung lesion, GERD, slow transit constipation, nonalcoholic fatty liver disease, irritable bowel syndrome with constipation, empty sella syndrome, seizure disorder, tension headache, depression, statin intolerance presents with seizures. Seizures History of seizures On gabapentin and Topamax 3 episodes of seizures in half hour per daughter Loaded with Keppra in the ER Continue with IV Keppra 500 mg twice daily Continue on gabapentin and Topamax Monitor on telemetry floor Seizure precautions EEG in a.m. Consult neurology Close monitor Diabetes Hold metformin Insulin sliding scale Will monitor Depression Continue Seroquel and amitriptyline DVT prophylaxis SCDs Disposition telemetry floor Full code History of Present Illness Chief Complaint: Seizures Primary Care Provider: Fatou Dailey MD 58-year-old female with past medical history significant for type 2 diabetes, diabetic peripheral neuropathy, hyperlipidemia, obstructive lung lesion, GERD, slow transit constipation, nonalcoholic fatty liver disease, irritable bowel syndrome with constipation, empty sella syndrome, seizure disorder, tension headache, depression, statin intolerance presents with seizures. Patient currently is confused. Current could not get any history from the patient. Talked with the daughter on the phone. As per daughter around 5 PM within half hour she had 3 episodes of seizures. She was having blank states and some shaking in the head and confusion. Whenever she gets seizures she gets confused as per daughter. Looks like in May 2020 she had a seizure and at that time she was intubated and given Keppra and propofol and Versed and she was [place] [facility] where she had continuous monitoring with no additional seizures and was weaned and extubated quickly as per neurology notes. She is on gabapentin 400 mg 3 times daily and Topamax 25 mg twice daily. As per daughter her medications list in [facility] system is mostly accurate. Past medical history. As mentioned above Past surgical history. Left breast biopsy. Colonoscopy. EGD. Colonoscopy with biopsy. Laparoscopy 3 times for adhesions. I&D of right axillary abscess. Ligation of oviducts. Total abdominal hysterectomy with removal of tubes. Social history. No smoking. No alcohol. No drug use. Family history. Mother had breast cancer. Colon cancer. Father had eye problems, [place]. Aunt has Crohn's disease. Allergies Allergy/AdvReac Type Severity Reaction Status Date / Time Penicillins Allergy Unknown UNKNOWN Verified 05/26/22 23:32 ondansetron AdvReac Severe Tachycardia Verified 05/26/22 23:32 erythromycin base AdvReac Intermediate NAUSEA Verified 05/26/22 23:32 metoclopramide AdvReac Intermediate "NEURO Verified 05/26/22 23:32 COMPLICATIONS"-INVOLUNTARY MUSCLE TWITCHES sitagliptin [From Januvia] AdvReac Intermediate FACIAL & Verified 05/26/22 23:32 ARM NUMBNESS Home Medications Medication Instructions Recorded Confirmed Type amitriptyline 25 mg tablet 25 mg PO HS 08/15/23 08/15/23 History aspirin 81 mg tablet,delayed 81 mg PO DAILY 08/15/23 08/15/23 History release cyclobenzaprine 10 mg tablet 10 mg PO BID PRN Muscle Spasm 08/15/23 08/15/23 History dicyclomine 20 mg tablet 20 mg PO BID 08/15/23 08/15/23 History gabapentin 400 mg capsule 400 mg PO TID 08/15/23 08/15/23 History metformin 1,000 mg tablet 500 mg PO BID 08/15/23 08/15/23 History quetiapine 100 mg tablet 100 mg PO BID 08/15/23 08/15/23 History topiramate 25 mg tablet 25 mg PO BID 08/15/23 08/15/23 History Past Med/Surg History Medical History (Updated 08/15/23 @ 06:06 by Giovanni Sánchez MD) Depression, unspecified Delirium Prolonged QT interval Overdose Seizure Flu-like symptoms Social History Smoking Status: Unknown if ever smoked Cigarettes Per Day: N/A; Hx Substance Use: Yes Last Used Substance: Just Prior to Arrival Preferred Language: Indonesian Communication Ability: Impaired Communication Ability Comment: PT CONFUSED Visual Impairment: No Limitations Hearing Ability: Normal Dental Appliance Fixer Required: No Beliefs That Will Affect Care: None marital status: Current Living Situation: Spouse Current Living Situation Comment: PT UNABLE TO ANSWER How many Children do You have: 3 Feels Safe at Home: Yes Safety Concerns: Feels Safe At This Time Assistive Devices: None Assistive Devices Comment: N/A Review of Systems Review of Systems: Unobtainable due to reduced consciousness Physical Exam Physical Exam: General- confused Head- atraumatic Eyes- PERRL. ENT- oropharynx clear Neck- supple, no JVD. Lungs- clear to auscultation no wheezing or crackles. Heart- regular rhythm; no murmur, no gallop. Abdomen- normal bowel sounds, soft, nontender, no distension. Extremities- no pretibial edema, no erythema seen. Neuro- alert, and awake. confused.; no facial palsy; no dysarthria; Not obeying commands,moves extremities. Skin- warm & dry Results & Data Results & Data Vital Signs (Past 12 Hours) Vital Signs Temp Pulse Pulse Resp BP BP Pulse Ox 08/14/23 22:10 86 08/14/23 20:00 83 18 129/68 100 08/14/23 18:33 112 H 08/14/23 18:08 84 17 96 08/14/23 18:08 36.9 C 84 17 147/81 H 96 08/14/23 18:08 96 08/14/23 18:08 36.9 C 84 17 147/81 H 96 O2 Del Method 08/14/23 22:10 08/14/23 20:00 Room Air 08/14/23 18:33 08/14/23 18:08 Room Air 08/14/23 18:08 Room Air 08/14/23 18:08 Room Air 08/14/23 18:08 Room Air Diagnostic Findings Laboratory Results WBC 8.74 K/ul (4.8-10.8) 08/14/23 18:55 RBC 4.09 M/uL (4.20-5.40) L 08/14/23 18:55 Hgb 12.9 g/dl (12.0-16.0) 08/14/23 18:55 Hct 39.5 % (37.0-47.0) 08/14/23 18:55 MCV 96.6 fL (80.0-100.0) 08/14/23 18:55 MCH 31.5 pg (25.0-34.0) 08/14/23 18:55 MCHC 32.7 g/dL (32.0-36.0) 08/14/23 18:55 RDW Std Deviation 49.6 fL (36.4-46.3) H 08/14/23 18:55 RDW Coeff of [place] 13.8 % (11.5-14.5) 08/14/23 18:55 Plt Count 284 K/uL (130-400) 08/14/23 18:55 MPV 9.1 fL (9.4-12.4) L 08/14/23 18:55 Immature Gran % (Auto) 0.7 % 08/14/23 18:55 Neut % (Auto) 68.6 % 08/14/23 18:55 Lymph % (Auto) 26.1 % 08/14/23 18:55 [place] % (Auto) 3.1 % 08/14/23 18:55 Eos % (Auto) 0.6 % 08/14/23 18:55 Baso % (Auto) 0.9 % 08/14/23 18:55 Neut # (Auto) 6.00 K/uL (1.40-6.50) 08/14/23 18:55 Lymph # (Auto) 2.28 K/uL (1.20-3.40) 08/14/23 18:55 [place] # (Auto) 0.27 K/uL (0.11-0.59) 08/14/23 18:55 Eos # (Auto) 0.05 K/uL (0.00-0.50) 08/14/23 18:55 Baso # (Auto) 0.08 K/uL (0.00-0.20) 08/14/23 18:55 Immature Gran # (Auto) 0.06 K/uL (0.01-0.20) 08/14/23 18:55 Sodium 141 mmol/L (136-145) 08/14/23 18:55 Potassium 3.9 mmol/L (3.5-5.1) 08/14/23 18:55 Chloride 110 mmol/L (98-107) H 08/14/23 18:55 Carbon Dioxide 22 mmol/L (21-32) 08/14/23 18:55 Anion Gap 9 (3-11) 08/14/23 18:55 BUN 13 mg/dl (6-23) 08/14/23 18:55 Creatinine 0.79 mg/dl (0.6-1.2) 08/14/23 18:55 Est Cr Clr Drug Dosing Not Reportable 08/14/23 18:55 Est GFR ( Amer) 95.0 ml/min 08/14/23 18:55 Est GFR (Non-Af Amer) 81.9 ml/min 08/14/23 18:55 BUN/Creatinine Ratio 16.5 (10-20) 08/14/23 18:55 Glucose 154 mg/dl (70-99(Fasting)) H 08/14/23 18:55 Calcium 9.2 mg/dl (8.6-10.3) 08/14/23 18:55 Total Bilirubin 0.2 mg/dl (0.2-1.0) 08/14/23 18:55 AST 17 U/L (13-39) 08/14/23 18:55 ALT 11 U/L (7-52) 08/14/23 18:55 Alkaline Phosphatase 82 U/L (34-104) 08/14/23 18:55 Troponin I High Sens 3.1 pg/ml (0-14) 08/14/23 18:55 Total Protein 7.0 gm/dl (6.0-8.3) 08/14/23 18:55 Albumin 4.1 gm/dl (3.4-5.0) 08/14/23 18:55 Globulin 2.9 gm/dl (2.5-4.0) 08/14/23 18:55 Albumin/Globulin Ratio 1.4 (0.9-2) 08/14/23 18:55 Lipase 33 U/L (11-82) 08/14/23 18:55 Urine Color Yellow 08/14/23 20:27 Urine Appearance Clear (Clear) 08/14/23 20: Urine pH 6.5 (4.5-7.5) 08/14/23 20: Ur Specific [place] 1.016 (1.000-1.030) 08/14/23 20:27 Urine Protein Negative (Negative) 08/14/23 20: Urine Glucose (UA) Negative (Negative) 08/14/23 20: Urine Ketones Negative (Negative) 08/14/23: Urine Blood Negative (Negative) 08/14/23 20: Urine Nitrite Negative (Negative) 08/14/23 20: Urine Bilirubin Negative (Negative) 08/14/23 20: Urine Urobilinogen Negative (Negative) 08/14/23 20: Ur Leukocyte Esterase 1+ (Negative) H 08/14/23 20:27 Urine WBC (Auto) 5-10 /hpf (0-5) H 08/14/23 20:27 Urine RBC (Auto) 0-4 /hpf (0-4) 08/14/23 20:27 U Hyaline Cast (Auto) 0 /lpf (0-5) 08/14/23 20:27 U Epithel Cells (Auto) >30 /lpf (0-5) H 08/14/23 20:27 Urine Bacteria (Auto) Negative (Negative) 08/14/23 20:27 Urine Opiates Screen Neg (Neg) 08/14/23 18:49 Ur Methadone, Qual Neg (Neg) 08/14/23 18:49 Urine Barbiturates Neg (Neg) 08/14/23 18:49 Ur Phencyclidine (PCP) Neg (Neg) 08/14/23 18:49 U Amphetamin/Meth Scrn Neg (Neg) 08/14/23 18:49 MDMA (Ecstasy) Screen Neg (Neg) 08/14/23 18:49 U Benzodiazepines Scrn Neg (Neg) 08/14/23 18:49 Ur Cocaine Metabolite Neg (Neg) 08/14/23 18:49 U Marijuana (THC) Screen Pos (Neg) H 08/14/23 18:49 Ethyl Alcohol mg/dL < 10.0 mg/dl (<10.0) 08/14/23 18:[address] 08/14/23 17:58 CT head/brain wo con CLINICAL HISTORY: seizure Technique: Contiguous axial CT images of the head were acquired from the base of the skull to the vertex without intravenous contrast administration. Images were viewed in brain, subdural and bone windows. Automated dose lowering techniques and/or adjustment according to patient size were utilized for this exam. Comparison: Comparison is made to CT head 05/27/2022 Findings: The ventricles, basal cisterns, and cerebral sulci are normal. There is no acute intracranial hemorrhage or evidence of acute territorial infarction. Neither mass effect, shift of the midline structures, nor abnormal extra-axial fluid collections are shown. Imaged portions of the paranasal sinuses and mastoid air cells are clear. The orbits appear normal. There are no acute fractures of the calvaria or scalp swelling. Impression: No acute intracranial hemorrhage, no evidence of acute territorial infarction or other acute intracranial disease process. ACT 112: Negative or not required by law. Electronically signed by: Clyde Bright M.D. 08/14/2023 7:11 PM Chest X-Ray 08/14/23 17:59 XR chest 1V portable CLINICAL HISTORY: Chest pain, nonspecific TECHNIQUE: Single frontal radiograph of the chest was obtained. Comparison: Comparison is made to chest radiograph 05/26/2022 FINDINGS: No lines and tubes are seen. The cardiomediastinal silhouette is normal. Atelectasis is in the left lung base. No evidence of pleural effusion or pneumothorax. IMPRESSION: No acute chest disease. ACT 112: Negative or not required by law. Electronically signed by: Clyde Bright M.D. 08/14/2023 7:19 PM ECG Additional Comments: ECG. Normal sinus rhythm rate of 86. No significant change was found. Code Status & VTE Plan VTE Prophylaxis Plan VTE Prophylaxis will be ordered: Yes
[2023-08-15] MEDS ORDERED: GLUCOSE 40% GEL 15 GM TUBE PO PRN (06:09)
[2023-08-15] MEDS ORDERED: GLUCAGON FOR INJ 1 MG VIAL SQ PRN (06:09)
[2023-08-15] MEDS ORDERED: CARBOHYDRATES FOR HYPOGLYCEMIA PO PRN (06:09)
[2023-08-15] MEDS ORDERED: DEXTROSE 50% 50 ML SYRINGE IV PRN (06:09)
[2023-08-15] MEDS ORDERED: GLUCOSE 10 TAB/TUBE PO PRN (06:09)
[2023-08-15 06:10] LABS: BUN Creatinine Ratio 12.8 (10-20); Calcium 9.2 mg/dl (8.6-10.3); Creatinine Clr Calc Pharmacy 78.9 ml/min; Est GFR (African American) 96.4 ml/min; Est GFR (Non-African American) 83.2 ml/min; Magnesium 1.8 mg/dl (1.7-2.4); Potassium 3.7 mmol/L (3.5-5.1)
[2023-08-15] MEDS ORDERED: CYCLOBENZAPRINE HCL 10 MG TAB PO PRN (06:16)
[2023-08-15 06:20] LABS: Hemoglobin 14.4 g/dl (12.0-16.0); Mean Corpuscular Hemoglobin 31.3 pg (25.0-34.0); Mean Corpuscular Hgb Conc 32.7 g/dL (32.0-36.0); Mean Corpuscular Volume 95.7 fL (80.0-100.0); Mean Platelet Volume 9.1 fL (9.4-12.4); Platelet Count 273 K/uL (130-400); RDW Coefficient of Variation 13.7 % (11.5-14.5); RDW Standard Deviation 48.9 fL (36.4-46.3); White Blood Count 12.07 K/ul (4.8-10.8)
[2023-08-15 06:22] LABS: Basophils # (auto) 0.09 K/uL (0.00-0.20); Basophils % (auto) 0.7 %; Eosinophils # (auto) 0.04 K/uL (0.00-0.50); Eosinophils % (auto) 0.3 %; Immature Granulocytes # (auto) 0.07 K/uL (0.01-0.20); Immature Granulocytes % (auto) 0.6 %; Lymphocytes # (auto) 2.92 K/uL (1.20-3.40); Lymphocytes % (auto) 24.2 %; Monocytes # (auto) 0.54 K/uL (0.11-0.59); Monocytes % (auto) 4.5 %; Neutrophils # (auto) 8.41 K/uL (1.40-6.50); Neutrophils % (auto) 69.7 %; RBC Morphology Unremarkable
[2023-08-15 07:17] LABS: Estimated Average Glucose 134 mg/dl; Hemoglobin A1C 6.3 % (4.5-5.6)
[2023-08-15] MEDS: INSULIN ASPART PER UNIT CHARGE SC SCH ×2 (07:43→12:13)
[2023-08-15] MEDS: ACETAMINOPHEN 325 MG TAB PO PRN ×2 (07:48)
[2023-08-15] MEDS ORDERED: ASPIRIN 81 MG ECTAB PO SCH (09:00)
[2023-08-15] MEDS ORDERED: DICYCLOMINE HCL 20 MG TAB PO SCH (09:00)
[2023-08-15] MEDS ORDERED: QUEtiapine FUMARATE 100 MG TABLET PO SCH (09:00)
[2023-08-15] MEDS ORDERED: TOPIRAMATE 25 MG TAB PO SCH (09:00)
[2023-08-15] MEDS ORDERED: GABAPENTIN 400 MG CAP PO SCH (09:00)
--- NOTE | 2023-08-15 09:25 | Electrocardiogram Report ---
Test Reason : Blood Pressure : / mmHG Vent. Rate : 086 BPM Atrial Rate : 086 BPM P-R Int : 152 ms QRS Dur : 074 ms QT Int : 400 ms P-R-T Axes : 073 026 059 degrees QTc Int : 478 ms Normal sinus rhythm Normal ECG When compared with ECG of 26-MAY-2022 23:39, No significant change was found Confirmed by Av Manzo ([id number]) on 08/15/2023 9:25:02 AM Referred By: REFERRED SELF Confirmed By:Av Manzo
[2023-08-15] MEDS: levETIRAcetam 500 MG in 0.9 % SODIUM CHLORIDE 100 ML IV SCH ×2 (10:06→12:13)
--- NOTE | 2023-08-15 11:32 | Neurology Consultation ---
Date of Consultation August 15, 2023 Assessment & Plan (1) Seizure: Patient presents with breakthrough seizure due to likely undertreatment of her disorder. Given the confines of her wishes I recommend at least increasing her topamax to a seizure dose level. So would increase to 50mg BID, then in 7 days 100mg BID. Continue gabapentin 400mg TID. Otherwise recommend close follow-up Dr. Jones and discussions about starting a primary seizure medication. -- Gabapentin 400mg TID -- Increase topamax to 50mg BID, plan for 100mg BID in 7 days -- Close follow-up Dr. Jones Telehealth Consultation Telehealth Information Telehealth Information: I performed this visit using a real-time telehealth connection between my location and the patients location ([facility]). After connecting through interactive tele-video, patient was identified by name and date of and/or wristband check.Patient (or authorized healthcare arborist representative) was informed that this was a telemedicine visit and it was being conducted confidentially over secure lines. My office door was closed and no one else was present in the room with me.Patient (or authorized healthcare arborist representative) provided consent to proceed with the visit, expressed an understanding of privacy and security of the telemedicine visit, and gave permission to have a hospital arborist representative in the room in order to assist with the visit and to conduct portions of the visit, as needed. I informed the patient (or authorized healthcare arborist representative) that I reviewed their record and presented the opportunity for them to ask any questions regarding the visit today. The patient agreed to participate. History of Present Illness Reason for Consultation: Seizure cluster Requesting Physician: Dr. Booth Attending Physician: Kya Booth MD History of Present Illness oLrrie Handy is a 58 yo F with a history of seizures presenting with a seizure cluster yesterday as witnessed by her . He is at bedside and describes staring followed by facial and neck twitching and post-ictal psychosis. Today she feels much better without any further seizures. She recently saw Dr. Jones who continued both gabapentin and topamax but no other seizure medications as she had been reportedly seizure free for the past year. However, her remains concerned she is having small episodes while he is at work. The patient expressed strong preferences that she can not take any seizure medication due to side effects but is unsure what else she has tried in the past beyond Keppra. She is otherwise anxious to return home. Allergies Allergy/AdvReac Type Severity Reaction Status Date / Time Penicillins Allergy Unknown UNKNOWN Verified 05/26/22 23:32 ondansetron AdvReac Severe Tachycardia Verified 05/26/22 23:32 erythromycin base AdvReac Intermediate NAUSEA Verified 05/26/22 23:32 metoclopramide AdvReac Intermediate "NEURO Verified 05/26/22 23:32 COMPLICATIONS"-INVOLUNTARY MUSCLE TWITCHES sitagliptin [From Elvirarhoda] AdvReac Intermediate FACIAL & Verified 05/26/22 23:32 ARM NUMBNESS Home Medications Medication Instructions Recorded Confirmed Type amitriptyline 25 mg tablet 25 mg PO HS 08/15/23 08/15/23 History aspirin 81 mg tablet,delayed 81 mg PO DAILY 08/15/23 08/15/23 History release cyclobenzaprine 10 mg tablet 10 mg PO BID PRN Muscle Spasm 08/15/23 08/15/23 History dicyclomine 20 mg tablet 20 mg PO BID 08/15/23 08/15/23 History gabapentin 400 mg capsule 400 mg PO TID 08/15/23 08/15/23 History metformin 1,000 mg tablet 500 mg PO BID 08/15/23 08/15/23 History quetiapine 100 mg tablet 100 mg PO BID 08/15/23 08/15/23 History topiramate 25 mg tablet 25 mg PO BID 08/15/23 08/15/23 History Patient History Medical History (Updated 08/15/23 @ 06:06 by Giovanni Sánchez MD) Depression, unspecified Delirium Prolonged QT interval Overdose Seizure Flu-like symptoms Social History Smoking Status: Unknown if ever smoked Cigarettes Per Day: N/A; Hx Substance Use: Yes Last Used Substance: Just Prior to Arrival Preferred Language: Kinyarwanda Communication Ability: Impaired Communication Ability Comment: PT CONFUSED Visual Impairment: No Limitations Hearing Ability: Normal Compounder Sterile Products Required: No Beliefs That Will Affect Care: None marital status: Current Living Situation: Spouse Current Living Situation Comment: PT UNABLE TO ANSWER How many Children do You have: 3 Feels Safe at Home: Yes Safety Concerns: Feels Safe At This Time Assistive Devices: None Assistive Devices Comment: N/A Review of Systems +seizure Physical Exam Neurological Examination: Mental Status: Awake and alert. Oriented to person, place, and time. Fluent. Comprehension intact. Affect appropriate. Cranial Nerves: II: pupils 3/3 to 2/2 III/IV/: Versions intact without nystagmus, no gaze preference. VII: Facial expression symmetric VIII: Hearing intact to voice Motor: Strength was symmetric and antigravity throughout. There were no abnormal movements. Reflexes: Unable to assess over telemedicine Results & Data Vital Signs (Past 12 Hours) Vital Signs Temp Pulse Pulse Resp BP Pulse Ox O2 Del Method 08/15/23 08:07 78 08/15/23 07:32 36.3 C L 76 18 124/78 97 Room Air 08/15/23 02:18 36.8 C 76 18 127/79 96 Room Air 08/15/23 01:11 Room Air 08/15/23 00:41 36.9 C 110 H 16 141/81 H 67 L Room Air 08/14/23 23:35 36.8 C 18 L 20 105/67 96 Room Air Laboratory Results Abnormal lab results 08/14/23 08/14/23 08/14/23 Range/Units 18:49 18:55 20:27 WBC (4.8-10.8) K/ul RBC 4.09 L (4.20-5.40) M/uL RDW Std Deviation 49.6 H (36.4-46.3) fL MPV 9.1 L (9.4-12.4) fL Neut # (Auto) (1.40-6.50) K/uL Chloride 110 H (98-107) mmol/L Glucose 154 H (70-99(Fasting)) mg/dl POC Glucose (70-99) mg/dl Hemoglobin A1c (4.5-5.6) % Ur Leukocyte Esterase 1+ H (Negative) Urine WBC (Auto) 5-10 H (0-5) /hpf U Epithel Cells (Auto) >30 H (0-5) /lpf U Marijuana (THC) Screen Pos H (Neg) 08/15/23 08/15/23 Range/Units 05:34 11:06 WBC 12.07 H (4.8-10.8) K/ul RBC (4.20-5.40) M/uL RDW Std Deviation 48.9 H (36.4-46.3) fL MPV 9.1 L (9.4-12.4) fL Neut # (Auto) 8.41 H (1.40-6.50) K/uL Chloride 111 H (98-107) mmol/L Glucose 114 H (70-99(Fasting)) mg/dl POC Glucose 134 H (70-99) mg/dl Hemoglobin A1c 6.3 H (4.5-5.6) % Ur Leukocyte Esterase (Negative) Urine WBC (Auto) (0-5) /hpf U Epithel Cells (Auto) (0-5) /lpf U Marijuana (THC) Screen (Neg)
--- NOTE | 2023-08-15 12:04 | Hospitalist Progress Note ---
Date of Service August 15, 2023 Assessment & Plan (1) Seizure: Plan: 58-year-old female with past medical history significant for type 2 diabetes, diabetic peripheral neuropathy, hyperlipidemia, obstructive lung lesion, GERD, slow transit constipation, nonalcoholic fatty liver disease, irritable bowel syndrome with constipation, empty sella syndrome, seizure disorder, tension headache, depression, statin intolerance presents with seizures. Seizures-breakthrough seizures History of seizures On gabapentin and Topamax 3 episodes of seizures in half hour per daughter Loaded with Keppra in the ER Continue with IV Keppra 500 mg twice daily Monitor on telemetry floor Seizure precautions EEG has been done but the report is pending Consult neurology-appreciate input and recommendation:-- Gabapentin 400mg TID -- Increase topamax to 50mg BID, plan for 100mg BID in 7 days -- Close follow-up Dr. Jones Remains very anxious without any more seizures Wants to leave the hospital today-discussed with the patient about the danger of leaving hospital which could include more seizure activity with injury and even She accepted the risk and wanted to leave the hospital and the was agreeable to do that to0 She was strongly advised to take the medicine for seizures as advised and keep the appointment with the neurologist as a scheduled Should be discharged home this afternoon Diabetes Hold metformin Insulin sliding scale Will monitor Depression Continue Seroquel and amitriptyline DVT prophylaxis SCDs Disposition telemetry floor Full code Admission and Anticipated Discharge Date Admission Date: August 14, 2023 Subjective 08/15/2023 The patient was seen and examined in telemetry unit in presence of the She was admitted last night with seizures and has had EEG and neuroevaluation this morning She is very anxious and wants to go home She was explained the dangers of going home too early when the seizures is not controlled She accepts the risk and still wanted to be discharged and the agreed Review of Systems Review of Systems: All systems reviewed and are unremarkable except as noted below Physical Exam Physical Exam: Sitting at the edge of the bed without any acute distress but is very anxious Constitutional: + ill appearing and average body habitus Eyes: PERRL, conjunctivae normal, anicteric sclerae ENMT: external ear and nose normal, oropharynx normal Neck: trachea midline, no thyromegaly Respiratory: no respiratory distress Auscultation: lungs clear to auscultation bilaterally Cardiovascular: Rate/Rhythm: regular rate and regular rhythm; not tachycardic Heart Sounds: normal S1 and normal S2; no murmur Extremities: no edema Gastrointestinal (Abdomen): Inspection/Auscultation: normal bowel sounds; abdomen not distended Percussion/Palpation: abdomen soft; abdomen nontender Musculoskeletal: No acute arthritis involving any of the joints Neurologic: Alert awake and oriented. No focal sensory and/or motor deficit appreciated. No tremors of the outstretched hands Psychiatric: Remains very anxious Lymphatic: no cervical or axillary lymphadenopathy Results & Data Results & Data Vital Signs (Past 12 Hours) Vital Signs Temp Pulse Pulse Resp BP Pulse Ox O2 Del Method 08/15/23 11:40 36.6 C 81 18 116/56 L 98 Room Air 08/15/23 08:07 78 08/15/23 07:32 36.3 C L 76 18 124/78 97 Room Air 08/15/23 02:18 36.8 C 76 18 127/79 96 Room Air 08/15/23 01:11 Room Air 08/15/23 00:41 36.9 C 110 H 16 141/81 H 67 L Room Air Laboratory Results Short CBC 08/14/23 08/15/23 Range/Units 18:55 05:34 WBC 8.74 12.07 H (4.8-10.8) K/ul Hgb 12.9 14.4 (12.0-16.0) g/dl Hct 39.5 44.0 (37.0-47.0) % Plt Count 284 273 (130-400) K/uL BMP 08/14/23 08/15/23 18:55 05:34 Sodium 141 141 Potassium 3.9 3.7 Chloride 110 H 111 H Carbon Dioxide 22 21 BUN 13 10 Creatinine 0.79 0.78 Glucose 154 H 114 H Calcium 9.2 9.2 Liver Function 08/14/23 Range/Units 18:55 Total Bilirubin 0.2 (0.2-1.0) mg/dl AST 17 (13-39) U/L ALT 11 (7-52) U/L Alkaline Phosphatase 82 (34-104) U/L Albumin 4.1 (3.4-5.0) gm/dl Urine 08/14/23 Range/Units 20:27 Urine Color Yellow Urine Appearance Clear (Clear) Urine pH 6.5 (4.5-7.5) Ur Specific [place] 1.016 (1.000-1.030) Urine Protein Negative (Negative) Urine Glucose (UA) Negative (Negative) Medications Administered Current Inpatient Medications Acetaminophen (Acetaminophen 325 Mg Tab) 650 mg PO Q4H PRN PRN Reason: Pain or Fever Stop: 09/13/23 23:32 Last Admin: 08/15/23 07:48 Dose: 650 mg Amitriptyline HCl (Amitriptyline Hcl 25 Mg Tab) 25 mg PO HS AMELIA Stop: 09/14/23 20:59 Aspirin (Aspirin 81 Mg Ectab) 81 mg PO DAILY AMELIA Stop: 09/14/23 08:59 Last Admin: 08/15/23 10:05 Dose: 81 mg Cyclobenzaprine HCl (Cyclobenzaprine Hcl 10 Mg Tab) 10 mg PO BID PRN PRN Reason: Muscle Spasm Stop: 09/14/23 06:15 Dextrose (Dextrose 50% 50 Ml Syringe) 25 - 50 ml IV UD PRN; Protocol PRN Reason: Hypoglycemia Protocol Stop: 09/14/23 06:08 Dicyclomine HCl (Dicyclomine Hcl 20 Mg Tab) 20 mg PO BID AMELIA Stop: 09/14/23 08:59 Last Admin: 08/15/23 10:04 Dose: 20 mg Gabapentin (Gabapentin 400 Mg Cap) 400 mg PO TID AMELIA Stop: 09/14/23 08:59 Last Admin: 08/15/23 10:05 Dose: 400 mg Glucagon (Glucagon For Inj 1 Mg Vial) 1 mg SQ UD PRN; Protocol PRN Reason: Hypoglycemia Protocol Stop: 09/14/23 06:08 Glucose (Glucose 10 Tab/Tube) 4 - 8 tab PO UD PRN; Protocol PRN Reason: Hypoglycemia Treatment Stop: 09/14/23 06:08 Glucose (Glucose 40% Gel 15 Gm Tube) 15 - 30 gm PO UD PRN; Protocol PRN Reason: Hypoglycemia Protocol Stop: 09/14/23 06:08 Sodium Chloride (Nss) 1,000 mls @ 100 mls/hr IV .Q10H AMELIA Stop: 08/15/23 19:32 Last Infusion: 08/15/23 10:06 Dose: Infused Lorazepam 2 mg/ Syringe 2 mls @ 2 mls/min IV Q2H PRN PRN Reason: Breakthrough Seizures Stop: 09/13/23 23:32 Levetiracetam 500 mg/ Sodium (Chloride) 105 mls @ 440 mls/hr IV BID AMELIA Stop: 09/14/23 08:59 Insulin Aspart (Insulin Aspart Per Unit Charge) 0 units SC ACHS AMELIA Stop: 09/14/23 07:29 Last Admin: 08/15/23 07:43 Dose: Not Given Miscellaneous (Carbohydrates For Hypoglycemia ) 15 - 30 gm PO UD PRN PRN Reason: Hypoglycemia Protocol Stop: 09/14/23 06:08 Nitroglycerin (Nitroglycerin Sl 0.4 Mg/Tab Tab) 0.4 mg SL Q5M PRN PRN Reason: Chest Pain Stop: 09/13/23 23:32 Quetiapine Fumarate (Quetiapine Fumarate 100 Mg Tablet) 100 mg PO BID AMELIA Stop: 09/14/23 08:59 Last Admin: 08/15/23 10:04 Dose: 100 mg Topiramate (Topiramate 25 Mg Tab) 25 mg PO BID AMELIA Stop: 09/14/23 08:59 Last Admin: 08/15/23 10:04 Dose: 25 mg
[2023-08-15] MEDS: SODIUM CHLORIDE 0.9% 1,000 ML IV SCH (12:13)
--- NOTE | 2023-08-15 18:43 | Discharge Summary ---
Date of Service August 15, 2023 Admission HPI Per Admitting Provider 58-year-old female with past medical history significant for type 2 diabetes, diabetic peripheral neuropathy, hyperlipidemia, obstructive lung lesion, GERD, slow transit constipation, nonalcoholic fatty liver disease, irritable bowel syndrome with constipation, empty sella syndrome, seizure disorder, tension headache, depression, statin intolerance presents with seizures. Patient currently is confused. Current could not get any history from the patient. Talked with the daughter on the phone. As per daughter around 5 PM within half hour she had 3 episodes of seizures. She was having blank states and some shaking in the head and confusion. Whenever she gets seizures she gets confused as per daughter. Looks like in May 2020 she had a seizure and at that time she was intubated and given Keppra and propofol and Versed and she was transferred to [facility] for management where she had continuous monitoring with no additional seizures and was weaned and extubated quickly as per neurology notes. She is on gabapentin 400 mg 3 times daily and Topamax 25 mg twice daily. As per daughter her medications list in [employer] system is mostly accurate. Past medical history. As mentioned above Past surgical history. Left breast biopsy. Colonoscopy. EGD. Colonoscopy with biopsy. Laparoscopy 3 times for adhesions. I&D of right axillary abscess. Ligation of oviducts. Total abdominal hysterectomy with removal of tubes. Social history. No smoking. No alcohol. No drug use. Family history. Mother had breast cancer. Colon cancer. Father had eye problems, [place]. Aunt has Crohn's disease. Admission Exam Per Admitting Provider Physical Exam: General- confused Head- atraumatic Eyes- PERRL. ENT- oropharynx clear Neck- supple, no JVD. Lungs- clear to auscultation no wheezing or crackles. Heart- regular rhythm; no murmur, no gallop. Abdomen- normal bowel sounds, soft, nontender, no distension. Extremities- no pretibial edema, no erythema seen. Neuro- alert, and awake. confused.; no facial palsy; no dysarthria; Not obeying commands,moves extremities. Skin- warm & dry Principal Diagnosis Breakthrough seizures. Discharge Exam Sitting at the edge of the bed without any acute distress but is very anxious Constitutional + ill appearing and average body habitus Eyes PERRL, conjunctivae normal, anicteric sclerae ENMT external ear and nose normal, oropharynx normal Neck trachea midline, no thyromegaly Respiratory no respiratory distress Auscultation: lungs clear to auscultation bilaterally Cardiovascular Rate/Rhythm: regular rate and regular rhythm; not tachycardic Heart Sounds: normal S1 and normal S2; no murmur Extremities: no edema Gastrointestinal (Abdomen) Inspection/Auscultation: normal bowel sounds; abdomen not distended Percussion/Palpation: abdomen soft; abdomen nontender Lymphatic no cervical or axillary lymphadenopathy Discharge Data Allergies Allergy/AdvReac Type Severity Reaction Status Date / Time Penicillins Allergy Unknown UNKNOWN Verified 05/26/22 23:32 ondansetron AdvReac Severe Tachycardia Verified 05/26/22 23:32 erythromycin base AdvReac Intermediate NAUSEA Verified 05/26/22 23:32 metoclopramide AdvReac Intermediate "NEURO Verified 05/26/22 23:32 COMPLICATIONS"-INVOLUNTARY MUSCLE TWITCHES sitagliptin [From Januvia] AdvReac Intermediate FACIAL & Verified 05/26/22 23:32 ARM NUMBNESS Consultations 08/14/23 20:20 ED Decision to Admit Stat 08/15/23 08:00 Consult Neurology Routine Ordered Studies 08/14/23 17:58 CT head/brain wo con Stat Hospital Course (1) Seizure: 58-year-old female with past medical history significant for type 2 diabetes, diabetic peripheral neuropathy, hyperlipidemia, obstructive lung lesion, GERD, slow transit constipation, nonalcoholic fatty liver disease, irritable bowel syndrome with constipation, empty sella syndrome, seizure disorder, tension headache, depression, statin intolerance presents with seizures. Seizures-breakthrough seizures History of seizures On gabapentin and Topamax 3 episodes of seizures in half hour per daughter Loaded with Keppra in the ER Continue with IV Keppra 500 mg twice daily Monitor on telemetry floor Seizure precautions EEG has been done but the report is pending Consult neurology-appreciate input and recommendation:-- Gabapentin 400mg TID -- Increase topamax to 50mg BID, plan for 100mg BID in 7 days -- Close follow-up Dr. Jones Remains very anxious without any more seizures Wants to leave the hospital today-discussed with the patient about the danger of leaving hospital which could include more seizure activity with injury and even She accepted the risk and wanted to leave the hospital and the was agreeable to do that to0 She was strongly advised to take the medicine for seizures as advised and keep the appointment with the neurologist as a scheduled Should be discharged home this afternoon Diabetes Hold metformin Insulin sliding scale Will monitor Depression Continue Seroquel and amitriptyline DVT prophylaxis SCDs Disposition telemetry floor Full code Total Time Total Time Spent Total Time Spent (In Minutes): 45 minutes Discharge Plan Discharge Items Patient Disposition: Home - Self-Care Reason For Visit: SEIZURES Discharge Diagnosis: Breakthrough seizures. Activity: Resume your previous activity Non-emergency contact: Primary Care Provider Call non-emergency contact if: you have any medication questions and your symptoms worsen Follow-up/Referrals: Fatou Dailey MD [Primary Care Provider] - 08/18/23 11:00 am Diet: Regular Addtl Attending Provider Instructions: Please take precautions to avoid falls Take your medications as advised Please give have follow-up appointments with the providers Take your seizure medications as advised Avoid any heights, unsupervised swimming, no driving and stay with somebody at the time until being seen by the neurologist. [facility] neurology office will call you with an appointment as soon as possible. Pending Studies at Discharge: No Stand-Alone Forms: My [facility] [employer], Smoking Cessation Medications and DC Order Prescriptions: New topiramate [Topamax] 50 mg tablet 50 mg PO BID Qty: 60 0RF Rx Instructions: For 7 days and then increase to 100 mg twice daily thereafter Continued cyclobenzaprine 10 mg tablet 10 mg PO BID PRN (Reason: Muscle Spasm) gabapentin 400 mg capsule 400 mg PO TID aspirin 81 mg tablet,delayed release (DR/EC) 81 mg PO DAILY quetiapine 100 mg tablet 100 mg PO BID amitriptyline 25 mg tablet 25 mg PO HS dicyclomine 20 mg tablet 20 mg PO BID metformin 1,000 mg tablet 500 mg PO BID Discontinued topiramate 25 mg tablet 25 mg PO BID Discharge Orders: Discharge Order (Routine); Ordered 08/15/23 Ordered By: Kya Oliveira/Other Patient Handouts: Managing Type 2 Diabetes Admission Data Admit Date/Time: 08/14/23 22:08 Attending Provider: Kya Booth Admit Provider: Giovanni Sánchez Primary Care Provider: Fatou Dailey Other Providers: Giovanni Sánchez; Madhavi Jones; Behzad Emery; Madhavi Zayas; Rufino Hobbs; Collin Samuel; Nimesh Saxena; Hugo Carter; Gayle Guzman; Brent Degroot; Joe Young; David Kumar; Marv Person; Alondra Camilo; Ute Guerin; Hugo Oliver Other Interventions: Discharge Summary Assessment (RN) Last Done: 08/15/23 12:19
[2023-08-15] MEDS ORDERED: AMITRIPTYLINE HCL 25 MG TAB PO SCH (21:00)
[2023-08-18 02:52] LABS: Marijuana Quant, GCMS Urine 1264 ng/mL (<5)
== END 2023-08-15 12:32 | disposition home or self-care (01) | DRG 101 ==
LOC: ED 17:52 → INTOOBSV 22:08 → 2S 22:08